=== PATIENT | female | born 1985 | race Caucasian/White ===

== ENCOUNTER 2016-05-03 14:51 | Emergency (ER) | payer OTHER ==
[2016-05-03] MEDS ORDERED: ONDANSETRON 4 MG ORAL DISINTEGRATING TAB (S0181) As Ordered ONE (17:37)
[2016-05-03 18:14] LABS: CONTROL LINE HCG INT CTR LINE PRESENT
--- NOTE | 2016-05-03 19:13 | EDDOCDS ---
Physician Documentation [facility] Name: Aime Hernandez Age: 30 yrs Sex: Female : 1985 Arrival Date: 05/03/2016 Time: 14:51 Bed 30 Private MD: NO PRIMARY PHYSICIAN, . Disposition: 05/03/16 18:54 Discharged to Home/Self Care. Impression: Other specified noninfective gastroenteritis and colitis. - Condition is Stable. - Discharge Instructions: Viral Gastroenteritis. - Prescriptions for ZOFRAN ODT 4 mg - dissolve 1 tablet by ORAL route 4 times per day As needed do not chew, do not swallow whole; 10 tablet. - Medication Reconciliation, Local Pharmacy Hours form. - [facility]; When: Call to arrange an appointment; Reason: To establish care. - Problem is new. - Symptoms have improved. - Notes: You are not Keep hydrated Return to the ED for any further concerns Historical: - Allergies: no known allergies; - Home Meds: 1. Mirena 20 mcg/24 hr (5 years) intrauterine IUD - PMHx: Frequent UTI; Kidney stones; - PSHx: Cholecystectomy; Lithotripsy; - Social history: Smoking status: Patient states was never smoker of tobacco. No barriers to communication noted, The patient speaks fluent Ethiopian, Speaks appropriately for age. - Family history: Not pertinent. - : The pt / caregiver states he / she is not on anticoagulants. Home medication list is obtained from the patient. - Exposure Risk Screening:: None identified. CRYSTALIZER: 05/03 15:10 LMP N/A - control method mlb1 Vital Signs: 14:52 BP 114 / 79; Pulse 107; Resp 18; Temp 96.8; Pulse Ox 96% on R/A; Weight 77.11 kg / 170 elp lbs; Height 5 ft. 7 in. (170.18 cm); 17:56 BP 113 / 70 Supine; Pulse 72; ms18 17:56 BP 117 / 75 Sitting; Pulse 79; ms18 17:56 BP 115 / 81 Standing; Pulse 82; ms18 19:10 BP 121 / 84; Pulse 80; Resp 17; Temp 97.6(O); Pulse Ox 99% on R/A; mb9 14:52 Body Mass Index 26.63 (77.11 kg, 170.18 cm) elp MDM: 16:32 [facility] Payment Agreement was scanned into [employer] and attached to record. [facility] 16:32 Financial registration complete. gjb 16:54 Orthostatic VS ordered. le 16:54 Ondansetron ODT Oral Disintegrating Tablet 4 mg PO once ordered. le 16:54 Fluid Challenge ordered. le 16:54 HCG,Serum Qualitative Ordered. EDMS 18:53 HCG,Serum Qualitative Reviewed. le Administered Medications: 17:39 Drug: Ondansetron ODT 4 mg [ondansetron 4 mg disintegrating tablet (1 tabs)] Route: PO; ms18 18:17 Follow up: Response: Nausea is decreased mb9 Signatures: Dispatcher [employer] EDRI Maxi Cardenas RN RN mlb1 Massiel Hoffman, NIECY TOWER ATTENDANT Maxi Smyth,RN RN mb9 Francisca Prado gjKacie Macias RN ms18 The chart was reviewed and I authenticate all verbal orders and agree with the evaluation and treatment provided.Corrections: (The following items were deleted from the chart) 15:11 15:10 Home Meds: none; mlb1 mlnavid Attachments: 16:32 [facility] Payment Agreement [facility] MTDD
--- NOTE | 2016-05-03 19:13 | EDDOCDS ---
Nurse's Notes [facility] Name: Aime Hernandez Age: 30 yrs Sex: Female : 1985 Arrival Date: 05/03/2016 Time: 14:51 Bed 30 Private MD: NO PRIMARY PHYSICIAN, . Diagnosis: Other specified noninfective gastroenteritis and colitis Presentation: 05/03 15:08 Presenting complaint: Patient states: N/V/D abdominal cramping, "one positive home mlb1 and one negative", began three days ago. Adult Sepsis Screening: The patient does not have new or worsening altered mentation. Patient's respiratory rate is less than 22. Systolic blood pressure is greater than 100. Patient has a qSOFA score of 0- Negative Sepsis Screen. Suicide/Homicide risk assessment- the patient denies having any suicidal and/or homicidal ideations and does not present with any other emotional, behavioral or mental health complaints. Status: Patient is not a enrollment services vice president or dependent. Transition of care: patient was not received from another setting of care. 15:08 Acuity: FAINA Level 3 mlb1 15:08 Method Of Arrival: Walkin/Carried/Asstd mlb1 Triage Assessment: 15:10 General: Appears in no apparent distress, Behavior is appropriate for age, cooperative. mlb1 Pain: Location: abdomen Pain currently is 2 out of 10 on a pain scale. HIV screening NA for this visit Offered previously. GI: Reports diarrhea, nausea, vomiting. MEETING/EVENT PLANNER: 15:10 LMP N/A - control method mlb1 Historical: - Allergies: no known allergies; - Home Meds: 1. Mirena 20 mcg/24 hr (5 years) intrauterine IUD - PMHx: Frequent UTI; Kidney stones; - PSHx: Cholecystectomy; Lithotripsy; - Social history: Smoking status: Patient states was never smoker of tobacco. No barriers to communication noted, The patient speaks fluent Turkish, Speaks appropriately for age. - Family history: Not pertinent. - : The pt / caregiver states he / she is not on anticoagulants. Home medication list is obtained from the patient. - Exposure Risk Screening:: None identified. Screenin:10 Screening information is obtained from the patient. Fall risk: No risks identified. mb9 Assistance ADL's: requires no assistance with activities of daily living. Abuse/DV Screen: The patient / caregiver reports he/she is: not in a situation that causes fear, pain or injury. Nutritional screening: No deficits noted. Advance Directives: There is no active DNR order. home support is adequate. Assessment: 17:57 General: Appears in no apparent distress, uncomfortable, Behavior is appropriate for ms18 age, cooperative. Pain: Location: right lower quadrant and left lower quadrant. Neurological: Level of Consciousness is awake, alert, obeys commands, Oriented to. Respiratory: No deficits noted. GI: Abdomen is flat, non- distended. Derm: Skin is pink, warm & dry. 18:16 General: Appears uncomfortable, Behavior is appropriate for age, cooperative. mb9 Respiratory: Airway is patent Respiratory effort is even, unlabored. GI: Reports nausea. 19:10 Reassessment: Patient appears in no apparent distress at this time. Patient states mb9 symptoms have improved. General: Appears. General: Appears in no apparent distress, Behavior is cooperative. Respiratory: Airway is patent Respiratory effort is even, unlabored. Vital Signs: 14:52 BP 114 / 79; Pulse 107; Resp 18; Temp 96.8; Pulse Ox 96% on R/A; Weight 77.11 kg; elp Height 5 ft. 7 in. (170.18 cm); 17:56 BP 113 / 70 Supine; Pulse 72; ms18 17:56 BP 117 / 75 Sitting; Pulse 79; ms18 17:56 BP 115 / 81 Standing; Pulse 82; ms18 19:10 BP 121 / 84; Pulse 80; Resp 17; Temp 97.6(O); Pulse Ox 99% on R/A; mb9 14:52 Body Mass Index 26.63 (77.11 kg, 170.18 cm) [facility] Vitals: 14:52 Log In Time: May 03, 2016 at 14:50. [facility] ED Course: 14:52 Patient visited by Richa Rothman PCA. elp 14:52 NO PRIMARY PHYSICIAN, . is Private Physician. elp 14:52 Patient moved to Waiting elp 14:54 Patient visited by Richa Rothman PCA. elp 14:54 Patient moved to Pre RCE elp 15:08 Patient visited by Maxi Cardenas, ELIZABETH. mlb1 15:09 Triage Initiated mlb1 15:11 Patient visited by Maxi Cardenas RN. mlb1 16:16 Massiel Hoffman FNP is [facility]. le 16:16 Patient moved to 30 [facility] 16:23 Patient visited by Massiel Hoffman FNP. le 16:23 Patient visited by Massiel Hoffman FNP. le 16:32 [facility] Payment Agreement was scanned into [facility] and attached to record. gjb 16:37 Patient name changed from Aime\\S\\Alesia\\S\\David\\S\\ to Aime\\S\\L\\S\\David. EDMS 17:39 Patient visited by Kacie Priest RN. ms18 18:16 Patient visited by Maxi Forbes RN. mb9 18:54 [facility] is Referral Physician. le 19:10 The patient / caregiver is instructed regarding the plan of care and ED course. mb9 19:10 No IV's were initiated during this patient's visit. No procedures done that require mb9 assistance. Administered Medications: 17:39 Drug: Ondansetron ODT 4 mg [ondansetron 4 mg disintegrating tablet (1 tabs)] Route: PO; ms18 18:17 Follow up: Response: Nausea is decreased mb9 Order Results: Lab Order: HCG,Serum Qualitative; SPEC'M 05/03/16 17:44 Test: HCG, SERUM QUALITATIVE; Value: NEGATIVE; Range: NEGATIVE; Status: F Outcome: 18:54 Discharge ordered by Provider. le 19:10 Discharge Assessment: Patient awake, alert and oriented x 3. No cognitive and/or mb9 functional deficits noted. Patient verbalized understanding of disposition instructions. patient administered narcotics - no. The following High Risk Discharge criteria are identified: None. Discharged to home ambulatory. Condition: good Condition: stable Condition: improved. Discharge instructions given to patient, Instructed on discharge instructions, follow up and referral plans. medication usage, Demonstrated understanding of instructions, medications, Pt was receptive of discharge instructions/ teaching. Prescriptions given X 1. No special radiology studies were completed. Property :Personal belongings accompany Pt. 19:12 Patient left the ED. mb9 Signatures: Dispatcher [employer] EDMS Chloe Anaya RN RN mcp Barney, Michael B, RN RN mlb1 Massiel Hoffman FNP FNP le Patchen, Richa, POND SUPERVISOR POND SUPERVISOR elp Kacie Priest RN RN ms18 Maxi ForbesRN RN mb9 Francisca Prado Corrections: (The following items were deleted from the chart) 15:11 15:10 Home Meds: none; mlb1 mlb1 MTDD
--- NOTE | 2016-05-05 20:14 | EDDOCDS ---
Physician Documentation [facility] Name: Aime Hernandez Age: 30 yrs Sex: Female : 1985 Arrival Date: 05/03/2016 Time: 14:51 Bed 30 Private MD: NO PRIMARY PHYSICIAN, . Disposition: 05/03/16 18:54 Discharged to Home/Self Care. Impression: Other specified noninfective gastroenteritis and colitis. - Condition is Stable. - Discharge Instructions: Viral Gastroenteritis. - Prescriptions for ZOFRAN ODT 4 mg - dissolve 1 tablet by ORAL route 4 times per day As needed do not chew, do not swallow whole; 10 tablet. - Medication Reconciliation, Local Pharmacy Hours form. - Follow up: [facility]; When: Call to arrange an appointment; Reason: To establish care. - Problem is new. - Symptoms have improved. - Notes: You are not Keep hydrated Return to the ED for any further concerns Historical: - Allergies: no known allergies; - Home Meds: 1. Mirena 20 mcg/24 hr (5 years) intrauterine IUD - PMHx: Frequent UTI; Kidney stones; - PSHx: Cholecystectomy; Lithotripsy; - Social history: Smoking status: Patient states was never smoker of tobacco. No barriers to communication noted, The patient speaks fluent Palauan, Speaks appropriately for age. - Family history: Not pertinent. - : The pt / caregiver states he / she is not on anticoagulants. Home medication list is obtained from the patient. - Exposure Risk Screening:: None identified. TONGUE AND QUARTER STITCHER: 05/03 15:10 LMP N/A - control method mlb1 Vital Signs: 14:52 BP 114 / 79; Pulse 107; Resp 18; Temp 96.8; Pulse Ox 96% on R/A; Weight 77.11 kg / 170 elp lbs; Height 5 ft. 7 in. (170.18 cm); 17:56 BP 113 / 70 Supine; Pulse 72; ms18 17:56 BP 117 / 75 Sitting; Pulse 79; ms18 17:56 BP 115 / 81 Standing; Pulse 82; ms18 19:10 BP 121 / 84; Pulse 80; Resp 17; Temp 97.6(O); Pulse Ox 99% on R/A; mb9 14:52 Body Mass Index 26.63 (77.11 kg, 170.18 cm) elp MDM: 16:32 [facility] Payment Agreement was scanned into [employer] and attached to record. [facility] 16:32 Financial registration complete. gjb 16:54 Orthostatic VS ordered. le 16:54 Ondansetron ODT Oral Disintegrating Tablet 4 mg PO once ordered. le 16:54 Fluid Challenge ordered. le 16:54 HCG,Serum Qualitative Ordered. EDMS 18:53 HCG,Serum Qualitative Reviewed. le 05/04 12:42 T-Sheet-- Draft Copy was scanned into [employer] and attached to record. gb Administered Medications: 05/03 17:39 Drug: Ondansetron ODT 4 mg [ondansetron 4 mg disintegrating tablet (1 tabs)] Route: PO; ms18 18:17 Follow up: Response: Nausea is decreased mbJames Signatures: Dispatcher [employer] EDMS Helen Hays, Reg Reg gb Maxi Cardenas RN ELIZABETH mlb1 Massiel Hoffman, SUPERVISOR LOADING SUPERVISOR LOADING Maxi Smyth RN RN mb9 Francisca Prado gjKacie Macias RN ms18 The chart was reviewed and I authenticate all verbal orders and agree with the evaluation and treatment provided.Corrections: (The following items were deleted from the chart) 15:11 15:10 Home Meds: none; rory valadez Attachments: 16:32 [facility] Payment Agreement [facility] 05/04 12:42 T-Sheet-- Draft Copy gb Chart Complete MTDD
--- NOTE | 2016-05-05 20:14 | EDDOCDS ---
Physician Documentation [facility] Name: Aime Hernandez Age: 30 yrs Sex: Female : 1985 Arrival Date: 05/03/2016 Time: 14:51 Bed 30 Private MD: NO PRIMARY PHYSICIAN, . Disposition: 05/03/16 18:54 Discharged to Home/Self Care. Impression: Other specified noninfective gastroenteritis and colitis. - Condition is Stable. - Discharge Instructions: Viral Gastroenteritis. - Prescriptions for ZOFRAN ODT 4 mg - dissolve 1 tablet by ORAL route 4 times per day As needed do not chew, do not swallow whole; 10 tablet. - Medication Reconciliation, Local Pharmacy Hours form. - Follow up: [facility]; When: Call to arrange an appointment; Reason: To establish care. - Problem is new. - Symptoms have improved. - Notes: You are not Keep hydrated Return to the ED for any further concerns Historical: - Allergies: no known allergies; - Home Meds: 1. Mirena 20 mcg/24 hr (5 years) intrauterine IUD - PMHx: Frequent UTI; Kidney stones; - PSHx: Cholecystectomy; Lithotripsy; - Social history: Smoking status: Patient states was never smoker of tobacco. No barriers to communication noted, The patient speaks fluent Indonesian, Speaks appropriately for age. - Family history: Not pertinent. - : The pt / caregiver states he / she is not on anticoagulants. Home medication list is obtained from the patient. - Exposure Risk Screening:: None identified. RECOVERY ENGINEER: 05/03 15:10 LMP N/A - control method mlb1 Vital Signs: 14:52 BP 114 / 79; Pulse 107; Resp 18; Temp 96.8; Pulse Ox 96% on R/A; Weight 77.11 kg / 170 elp lbs; Height 5 ft. 7 in. (170.18 cm); 17:56 BP 113 / 70 Supine; Pulse 72; ms18 17:56 BP 117 / 75 Sitting; Pulse 79; ms18 17:56 BP 115 / 81 Standing; Pulse 82; ms18 19:10 BP 121 / 84; Pulse 80; Resp 17; Temp 97.6(O); Pulse Ox 99% on R/A; mb9 14:52 Body Mass Index 26.63 (77.11 kg, 170.18 cm) elp MDM: 16:32 [facility] Payment Agreement was scanned into [employer] and attached to record. [facility] 16:32 Financial registration complete. gjb 16:54 Orthostatic VS ordered. le 16:54 Ondansetron ODT Oral Disintegrating Tablet 4 mg PO once ordered. le 16:54 Fluid Challenge ordered. le 16:54 HCG,Serum Qualitative Ordered. EDMS 18:53 HCG,Serum Qualitative Reviewed. le 05/04 12:42 T-Sheet-- Draft Copy was scanned into [employer] and attached to record. gb Administered Medications: 05/03 17:39 Drug: Ondansetron ODT 4 mg [ondansetron 4 mg disintegrating tablet (1 tabs)] Route: PO; ms18 18:17 Follow up: Response: Nausea is decreased mbJames Signatures: Dispatcher [employer] EDMS Helen Hays, Reg Reg gb Maxi Cardenas RN ELIZABETH mlb1 Massiel Hoffman, [employer]OSK SALES REPRESENTATIVE KIOSK SALES REPRESENTATIVE Maxi Smyth RN RN mb9 Francisca Prado gjKacie Macias RN ms18 The chart was reviewed and I authenticate all verbal orders and agree with the evaluation and treatment provided.Corrections: (The following items were deleted from the chart) 15:11 15:10 Home Meds: none; rory valadez Attachments: 16:32 [facility] Payment Agreement [facility] 05/04 12:42 T-Sheet-- Draft Copy gb Chart Complete MTDD
--- NOTE | 2016-05-05 20:14 | EDDOCDS ---
Nurse's Notes [facility] Name: Aime Hernandez Age: 30 yrs Sex: Female : 1985 Arrival Date: 05/03/2016 Time: 14:51 Bed 30 Private MD: NO PRIMARY PHYSICIAN, . Diagnosis: Other specified noninfective gastroenteritis and colitis Presentation: 05/03 15:08 Presenting complaint: Patient states: N/V/D abdominal cramping, "one positive home mlb1 and one negative", began three days ago. Adult Sepsis Screening: The patient does not have new or worsening altered mentation. Patient's respiratory rate is less than 22. Systolic blood pressure is greater than 100. Patient has a qSOFA score of 0- Negative Sepsis Screen. Suicide/Homicide risk assessment- the patient denies having any suicidal and/or homicidal ideations and does not present with any other emotional, behavioral or mental health complaints. Status: Patient is not a agricultural service technician or dependent. Transition of care: patient was not received from another setting of care. 15:08 Acuity: FAINA Level 3 mlb1 15:08 Method Of Arrival: Walkin/Carried/Asstd mlb1 Triage Assessment: 15:10 General: Appears in no apparent distress, Behavior is appropriate for age, cooperative. mlb1 Pain: Location: abdomen Pain currently is 2 out of 10 on a pain scale. HIV screening NA for this visit Offered previously. GI: Reports diarrhea, nausea, vomiting. VET ASSISTANT: 15:10 LMP N/A - control method mlb1 Historical: - Allergies: no known allergies; - Home Meds: 1. Mirena 20 mcg/24 hr (5 years) intrauterine IUD - PMHx: Frequent UTI; Kidney stones; - PSHx: Cholecystectomy; Lithotripsy; - Social history: Smoking status: Patient states was never smoker of tobacco. No barriers to communication noted, The patient speaks fluent Macedonian, Speaks appropriately for age. - Family history: Not pertinent. - : The pt / caregiver states he / she is not on anticoagulants. Home medication list is obtained from the patient. - Exposure Risk Screening:: None identified. Screenin:10 Screening information is obtained from the patient. Fall risk: No risks identified. mb9 Assistance ADL's: requires no assistance with activities of daily living. Abuse/DV Screen: The patient / caregiver reports he/she is: not in a situation that causes fear, pain or injury. Nutritional screening: No deficits noted. Advance Directives: There is no active DNR order. home support is adequate. Assessment: 17:57 General: Appears in no apparent distress, uncomfortable, Behavior is appropriate for ms18 age, cooperative. Pain: Location: right lower quadrant and left lower quadrant. Neurological: Level of Consciousness is awake, alert, obeys commands, Oriented to. Respiratory: No deficits noted. GI: Abdomen is flat, non- distended. Derm: Skin is pink, warm & dry. 18:16 General: Appears uncomfortable, Behavior is appropriate for age, cooperative. mb9 Respiratory: Airway is patent Respiratory effort is even, unlabored. GI: Reports nausea. 19:10 Reassessment: Patient appears in no apparent distress at this time. Patient states mb9 symptoms have improved. General: Appears. General: Appears in no apparent distress, Behavior is cooperative. Respiratory: Airway is patent Respiratory effort is even, unlabored. Vital Signs: 14:52 BP 114 / 79; Pulse 107; Resp 18; Temp 96.8; Pulse Ox 96% on R/A; Weight 77.11 kg; elp Height 5 ft. 7 in. (170.18 cm); 17:56 BP 113 / 70 Supine; Pulse 72; ms18 17:56 BP 117 / 75 Sitting; Pulse 79; ms18 17:56 BP 115 / 81 Standing; Pulse 82; ms18 19:10 BP 121 / 84; Pulse 80; Resp 17; Temp 97.6(O); Pulse Ox 99% on R/A; mb9 14:52 Body Mass Index 26.63 (77.11 kg, 170.18 cm) [facility] Vitals: 14:52 Log In Time: May 03, 2016 at 14:50. [facility] ED Course: 14:52 Patient visited by Richa Rothman PCA. elp 14:52 NO PRIMARY PHYSICIAN, . is Private Physician. elp 14:52 Patient moved to Waiting elp 14:54 Patient visited by Richa Rothman PCA. elp 14:54 Patient moved to Pre RCE elp 15:08 Patient visited by Maxi Cardenas, ELIZABETH. mlb1 15:09 Triage Initiated mlb1 15:11 Patient visited by Maxi Cardenas RN. mlb1 16:16 [facility] le 16:16 Patient moved to 30 [facility] 16:23 Patient visited by Massiel Hoffman FNP. le 16:23 Patient visited by Massiel Hoffman FNP. le 16:32 [facility] Payment Agreement was scanned into [employer] and attached to record. gjb 16:37 Patient name changed from Aime\\S\\Alesia\\S\\David\\S\\ to Aime\\S\\L\\S\\David. EDMS 17:39 Patient visited by Kacie Priest RN. ms18 18:16 Patient visited by Maxi Forbes RN. mb9 18:54 [facility] is Referral Physician. le 19:10 The patient / caregiver is instructed regarding the plan of care and ED course. mb9 19:10 No IV's were initiated during this patient's visit. No procedures done that require mb9 assistance. 05/04 12:42 T-Sheet-- Draft Copy was scanned into [employer] and attached to record. gb Administered Medications: 05/03 17:39 Drug: Ondansetron ODT 4 mg [ondansetron 4 mg disintegrating tablet (1 tabs)] Route: PO; ms18 18:17 Follow up: Response: Nausea is decreased mb9 Order Results: Lab Order: HCG,Serum Qualitative; SPEC'M 05/03/16 17:44 Test: HCG, SERUM QUALITATIVE; Value: NEGATIVE; Range: NEGATIVE; Status: F Outcome: 18:54 Discharge ordered by Provider. le 19:10 Discharge Assessment: Patient awake, alert and oriented x 3. No cognitive and/or mb9 functional deficits noted. Patient verbalized understanding of disposition instructions. patient administered narcotics - no. The following High Risk Discharge criteria are identified: None. Discharged to home ambulatory. Condition: good Condition: stable Condition: improved. Discharge instructions given to patient, Instructed on discharge instructions, follow up and referral plans. medication usage, Demonstrated understanding of instructions, medications, Pt was receptive of discharge instructions/ teaching. Prescriptions given X 1. No special radiology studies were completed. Property :Personal belongings accompany Pt. 19:12 Patient left the ED. mb9 Signatures: Dispatcher [employer] EDMS Chloe Anaya RN RN [facility] Helen Hays, Reg Reg Maxi Fraire RN RN mlb1 Massiel Hoffman, FARMWORKER ANIMAL FARMWORKER ANIMAL Richa Wallace, FABRIC AND ACCESSORIES ESTIMATOR FABRIC AND ACCESSORIES ESTIMATOR elp Kacie Priest RN RN ms18 Maxi ForbesRN RN mb9 Francisca Prado Corrections: (The following items were deleted from the chart) 15:11 15:10 Home Meds: none; mlb1 mlb1 Chart Complete MTDD
== END 2016-05-03 19:12 | disposition home or self-care (01) ==
LOC: M ED 14:51
DX: K52.9 Noninfective gastroenteritis and colitis, unspecified (principal); N39.0 Urinary tract infection, site not specified; Z87.440 Personal history of urinary (tract) infections; Z87.442 Personal history of urinary calculi; Z97.5 Presence of (intrauterine) contraceptive device; Z79.3 Long term (current) use of hormonal contraceptives

== ENCOUNTER 2016-08-16 21:23 | Emergency (ER) | payer OTHER ==
[~2016-08-16] VITALS: Ht 170.2 cm; Wt 68.0 kg
[2016-08-16] MEDS ORDERED: MULT1TAB10 PO (21:39)
[2016-08-16] MEDS ORDERED: METOCLOPRAMIDE INJ 10MG/2ML VIAL (J2765) IV ONE (22:45)
[2016-08-16] MEDS ORDERED: NS 1,000 ML IV ONE (22:45)
[2016-08-16 23:25] LABS: BASO % 0.5 % (0.0-1.0); EOS # 0.1 K/mm3 (0.0-0.50); EOS % 2.7 % (0.0-3.0); LARGE UNSTAINED CELL # 0.1 K/mm3 (0.0-0.4); LARGE UNSTAINED CELL % 1.9 % (0.0-4.0); LYMPH # 1.9 K/mm3 (1.5-4.5); LYMPH % 37.2 % (24.0-44.0); MEAN CORPUSCULAR HEMOGLOBIN 31.1 pg (27.0-33.0); MEAN CORPUSCULAR HGB CONC 33.8 g/dl (32.0-36.5); MONO # 0.4 K/mm3 (0.0-0.8); NEUTROPHILS # 2.4 K/mm3 (1.8-7.7); NEUTROPHILS % 49.7 % (36.0-66.0); PLATELET COUNT, AUTOMATED 216 k/mm3 (150-450); RED CELL DISTRIBUTION WIDTH 12.2 % (11.5-14.5); WHITE BLOOD COUNT 4.9 K/mm3 (4.0-10.0)
[2016-08-16 23:40] LABS: ANION GAP 5 MEQ/L (8-16); BLOOD UREA NITROGEN 14 MG/DL (7-18); CALCIUM LEVEL 8.8 MG/DL (8.5-10.1); CARBON DIOXIDE LEVEL 28 MEQ/L (21-32); CHLORIDE LEVEL 108 MEQ/L (98-107); CREATININE FOR GFR 0.59 MG/DL (0.55-1.02); GLOMERULAR FILTRATION RATE > 60.0 (>60); GLUCOSE, FASTING 100 MG/DL (70-105); POTASSIUM SERUM 3.8 MEQ/L (3.5-5.1); SODIUM LEVEL 141 MEQ/L (136-145)
[2016-08-17 00:09] VITALS: BP 109/68
== END 2016-08-17 00:30 | disposition home or self-care (01) ==
LOC: M ED 23:40
DX: R51 Headache (principal)

== ENCOUNTER → 2019-12-16 | Outpatient (CLI) | payer BC ==
[~2019-12-16] MED LIST: MULT1TAB10 PO
--- NOTE | 2020-01-06 13:10 | REP ---
LUMBOSACRAL SPINE SERIES CLINICAL: Lower back pain without trauma. TECHNIQUE: AP, lateral, bilateral oblique, and coned down views of the lumbosacral spine. FINDINGS: Alignment and lordosis maintained. No acute fracture/compression injury or subluxation. Endplate sclerosis with disc space narrowing at L4-5 and L5-S1 noted along with mild associated hypertrophic facet changes. Remainder of the examination appears normal. IMPRESSION: Moderate degenerative changes at L4-5 and L5-S1. MTDD
--- NOTE | 2020-01-06 13:10 | REP ---
RIGHT HIP SERIES CLINICAL: Right hip pain. TECHNIQUE: Neutral and frog lateral views of the right hip. FINDINGS: Osseous structures, joint spaces, and surrounding soft tissues are normal and age appropriate. No evidence for acute or healed injury. No overt arthritic changes. IMPRESSION: Normal age appropriate right hip radiographs. MTDD
== END ==
LOC: M WUC 10:58
PROVIDERS: ATTEND Nurse Practitioner Family
DX: M51.36 Other intervertebral disc degeneration, lumbar region (principal); M51.37 Other intervertebral disc degeneration, lumbosacral region; M25.551 Pain in right hip

== ENCOUNTER 2020-05-04 08:33 | Emergency (ER) | payer BC ==
[~2020-05-04] VITALS: Ht 170.2 cm; Wt 78.3 kg
[2020-05-04] MEDS ORDERED: PREN1CHW6 PO (08:40)
[2020-05-04 13:18] VITALS: BP 135/82
[2020-05-05] MEDS ORDERED: ATIV2TAB PO (06:04)
== END 2020-05-04 13:20 | disposition home or self-care (01) ==
LOC: M ED 08:33
DX: O99.341 Other mental disorders complicating pregnancy, first trimester (principal); F41.9 Anxiety disorder, unspecified; Z79.899 Other long term (current) drug therapy; Z3A.00 Weeks of gestation of pregnancy not specified

== ENCOUNTER 2020-05-05 04:26 | Emergency (ER) | payer BC ==
[~2020-05-05] VITALS: Ht 170.2 cm; Wt 77.5 kg
[2020-05-05 04:26] VITALS: BP 139/85
[~2020-05-05 04:26] MED LIST changes: +PREN1CHW6 PO
--- OUTSIDE RECORDS SUMMARY | 2020-05-05 04:31 | CCD | Continuity of Care Document ---
Author Author Aime MOLINA CELLOPHANE TESTER Organization Unknown Address [facility] [place] [address] Phone [phone] Problems Description No Information Available Social History Type Date Description Comments Sex Unknown ETOH Use Occasionally consumes alcohol Tobacco Use Start: Unknown Patient has never smoked Smoking Status Reviewed: 04/14/20 Patient has never smoked Allergies, Adverse Reactions, Alerts Description No Known Drug Allergies Medications Active Medications SIG Qnty Indications Ordering Provide r Date No Active Medications Unknown 09/2020 History Medications Prednisone 20mg Tablets 1 tab twice a day for 4 days 8tabs M54.5 Jt Sherwood JR., M.D. 11/2019 - 12/20/2019 Cyclobenzaprine HCL 5mg Tablets take 1 to 2 tablets by mouth three times a day as needed for muscle spasms 30tabs M54.5 Jt Sherwood JR., M.D. 12/16/2019 - 12/26/2019 Immunizations Description No Information Available Vital Signs Date Vital Result Comment 04/14/2020 6:36pm BP Systolic 114 mmHg BP Diastolic 78 mmHg Heart Rate 83 /min Respiratory Rate 15 /min O2 % BldC Oximetry 98 % Body Temperature 98.0 F Weight 170.00 lb Height 67 inches 5'7" BMI (Body Mass Index) 26.6 kg/m2 Pain Level 2 12/16/2019 10:37am BP Systolic 112 mmHg BP Diastolic 76 mmHg Heart Rate 81 /min O2 % BldC Oximetry 99 % Body Temperature 98.5 F Weight 172.00 lb Height 67 inches 5'7" BMI (Body Mass Index) 26.9 kg/m2 Pain Level 5 Results Description No Information Available Procedures Description No Information Available Medical Devices Description No Information Available Encounters Type Date Location Provider Dx Diagnosis Office Visit 12/16/2019 11:15a Main Office Judith Molina NP M25. 551 Pain in right hip M54.5 Low back pain Assessments Date Code Description Provider 04/14/2020 M79.671 Pain in right foot Judith cortez NP 04/14/2020 M54.5 Low back pain Judith jones NP 12/16/2019 M25.551 Pain in right hip Judith pollack NP 12/16/2019 M54.5 Low back pain JOSE Brown 12/16/2019 M54.5 Low back pain Judith jones NP 12/16/2019 M25.551 Pain in right hip JOSE Mason Plan of Treatment 04/14/2020 - Judith Molina NP* M79.671 Pain in right foot* Comments:* ?bunion vs irritation from work bootsRICE, alternate with heatfollow up PRN or with PCPpatient v/u & agrees to plan * M54.5 Low back pain* Comments:* xray deferred by patientrefer to [facility] for ongoing issue, patient reports minimal relief with steroids & muscle relaxerRICE, alternate with heatdiscussed red flag sx that warrant re-ev aluation or trip to the ERf/u PRN or with PCPpatient v/u & agrees to plan * All * New Medication:* No Active Medications - Functional Status Description No Information Available Mental Status Description No Information Available Referrals Description No Information Available
--- OUTSIDE RECORDS SUMMARY | 2020-05-05 04:31 | CCD ---
Author Aime Clemente Organization Unknown Address [address] [address] Phone Care Team Providers Care Push Button Switch Assembler Name Role Phone Anai Blood PCP Allergies, Adverse Reactions, Alerts No Data in Section Problem List Concept Problem Description Status Start Date Created Date Resolv ed Date Snomed Code F33.9 Major Depressive Disorder, Recurrent episode, Unspecif ied Active 05/04/2020 Medications No Data in Section Social History Social History Element Description Concept Effective Date Smoking Status Unknown if ever smoked [id number] Immunizations No Data in Section Vital Signs No Data in Section Procedures Date Concept Id Description Targeted Site Concept Targeted Site Concept Type 05/04/2020 H7025-06 TEMPMHCTelemed-Crisis Brief CPT Patient has no history of implantable de vices Encounters Encounter Start Date End Date Encounter Type Description Diagnosis Di agnosis Desc Location Author First Name Author Last Name Npid Taxonomy Cod e Taxonomy Desc Phone Number Location Addr1 Location Addr2 Location [facility] Location [facility] Location [facility] [id number] 05/04/2020 05/04/2020 L6146-74 TEMPMHCTelemed-Crisis Brief F33.9 Major depressive disorder, recurrent, unspecified [facility] Jeremi Ospina [id number] Assistant Professor Of Life Sciences [phone] [address] [address] Plan of Treatment No Data in Section Lab Results No Data in Section Instructions No Data in Section Insurance Providers Insurance Id Policy Effective Date Policy Thru Date Company N warren [id number] 2019 [employer]
--- OUTSIDE RECORDS SUMMARY | 2020-05-05 04:31 | CCD | Continuity of Care Document ---
Author Author Aime MILLIGAN Organization Unknown Address [facility] [place] [address] Phone [phone] Care Team Providers Care Green Ware Caster Name Role Phone [facility] AUTM [phone] Problems Description No Information Available Social History Type Date Description Comments Sex Unknown ETOH Use Occasionally consumes alcohol Tobacco Use Start: Unknown Patient has never smoked Smoking Status Reviewed: 04/17/20 Patient has never smoked Allergies, Adverse Reactions, Alerts Description No Known Drug Allergies Medications Active Medications SIG Qnty Indications Ordering Provide r Date Sulfamethoxazole/Trimethoprim DS 800-160mg Tablets 1 by mouth twice a day x 7 days 14tabs L03.115 Jt Sherwood JR., M.D. 04/17/2020 History Medications No Active Medications Unknown 09/2020 - 04/17/2020 Prednisone 20mg Tablets 1 tab twice a day for 4 days 8tabs M54.5 Jt Sherwood JR., M.D. 11/2019 - 12/20/2019 Cyclobenzaprine HCL 5mg Tablets take 1 to 2 tablets by mouth three times a day as needed for muscle spasms 30tabs M54.5 Jt Sherwood JR., M.D. 12/16/2019 - 12/26/2019 Immunizations Description No Information Available Vital Signs Date Vital Result Comment 04/17/2020 3:26pm BP Systolic 128 mmHg BP Diastolic 85 mmHg Heart Rate 92 /min Respiratory Rate 18 /min O2 % BldC Oximetry 97 % Body Temperature 98.0 F Weight 160.00 lb Pain Level 10 04/14/2020 6:36pm BP Systolic 114 mmHg BP Diastolic 78 mmHg Heart Rate 83 /min Respiratory Rate 15 /min O2 % BldC Oximetry 98 % Body Temperature 98.0 F Weight 170.00 lb Height 67 inches 5'7" BMI (Body Mass Index) 26.6 kg/m2 Pain Level 2 Results Description No Information Available Procedures Description No Information Available Medical Devices Description No Information Available Encounters Type Date Location Provider Dx Diagnosis Office Visit 04/17/2020 3:10p Main Office JOSE Branham L03.1 15 Cellulitis of right lower limb Office Visit 04/14/2020 5:40p Main Office Judith Tellez NP M79. 671 Pain in right foot M54.5 Low back pain Office Visit 12/16/2019 11:15a Main Office Judith Tellez NP M25. 551 Pain in right hip M54.5 Low back pain Assessments Date Code Description Provider 04/17/2020 L03.115 Cellulitis of right lower limb JOSE Deleon 04/14/2020 M79.671 Pain in right foot Judith Jennyfertuan bazzia, TRACEY 04/14/2020 M54.5 Low back pain Judith Jennyfersalima jones, CASHIER PAYMENTS RECEIVED 12/16/2019 M25.551 Pain in right hip Judithamberly pollack, TRACEY 12/16/2019 M54.5 Low back pain JOSE Brown 12/16/2019 M54.5 Low back pain Judithamberly jones, CASHIER PAYMENTS RECEIVED 12/16/2019 M25.551 Pain in right hip JOSE Mason Plan of Treatment 04/17/2020 - JOSE Branham* L03.115 Cellulitis of right lower limb* New Medication:* Sulfamethoxazole/Trimethoprim DS 800-160 mg - 1 by mouth twice a day x 7 days * Comments:* abx as directed, warm soapy soaks multiple times daily, elevate when sitting. follow up with PCP or return if worse or not baseline by end of abx course Functional Status Description No Information Available Mental Status Description No Information Available Referrals Refer to Reason for Referral Status Appt Date Uriel Islas MD Created [address] [place] [address] [phone]
--- OUTSIDE RECORDS SUMMARY | 2020-05-05 04:31 | CCD ---
Author Author Aime Blood Organization Unknown Address [address] [address] Phone Care Team Providers Care Party Plan Sales Unit Advisor Name Role Phone Jeremi Anai PCP Allergies, Adverse Reactions, Alerts No Data in Section Problem List Concept Problem Description Status Start Date Created Date Resolv ed Date Snomed Code F33.9 Major Depressive Disorder, Recurrent episode, Unspecif ied Active 04/09/2020 Medications No Data in Section Social History Social History Element Description Concept Effective Date Smoking Status Unknown if ever smoked [id number] Immunizations No Data in Section Vital Signs No Data in Section Procedures Date Concept Id Description Targeted Site Concept Targeted Site Concept Type 04/07/2020 63180 Brief Individual Psychotherapy - 30 min CPT Patient has no history of implantable de vices Encounters Encounter Start Date End Date Encounter Type Description Diagnosis Di agnosis Desc Location Author First Name Author Last Name Npid Taxonomy Cod e Taxonomy Desc Phone Number Location Addr1 Location Addr2 Location [facility] Location [facility] [id number] 04/07/2020 04/07/2020 85709 Brief Individual Psychoth erapy - 30 min F33.9 Major depressive disorder, recurrent, unspecified Comm [facility] Jeremi Ospina [id number] Leak Detector [id number] [address] [address] Plan of Treatment No Data in Section Lab Results No Data in Section Instructions No Data in Section Insurance Providers Insurance Id Policy Effective Date Policy Thru Date Company N warren [id number] 2019 [employer]
--- OUTSIDE RECORDS SUMMARY | 2020-05-05 04:31 | CCD | Continuity of Care Document ---
Author Author Aime MOLINA CITIZENSHIP INSTRUCTOR Organization Unknown Address [facility] [place] [address] Phone [phone] Problems Description No Information Available Social History [...] Date Location Provider Dx Diagnosis Office Visit 04/14/2020 5:40p Main Office Judith Molina NP M79. 671 Pain in right foot M54.5 Low back pain Office Visit 12/16/2019 11:15a Main Office Judith Molina NP M25. 551 Pain in right hip M54.5 Low back pain Assessments Date Code Description Provider 04/14/2020 M79.671 Pain in right foot Judith cortez, TRACEY 04/14/2020 M54.5 Low back pain Judith jones NP 12/16/2019 M25.551 Pain in right hip Judith pollack, TRACEY 12/16/2019 M54.5 Low back pain JOSE Brown 12/16/2019 M54.5 Low back pain Judith jones, TRACEY 12/16/2019 M25.551 Pain in right hip JOSE [...]
--- OUTSIDE RECORDS SUMMARY | 2020-05-05 04:31 | CCD ---
Author Author Aime Blood Organization Unknown Address [address] [address] Phone Care Team Providers Care Home Administrator Name Role Phone Jeremi Anai PCP Allergies, Adverse Reactions, Alerts No Data in Section Problem List Concept Problem Description Status Start Date Created Date Resolv ed Date Snomed Code F33.9 Major Depressive Disorder, Recurrent episode, Unspecif ied Active 03/29/2020 Medications No Data in Section Social History Social History Element Description Concept Effective Date Smoking Status Unknown if ever smoked [id number] [id number] Immunizations No Data in Section Vital Signs No Data in Section Procedures Date Concept Id Description Targeted Site Concept Targeted Site Concept Type 03/29/2020 68073 Extended Individual Psychotherapy - 45 min CPT Patient has no history of implantable de vices Encounters Encounter Start Date End Date Encounter Type Description Diagnosis Di agnosis Desc Location Author First Name Author Last Name Npid Taxonomy Cod e Taxonomy Desc Phone Number Location Addr1 Location Addr2 Location [facility] Location [facility] Location [facility] 793506 03/29/2020 03/29/2020 78870 Extended Individual Psych otherapy - 45 min F33.9 Major depressive disorder, recurrent, unspecified Comm [facility] Jeremi Ospina [id number] Rolling Machine Operator [id number] [address] Plan of Treatment No Data in Section Lab Results No Data in Section Instructions No Data in Section Insurance Providers Insurance Id Policy Effective Date Policy Thru Date Company N warren [id number] 2019 [employer]
--- OUTSIDE RECORDS SUMMARY | 2020-05-05 04:31 | CCD | Continuity of Care Document ---
Author Author Aime MILLIGAN Organization Unknown Address [facility] [place] [address] Phone [phone] Care Team Providers Care Real Estate Broker Associate Name Role Phone [facility] AUTM [phone] Problems Description No Information Available Social History [...] M54.5 Low back pain Judith Jennyfersalima jones, AIRCRAFT ELECTRICAL SYSTEMS SPECIALIST 12/16/2019 M25.551 Pain in right hip Judithamberly pollack, TRACEY 12/16/2019 M54.5 Low back pain JOSE Brown 12/16/2019 M54.5 Low back pain Judithamberly jones, AIRCRAFT ELECTRICAL SYSTEMS SPECIALIST 12/16/2019 M25.551 Pain in right hip JOSE [...] Appt Date Uriel Islas MD Created [address] [place] [address] [phone]
--- OUTSIDE RECORDS SUMMARY | 2020-05-05 04:32 | CCD ---
Author Author Aime Blood Organization Unknown Address [address] [place] [address] Phone Care Team Providers Care Row Boss Hoeing Name Role Phone Anai Blood PCP Allergies, Adverse Reactions, Alerts No Data in Section Problem List Concept Problem Description Status Start Date Created Date Resolv ed Date Snomed Code F33.9 Major Depressive Disorder, Recurrent episode, Unspecif ied Active 03/08/2020 Medications No Data in Section Social History Social History Element Description Concept Effective Date Smoking Status Unknown if ever smoked [id number] Immunizations No Data in Section Vital Signs No Data in Section Procedures Date Concept Id Description Targeted Site Concept Targeted Site Concept Type 03/08/2020 59601 Brief Individual Psychotherapy - 30 min CPT Patient has no history of implantable de vices Encounters Encounter Start Date End Date Encounter Type Description Diagnosis Di agnosis Desc Location Author First Name Author Last Name Npid Taxonomy Cod e Taxonomy Desc Phone Number Location Addr1 Location Addr2 Location [facility] Location [facility] Location [facility] [id number] 03/08/2020 03/08/2020 47071 Brief Individual Psychoth erapy - 30 min F33.9 Major depressive disorder, recurrent, unspecified Comm [facility] Jeremi Ospina [phone] [id number] Rocket Engine Tester [id number] [address] [facility] [address] [facility] [address] Plan of Treatment No Data in Section Lab Results No Data in Section Instructions No Data in Section Insurance Providers Insurance Id Policy Effective Date Policy Thru Date Company N warren [id number] 2019 [employer]
--- OUTSIDE RECORDS SUMMARY | 2020-05-05 04:32 | CCD ---
Author Author Aime Blood Organization Unknown Address [address] [place] [address] Phone Care Team Providers Care Salesperson Pets And Pet Supplies Name Role Phone Anai Blood PCP Allergies, Adverse Reactions, Alerts No Data in Section Problem List Concept Problem Description Status Start Date Created Date Resolv ed Date Snomed Code F33.9 Major Depressive Disorder, Recurrent episode, Unspecif ied Active 02/06/2020 Medications No Data in Section Social History Social History Element Description Concept Effective Date Smoking Status Unknown if ever smoked [id number] Immunizations No Data in Section Vital Signs No Data in Section Procedures Date Concept Id Description Targeted Site Concept Targeted Site Concept Type 02/05/2020 48699 Brief Individual Psychotherapy - 30 min CPT Patient has no history of implantable de vices Encounters Encounter Start Date End Date Encounter Type Description Diagnosis Di agnosis Desc Location Author First Name Author Last Name Npid Taxonomy Cod e Taxonomy Desc Phone Number Location Addr1 Location Addr2 Location [facility] Location [facility] Location [facility] [id number] 02/05/2020 02/05/2020 58000 Brief Individual Psychoth erapy - 30 min F33.9 Major depressive disorder, recurrent, unspecified Comm [facility] Jeremi Ospina [phone] [id number] Talent Management Specialist [phone] [address] [facility] [address] [facility] [address] Plan of Treatment No Data in Section Lab Results No Data in Section Instructions No Data in Section Insurance Providers Insurance Id Policy Effective Date Policy Thru Date Company N warren [id number] 2019 [employer]
--- OUTSIDE RECORDS SUMMARY | 2020-05-05 04:32 | CCD ---
Author Author Aime Blood Organization Unknown Address [address] [address] Phone Care Team Providers Care Reading Efficiency Course Director Name Role Phone Jeremi Anai PCP Allergies, Adverse Reactions, Alerts No Data in Section Problem List Concept Problem Description Status Start Date Created Date Resolv ed Date Snomed Code F33.9 Major Depressive Disorder, Recurrent episode, Unspecif ied Active 03/24/2020 Medications No Data in Section Social History Social History Element Description Concept Effective Date Smoking Status Unknown if ever smoked [id number] [id number] Immunizations No Data in Section Vital Signs No Data in Section Procedures Date Concept Id Description Targeted Site Concept Targeted Site Concept Type 03/24/2020 35639 Brief Individual Psychotherapy - 30 min CPT Patient has no history of implantable de vices Encounters Encounter Start Date End Date Encounter Type Description Diagnosis Di agnosis Desc Location Author First Name Author Last Name Npid Taxonomy Cod e Taxonomy Desc Phone Number Location Addr1 Location Addr2 Location [facility] Location [facility] Location [facility] [id number] 03/24/2020 03/24/2020 89253 Brief Individual Psychoth erapy - 30 min F33.9 Major depressive disorder, recurrent, unspecified Comm [facility] Jeremi Ospina [phone] [id number] Creative Recruiter [phone] [address] [address] Plan of Treatment No Data in Section Lab Results No Data in Section Instructions No Data in Section Insurance Providers Insurance Id Policy Effective Date Policy Thru Date Company N warren [id number] 2019 [employer]
--- OUTSIDE RECORDS SUMMARY | 2020-05-05 04:32 | CCD ---
Author Author [facility] Organization [facility] Address Unknown Phone Unavailable Care Team Providers Care Photographer Assistant Name Role Phone MERRICK, BERTA Unavailable Unavailable Anai Blood Unavailable Tellez, Judith DIMENSION QUARRY SUPERVISOR Unavailable Unavailable Tellez, Judith DIMENSION QUARRY SUPERVISOR Unavailable Unavailable Tellez, Judith DIMENSION QUARRY SUPERVISOR Unavailable Unavailable Tellez, Judith DIMENSION QUARRY SUPERVISOR Unavailable Unavailable Tellez, Judith DIMENSION QUARRY SUPERVISOR Unavailable Unavailable Tellez, Judith DIMENSION QUARRY SUPERVISOR Unavailable Unavailable Tellez, Judith DIMENSION QUARRY SUPERVISOR Unavailable Unavailable Tellez, Judith DIMENSION QUARRY SUPERVISOR Unavailable Unavailable Tellez, Judith DIMENSION QUARRY SUPERVISOR Unavailable Unavailable Tellez, Judith DIMENSION QUARRY SUPERVISOR Unavailable Unavailable Tellez, Judith DIMENSION QUARRY SUPERVISOR Unavailable Unavailable Simran Betancur Unavailable Unavailable Simran Betancur Unavailable Unavailable Simran Betancur Unavailable Unavailable Simran Betancur Unavailable Unavailable Betancur, Simran Powerslyn PA Unavailable Unavailable Betancur, Simran Robertsonn PA Unavailable Unavailable Betancur, Simran Powerslyn PA Unavailable Unavailable Betancur, Simran Robertsonn PA Unavailable Unavailable Betancur, Simran Robertsonn PA Unavailable Unavailable Betancur, Simran Robertsonn PA Unavailable Unavailable Re-disclosure Warning The records that you are about to access may contain information from federally-assisted alcohol or drug abuse programs. If such information is present, then the following federally mandated warning applies: This information has been disclosed to you from records protected by federal confidentiality rules (42 CFR part 2). The federal rules prohibit you from making any further disclosure of this information unless further disclosure is expressly permitted by the written consent of the person to whom it pertains or as otherwise permitted by 42 CFR part 2. A general authorization for the release of medical or other information is NOT sufficient for this purpose. The Federal rules restrict any use of the information to criminally investigate or prosecute any alcohol or drug abuse patient.The records that you are about to access may contain highly sensitive health information, the redisclosure of which is protected by Article 27-F of the [place] Public Health law. If you continue you may have access to information: Regarding HIV / AIDS; Provided by facilities licensed or operated by the [place] [facility] Office of Mental Health; or Provided by the [place] [facility] Office for People With Developmental Disabilities. If such information is present, then the following [place] [facility] mandated warning applies: This information has been disclosed to you from confidential records which are protected by state law. State law prohibits you from making any further disclosure of this information without the specific written consent of the person to whom it pertains, or as otherwise permitted by law. Any unauthorized further disclosure in violation of state law may result in a fine or retirement sentence or both. A general authorization for the release of medical or other information is NOT sufficient authorization for further disc losure. Encounters Encounter Providers Location Date Indications Data Source(s ) TEMPMHCTelemed-Crisis Brief Attender: Anai [facility] 05/04/2020 09:40:00 AM EST - 05/04/2020 09:40:00 AM EST [facility] ([facility]) Attender: Anai Blood 05/04/2020 12:00:00 AM EST [facility] ([facility]) Outpatient Attender: Luci rojas 04/17/2020 02:10:00 PM EST [facility] ([facility]) Outpatient Attender: Judith godwin 04/14/2020 04:40:00 PM EST [facility] ([facility]) Attender: Anai Blood 04/09/2020 12:00:00 AM EST [facility] ([facility]) Brief Individual Psychotherapy - 30 min Attender: Anai [facility] 04/07/2020 07:30:00 AM EST - 04/07/2020 07:30:00 AM EST [facility] ([facility]) Extended Individual Psychotherapy - 45 min Attender: Anai Blood [facility] 03/29/2020 03:00:00 AM EST - 03/29/2020 03:00:00 AM EST [facility] ([facility]) Attender: Anai Blood 03/29/2020 12:00:00 AM EST [facility] ([facility]) Brief Individual Psychotherapy - 30 min Attender: Anai Pathak [facility] 03/24/2020 07:30:00 AM EST - 03/24/2020 07:30:00 AM EST [facility] ([facility]) Attender: Anai Bolod 03/24/2020 12:00:00 AM EST [facility] ([facility]) Brief Individual Psychotherapy - 30 min Attender: Anai Perry [facility] 03/08/2020 04:00:00 AM EST - 03/08/2020 04:00:00 AM EST [facility] ([facility]) Attender: Anai Blood 03/08/2020 12:00:00 AM EST [facility] ([facility]) Extended Individual Psychotherapy - 45 min Attender: Anai Blood [facility] 02/18/2020 03:00:00 AM EST - 02/18/2020 03:00:00 AM EST [facility] ([facility]) Attender: Anai Blood 02/18/2020 12:00:00 AM EST [facility] ([facility]) Attender: Anai Blood 02/06/2020 12:00:00 AM EDT [facility] ([facility]) Brief Individual Psychotherapy - 30 min Attender: Anai Lawson du [facility] 02/05/2020 04:00:00 AM EDT - 02/05/2020 04:00:00 AM EDT [facility] ([facility]) Attender: Anai Blood 02/05/2020 12:00:00 AM EDT [facility] ([facility]) Brief Individual Psychotherapy - 30 min Attender: Anai Lawson du [facility] 02/04/2020 07:00:00 AM EDT - 02/04/2020 07:00:00 AM EDT [facility] ([facility]) Attender: Anai Blood 01/22/2020 12:00:00 AM EDT [facility] ([facility]) Extended Individual Psychotherapy - 45 min Attender: Anai Blood [facility] 01/21/2020 01:45:00 AM EDT - 01/21/2020 01:45:00 AM EDT [facility] ([facility]) Attender: Anai Blood 01/06/2020 12:00:00 AM EDT [facility] ([facility]) Extended Individual Psychotherapy - 45 min Attender: Anai Blood [facility] 01/05/2020 02:00:00 AM EDT - 01/05/2020 02:00:00 AM EDT [facility] ([facility]) Psychiatric Diagnostic Evaluation (Non-Medical) Attender: Aamir Blood [facility] 12/17/2019 05:00:00 AM EDT - 12/17/2019 05:00:00 AM EDT [facility] ([facility]) Attender: Anai Blood 12/17/2019 12:00:00 AM EDT [facility] ([facility]) Outpatient Attender: Judith godwin 12/16/2019 11:15:00 AM EDT [facility] ([facility]) Outpatient Attender: MAK [facility] 12/03/2019 01:39:01 PM EDT [facility] Outpatient Attender: MAK [facility] 12/03/2019 01:38:01 PM EDT [facility] Outpatient Attender: MAK [facility] 09/09/2019 05:02:01 PM EDT [facility] Outpatient Attender: MAK [facility] 09/08/2019 10:57:00 AM EDT [facility] Outpatient Attender: MAK [facility] 09/08/2019 10:44:00 AM EDT [facility] Outpatient Attender: MAK [facility] 09/08/2019 10:44:00 AM EDT [facility] Outpatient Attender: MAK [facility] 09/08/2019 10:10:01 AM EDT [facility] Outpatient Attender: MAK [facility] 09/08/2019 10:08:01 AM EDT [facility] Outpatient Attender: MAK [facility] 09/08/2019 09:49:01 AM EDT [facility] Outpatient Attender: MAK [facility] 09/08/2019 09:48:00 AM EDT [facility] Outpatient Attender: MAK [facility] 09/08/2019 09:47:01 AM EDT [facility] Outpatient Attender: MAK [facility] 09/08/2019 09:17:00 AM EDT [facility] Outpatient Attender: Judith godwin 09/05/2019 05:05:00 PM EDT [facility] ([facility]) Medications Medication Brand Name Start Date Product Form Dose Route Admi nistrative Instructions Pharmacy Instructions Status Indications Reaction Description Data Source(s) Sulfamethoxazole 800 MG / Trimethoprim 160 MG Oral Tab let 800-160 mg SULFAMETHOXAZOLE/TRIMETHOPRIM 04/17/2020 12:00:00 AM EST tablet 14 TAKE ONE TABLET BY MOUTH TWICE A DAY TAKE ONE TABLET BY MOUTH TWICE A DAY SOLD: 04/17/2020 [facility] Sulfamethoxazole 800 MG / Trimethoprim 160 MG Oral Tab let Sulfamethoxazole/Trimethoprim DS 04/17/2020 12:00:00 AM EST ORAL active [facility] ([facility]) No Active Medications 04/14/2020 12:00:00 AM EST completed [facility] ([facility]) Cyclobenzaprine hydrochloride 5 MG Oral Tablet CYCLOBENZAPRI NE HCL 12/16/2019 12:00:00 AM EDT tablet 30 TAKE 1-2 TABLETS BY MOUTH THREE TIMES A DAY NEEDED FOR MUSCLE SPASMS TAKE 1-2 TABLETS BY MOUTH THREE TIMES A DAY NEEDED FOR MUSCLE SPASMS SOLD: 12/16/2019 [facility] Prednisone 20 MG Oral Tablet Prednisone 12/16/2019 12:00:00 AM EDT completed [facility] ([facility]) 20 mg 12/16/2019 12:00:00 AM EDT tablet 8 TAKE ONE TABLET BY MOUTH TWICE A DAY FOR 4 DAYS TAKE ONE TABLET BY MOUTH TWICE A DAY FOR 4 DAYS SOLD: 2019 [facility] Cyclobenzaprine hydrochloride 5 MG Oral Tablet Cyclobenzapri ne HCL 12/16/2019 12:00:00 AM EDT ORAL completed [facility] ([facility]) 300 mg 09/08/2019 12:00:00 AM EDT capsule 28 TAKE ONE CAPSULE BY MOUTH EVERY 6 HOURS WITH FOOD UNTIL GONE TAKE ONE CAPSULE BY MOUTH EVERY 6 HOURS WITH FOOD UNTIL GONE SOLD: 09/08/2019 [facility] Ibuprofen 800 MG Oral Tablet Ibuprofen 09/05/2019 12:00:00 AM EDT ORAL completed [facility] ([facility]) Amoxicillin 875 MG / Clavulanate 125 MG Oral Tablet Am oxicillin/Clavulanate Potassium 09/05/2019 12:00:00 AM EDT ORAL completed [facility] ([facility]) 800 mg 09/05/2019 12:00:00 AM EDT tablet 30 TAKE ONE TABLET BY MOUTH THREE TIMES A DAY NEEDED FOR PAIN TAKE ONE TABLET BY MOUTH THREE TIMES A D AY NEEDED FOR PAIN SOLD: 09/05/2019 [facility]-125 mg 09/05/2019 12:00:00 AM EDT tablet 20 TAKE ONE TABLET BY MOUTH TWICE A DAY FOR 10 DAYS TAKE ONE TABLET BY MOUTH TWICE A DAY FOR 10 DAYS SOLD: 09/05/2019 [facility] Insurance Providers Payer name Policy type / Coverage type Policy ID Covered libertarian ID Covered libertarian's relationship to carrion Policy [place] Plan Information [facility] [id number] SP [id number] [facility] [id number] SP [id number] EXCELLUS BCBS B [id number] S [id number] BCBS 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 [id number] SP [id number] Excell[employer] BCBS P [id number] S YNC [id number] D [employer] S [id number] S [id number] D Excellus BCBS Dental P [id number] S [id number] Self Pay P UNAVAILABLE S UNAVAILA BLE SELF PAY UNAVAILABLE S UNAVAILA BLE AMNA [id number] SP [id number] Problems, Conditions, and Diagnoses Code Display Name Description Problem Type Effective Dates Data Source(s) F33.9 Major depressive disorder, recurrent, un specified Major Depressive Disorder, Recurrent episode, Unspecified Condition 05/04/2020 12:00:00 AM EST [facility] ([facility]) 520.6 Clare teeth impaction Clare teeth impaction 09/08/2019 10:43:14 AM EDT [facility] Surgeries/Procedures Procedure Description Date Indications Data Source(s) TEMPMHCTelemed-Crisis Brief 05/04/2020 1 2:00:00 AM EST - 05/04/2020 12:00:00 AM EST [facility] ([facility]) TEMPMHCTelemed-Crisis Brief 05/04/2020 12:00:00 AM EST [facility] ([facility]) Brief Individual Psychotherapy - 30 min 04/09/2020 12:00:00 AM EST - 04/09/2020 12:00:00 AM EST [facility] ([facility]) Brief Individual Psychotherapy - 30 min 04/07/2020 12: 00:00 AM EST [facility] ([facility]) Extended Individual Psychotherapy - 45 min 03/29/2020 12:00:00 AM EST - 03/29/2020 12:00:00 AM EST [facility] ([facility]) Extended Individual Psychotherapy - 45 min 0 12:00:00 AM EST [facility] ([facility]) Brief Individual Psychotherapy - 30 min 03/24/2020 12:00:00 AM EST - 03/24/2020 12:00:00 AM EST [facility] ([facility]) Brief Individual Psychotherapy - 30 min 03/24/2020 12: 00:00 AM EST [facility] ([facility]) Brief Individual Psychotherapy - 30 min 03/08/2020 12:00:00 AM EST - 03/08/2020 12:00:00 AM EST [facility] ([facility]) Brief Individual Psychotherapy - 30 min 03/08/2020 12: 00:00 AM EST [facility] ([facility]) Extended Individual Psychotherapy - 45 min 02/18/2020 12:00:00 AM EST - 02/18/2020 12:00:00 AM EST [facility] ([facility]) Extended Individual Psychotherapy - 45 min 0 12:00:00 AM EST [facility] ([facility]) Brief Individual Psychotherapy - 30 min 02/06/2020 12:00:00 AM EDT - 02/06/2020 12:00:00 AM EDT [facility] ([facility]) Brief Individual Psychotherapy - 30 min 02/05/2020 12: 00:00 AM EDT [facility] ([facility]) Brief Individual Psychotherapy - 30 min 02/05/2020 12:00:00 AM EDT - 02/05/2020 12:00:00 AM EDT [facility] ([facility]) Brief Individual Psychotherapy - 30 min 02/04/2020 12: 00:00 AM EDT [facility] ([facility]) Extended Individual Psychotherapy - 45 min 01/22/2020 12:00:00 AM EDT - 01/22/2020 12:00:00 AM EDT [facility] ([facility]) Extended Individual Psychotherapy - 45 min 0 12:00:00 AM EDT [facility] ([facility]) Extended Individual Psychotherapy - 45 min 01/06/2020 12:00:00 AM EDT - 01/06/2020 12:00:00 AM EDT [facility] ([facility]) Extended Individual Psychotherapy - 45 min 0 12:00:00 AM EDT [facility] ([facility]) Psychiatric Diagnostic Evaluation (Non-Medical) 12/17/2019 12:00:00 AM EDT - 12/17/2019 12:00:00 AM EDT [facility] ([facility]) Psychiatric Diagnostic Evaluation (Non-Medical) 2019 12:00:00 AM EDT [facility] ([facility]) Results ID Date Data Source [id number] 09/08/2019 09:45:53 AM EDT [facility] Current Problems: Clare teeth impaction (ICD-520.6) (EBD90-N26.1)Current Medications: CLINDAMYCIN HCL 300 MG CAPS (CLINDAMYCIN HCL) 1 every 6 hours until finished; Route: ORAL Dental Chart: Procedures:Type - CDT Code - Description B - (D0330) Panoramic film (Performed by Garima Valdez DMD) B - (D1999) Unspecified preventive procedure, by report on Tooth # 1 (Performed by Garima Valdez DMD) B - (D0140) Limited oral evaluation - problem focused on Tooth # 1 (Performed by Garima Valdez DMD) C - (D1999) Unspecified preventive procedure, by report on Tooth # 1 (Performed by Garima Valdez DMD) Treatments:Type - CDT Code - Description T - (D7140) Extraction, erupted tooth or exposed root (elevation and/or forceps removal) on Tooth # 16 (Performed by Garima Valdez DMD) T - (D7140) Extraction, erupted tooth or exposed root (elevation and/or forceps removal) on Tooth # 32 (Performed by Garima Valdez DMD) T - (D7140) Extraction, erupted tooth or exposed root (elevation and/or forceps removal) on Tooth # 1 (Performed by Garima Valdez DMD) T - (D7140) Extraction, erupted tooth or exposed root (elevation and/or forceps removal) on Tooth # 17 (Performed by Garima Valdez DMD) Chart Notes:mak (Sep 08 2019 10:41AM): Additional PPE requirements due to COVID-19 in the dental setting, N95, surgical mask, hair covering, gown S: CC: "I had pain that started last week that was hurting on the top right side. It felt like I might have food stuck, but I did not see anything. I went to the urgent care on Sunday and they suggest it could be my wisdom tooth. They gave me Augmentin and Motrin and nothing is making it any better. It has been several years since I have seen a dentist."O: RMHx (-)per pt. no allergies and is taking the Augmentin and Motrin provided by Urgent Care. HPI:last week. PL:6. BP: 120/81. Panorex taken. Extra oral swelling present on the right side (according to Pt new swelling). Operculum present #1 with sensitivity to palpation. All other wisdom teeth impacted.A: DDS recommends to have all four wisdom teeth removed by OS. Advised to switch antibiotics as no change has been seen with previous antibiotics. Placed prescription to [facility] on [address] and advised pt. use use ice pack for discomfort. DX: wisdom teeth impaction. P:refer to OS.E-scribe Clindamycin 300mg q6h 28 quantity with zero refills. Informed Pt about new pain management policy of the clinic regarding about narcotic,told pt to alternate Ibuprophen 600- 800mg and tylenol 500mg every 4 to 6 hrs for pain when neededAssisted By:AMNV: new p/e.Garima Valdez DMD by mak (09/08/2019 10:41 AM): Tooth Notes and Watches: Note: There are Un- Billed (C Type) procedures on this document.Assessment & Plan Problems:Added: Clare teeth impaction (ICD-520.6) (NZU04-J09.1)Medications:CLINDAMYCIN HCL 300 MG CAPSMedication Changes:New Prescription:CLINDAMYCIN HCL 300 MG CAPS-1 every 6 hours until finished Qty: 28[Capsule] Refills: 0 Method: ElectronicAllergies:No Known Allergies (updated 09/08/2019) Orders:Oral Surgery Referral [[id number]] Name Value Range Interpretation Code Description Data Jonelle rce(s) Supporting Document(s) Procedure Social History Code Duration Value Status Description Data Source(s ) Smoking 05/04/2020 12:00:00 AM EST Unknown if ever smoked comp leted Unknown if ever smoked [facility] ([facility]) Smoking 04/17/2020 12:00:00 AM EST Patient has never smoked co mpleted Patient has never smoked [facility] ([facility]) Smoking 04/09/2020 12:00:00 AM EST Unknown if ever smoked comp leted Unknown if ever smoked [facility] ([facility]) Smoking 03/29/2020 12:00:00 AM EST Unknown if ever smoked comp leted Unknown if ever smoked [facility] ([facility]) Smoking 03/24/2020 12:00:00 AM EST Unknown if ever smoked comp leted Unknown if ever smoked [facility] ([facility]) Smoking 03/08/2020 12:00:00 AM EST Unknown if ever smoked comp leted Unknown if ever smoked [facility] ([facility]) Smoking 02/18/2020 12:00:00 AM EST Unknown if ever smoked comp leted Unknown if ever smoked [facility] ([facility]) Smoking 02/06/2020 12:00:00 AM EDT Unknown if ever smoked comp leted Unknown if ever smoked [facility] ([facility]) Smoking 02/05/2020 12:00:00 AM EDT Unknown if ever smoked comp leted Unknown if ever smoked [facility] ([facility]) Smoking 01/22/2020 12:00:00 AM EDT Unknown if ever smoked comp leted Unknown if ever smoked [facility] ([facility]) Smoking 01/06/2020 12:00:00 AM EDT Unknown if ever smoked comp leted Unknown if ever smoked [facility] ([facility] Smoking 12/17/2019 12:00:00 AM EDT Unknown if ever smoked comp leted Unknown if ever smoked [facility] ([facility]) Vital Signs ID Date Data Source UNK Name Value Range Interpretation Code Description Data Source(s) Body weight 160.00 [lb_av] 160.00 [lb_av] [facility] ([facility]) Body temperature 98.0 [degF] 98.0 [degF] [facility] ([facility]) Oxygen saturation in Arterial blood by Pulse oximetry 97 % 97 % [facility] Respiratory rate 18 /min 18 /min [facility] ( [facility]) Heart rate 92 /min 92 /min [facility]) Diastolic blood pressure 85 mm[Hg] 85 mm[Hg] [facility] ([facility]) Systolic blood pressure 128 mm[Hg] 128 mm[Hg] [facility] ([facility]) Body mass index (BMI) [Ratio] 26.6 kg/m2 26.6 k g/m2 [facility] ([facility]) Body height 67 [in_i] 67 [in_i] [facility] ([facility] 5'7" Body weight 170.00 [lb_av] 170.00 [lb_av] [facility] ([facility]) Body temperature 98.0 [degF] 98.0 [degF] [facility] Oxygen saturation in Arterial blood by Pulse oximetry 98 % 98 % [facility] ([facility]) Respiratory rate 15 /min 15 /min [facility]) Heart rate 83 /min 83 /min [facility] ([facility], [facility]) Diastolic blood pressure 78 mm[Hg] 78 mm[Hg] [facility] ([facility]) Systolic blood pressure 114 mm[Hg] 114 mm[Hg] [facility] Body mass index (BMI) [Ratio] 26.9 kg/m2 26.9 k g/m2 [facility] ([facility]) Body height 67 [in_i] 67 [in_i] [facility] ([facility]) 5'7" Body weight 172.00 [lb_av] 172.00 [lb_av] [facility] ([facility]) Body temperature 98.5 [degF] 98.5 [degF] [facility] ([facility]) Oxygen saturation in Arterial blood by Pulse oximetry 99 % 99 % [facility] ([facility]) Heart rate 81 /min 81 /min [facility] ([facility]) Diastolic blood pressure 76 mm[Hg] 76 mm[Hg] [facility] ([facility]) Systolic blood pressure 112 mm[Hg] 112 mm[Hg] [facility] ([facility]) Body mass index (BMI) [Ratio] 26.3 kg/m2 26.3 k g/m2 [facility] ([facility]) Body height 67 [in_i] 67 [in_i] [facility] ([facility]) 5'7" Body weight 168.00 [lb_av] 168.00 [lb_av] [facility] ([facility], [facility]) Body temperature 98.6 [degF] 98.6 [degF] [facility] ([facility]) Oxygen saturation in Arterial blood by Pulse oximetry 98 % 98 % [facility] ([facility]) Respiratory rate 17 /min 17 /min [facility] ( [facility]) Heart rate 73 /min 73 /min [facility] ([facility]) Diastolic blood pressure 84 mm[Hg] 84 mm[Hg] [facility] ([facility]) Systolic blood pressure 119 mm[Hg] 119 mm[Hg] [facility])
--- OUTSIDE RECORDS SUMMARY | 2020-05-05 04:32 | CCD ---
Author Author Aime lBood Organization Unknown Address [address] [place] [address] Phone Care Team Providers Care Custom Studio Coordinator Name Role Phone Anai Blood PCP Allergies, Adverse Reactions, Alerts No Data in Section Problem List Concept Problem Description Status Start Date Created Date Resolv ed Date Snomed Code F33.9 Major Depressive Disorder, Recurrent episode, Unspecif ied Active 02/19/2020 Medications No Data in Section Social History Social History Element Description Concept Effective Date Smoking Status Unknown if ever smoked [id number] Immunizations No Data in Section Vital Signs No Data in Section Procedures Date Concept Id Description Targeted Site Concept Targeted Site Concept Type 02/18/2020 26905 Extended Individual Psychotherapy - 45 min CPT Patient has no history of implantable de vices Encounters Encounter Start Date End Date Encounter Type Description Diagnosis Di agnosis Desc Location Author First Name Author Last Name Npid Taxonomy Cod e Taxonomy Desc Phone Number Location Addr1 Location Addr2 Location [facility] Location [facility] Location [facility] [id number] 02/18/2020 02/18/2020 83376 Extended Individual Psych otherapy - 45 min F33.9 Major depressive disorder, recurrent, unspecified Comm [facility] Jeremi Ospina [phone] [id number] Camouflage Specialist [id number] [address] [place] [address] [place] [id number] Plan of Treatment No Data in Section Lab Results No Data in Section Instructions No Data in Section Insurance Providers Insurance Id Policy Effective Date Policy Thru Date Company N warren [id number] 2019 JASIEL[employer]
--- OUTSIDE RECORDS SUMMARY | 2020-05-05 04:32 | CCD ---
Author Author Aime Blood Organization Unknown Address [address] [place] [address] Phone Care Team Providers Care Clinical Safety Manager Name Role Phone Anai Blood PCP Allergies, Adverse Reactions, Alerts No Data in Section Problem List Concept Problem Description Status Start Date Created Date Resolv ed Date Snomed Code F33.9 Major Depressive Disorder, Recurrent episode, Unspecif ied Active 02/05/2020 Medications No Data in Section Social History Social History Element Description Concept Effective Date Smoking Status Unknown if ever smoked [id number] Immunizations No Data in Section Vital Signs No Data in Section Procedures Date Concept Id Description Targeted Site Concept Targeted Site Concept Type 02/04/2020 01861 Brief Individual Psychotherapy - 30 min CPT Patient has no history of implantable de vices Encounters Encounter Start Date End Date Encounter Type Description Diagnosis Di agnosis Desc Location Author First Name Author Last Name Npid Taxonomy Cod e Taxonomy Desc Phone Number Location Addr1 Location Addr2 Location [facility] Location [facility] Location [facility] [id number] 02/04/2020 02/04/2020 79518 Brief Individual Psychoth erapy - 30 min F33.9 Major depressive disorder, recurrent, unspecified Comm [facility] Jeremi Ospina [id number] Undercoat Sprayer [phone] [address] [facility] [address] [facility] [address] Plan of Treatment No Data in Section Lab Results No Data in Section Instructions No Data in Section Insurance Providers Insurance Id Policy Effective Date Policy Thru Date Company N warren [id number] 2019 [employer]
[2020-05-05] MEDS ORDERED: LORazepam 2 MG/ML VIAL IM STA (05:02)
--- OUTSIDE RECORDS SUMMARY | 2020-05-05 05:27 | CCD ---
Author Author [facility] Organization [facility] Address Unknown Phone Unavailable Care Team Providers Care Vibrator Operator Name Role Phone MERRICK, BERTA Unavailable Unavailable Anai Blood Unavailable Tellez, Judith DISTRICT ADVISER Unavailable Unavailable Tellez, Judith DISTRICT ADVISER Unavailable Unavailable Tellez, Judith DISTRICT ADVISER Unavailable Unavailable Tellez, Judith DISTRICT ADVISER Unavailable Unavailable Tellez, Judith DISTRICT ADVISER Unavailable Unavailable Tellez, Judith DISTRICT ADVISER Unavailable Unavailable Tellez, Judith DISTRICT ADVISER Unavailable Unavailable Tellez, Judith DISTRICT ADVISER Unavailable Unavailable Tellez, Judith DISTRICT ADVISER Unavailable Unavailable Tellez, Judith DISTRICT ADVISER Unavailable Unavailable Tellez, Judith DISTRICT ADVISER Unavailable Unavailable Simran Betancur Unavailable Unavailable Simran [...] is protected by Article 27-F of the [facility] Public Health law. If you continue you may have access to information: Regarding HIV / AIDS; Provided by facilities licensed or operated by the [facility] Office of Mental Health; or Provided by the [facility] Office for People With Developmental Disabilities. If such information is present, then the following [facility] mandated warning applies: This information has been [...] law may result in a fine or fdc sentence or both. A general authorization for the release of medical or other information is NOT sufficient authorization for further disc losure. Encounters Encounter Providers Location Date Indications Data Source(s ) TEMPMHCTelemed-Crisis Brief Attender: Anai jackson [facility] 05/04/2020 09:40:00 AM EST - 05/04/2020 09:40:00 AM EST [facility] ([facility]) Attender: Anai Blood 05/04/2020 12:00:00 AM EST [facility] ([facility]) Outpatient Attender: Luci rojas 04/17/2020 02:10:00 PM EST [facility] ([facility]) Outpatient Attender: Judith godwin 04/14/2020 04:40:00 PM EST [facility] ([facility]) Attender: Anai Blood 04/09/2020 12:00:00 AM EST [facility] ([facility]) Brief Individual Psychotherapy - 30 min Attender: Anai [facility] 04/07/2020 07:30:00 AM EST - 04/07/2020 07:30:00 AM EST [facility] ([facility]) Extended Individual Psychotherapy - 45 min Attender: Anai Blood [facility] 03/29/2020 03:00:00 AM EST - 03/29/2020 03:00:00 AM EST [facility] ([facility]) Attender: Anai Blood 03/29/2020 12:00:00 AM EST [facility] ([facility]) Brief Individual Psychotherapy - 30 min Attender: Anai Pathak [facility] 03/24/2020 07:30:00 AM EST - 03/24/2020 07:30:00 AM EST [facility] ([facility]) Attender: Anai Blood 03/24/2020 12:00:00 AM EST [facility] ([facility]) Brief Individual Psychotherapy - 30 min Attender: Anai Clinton [facility] 03/08/2020 04:00:00 AM EST - 03/08/2020 04:00:00 AM EST [facility] ([facility]) Attender: Anai Blood 03/08/2020 12:00:00 AM EST [facility] ([facility]) Extended Individual Psychotherapy - 45 min Attender: Anai Blood [facility] 02/18/2020 03:00:00 AM EST - 02/18/2020 03:00:00 AM EST [facility] ([facility]) Attender: Anai Blood 02/18/2020 12:00:00 AM EST [facility] ([facility]) Attender: Anai Blood 02/06/2020 12:00:00 AM EDT [facility] ([facility]) Brief Individual Psychotherapy - 30 min Attender: Anai Lawson [facility] 02/05/2020 04:00:00 AM EDT - 02/05/2020 04:00:00 AM EDT [facility] ([facility]) Attender: Anai Blood 02/05/2020 12:00:00 AM EDT [facility] ([facility]) Brief Individual Psychotherapy - 30 min Attender: Anai Lawson du [facility] 02/04/2020 07:00:00 AM EDT - 02/04/2020 07:00:00 AM EDT [facility] ([facility]) Attender: Anai Blood 01/22/2020 12:00:00 AM EDT [facility] ([facility]) Extended Individual Psychotherapy - 45 min Attender: Anai Blood [facility] 01/21/2020 01:45:00 AM EDT - 01/21/2020 01:45:00 AM EDT [facility] ([facility]) Attender: Anai Blood 01/06/2020 12:00:00 AM EDT [facility] ([facility]) Extended Individual Psychotherapy - 45 min Attender: Anai Blood [facility] 01/05/2020 02:00:00 AM EDT - 01/05/2020 02:00:00 AM EDT [facility] ([facility]) Psychiatric Diagnostic Evaluation (Non-Medical) Attender: Aamir Blood [facility] 12/17/2019 05:00:00 AM EDT - 12/17/2019 05:00:00 AM EDT [facility] ([facility]) Attender: Anai Blood 12/17/2019 12:00:00 AM EDT [facility] ([facility]) Outpatient Attender: Judith godwin 12/16/2019 11:15:00 AM EDT [facility] ([facility]) Outpatient Attender: [facility]K [facility] 12/03/2019 01:39:01 PM EDT [facility] Outpatient Attender: MAK [facility] 12/03/2019 01:38:01 PM EDT [facility] Outpatient Attender: MAK [facility] 09/09/2019 05:02:01 PM EDT [facility] Outpatient Attender: MAK [facility] 09/08/2019 10:57:00 AM EDT [facility] Outpatient Attender: MAK [facility] 09/08/2019 10:44:00 AM EDT [facility] Outpatient Attender: MAK [facility] 09/08/2019 10:44:00 AM EDT [facility] Outpatient Attender: MAK [facility] 09/08/2019 10:10:01 AM EDT [facility] Outpatient Attender: MAK [facility] 09/08/2019 10:08:01 AM EDT [facility] Outpatient Attender: MAK [facility] 09/08/2019 09:49:01 AM EDT [facility] Outpatient Attender: MAK [facility] 09/08/2019 09:48:00 AM EDT [facility] Outpatient Attender: MAK [facility] 09/08/2019 09:47:01 AM EDT [facility] Outpatient Attender: MAK [facility] 09/08/2019 09:17:00 AM EDT [facility] Outpatient Attender: Judith godwin 09/05/2019 05:05:00 PM EDT [facility] ([facility]) Medications Medication Brand [...] 04/17/2020 12:00:00 AM EST ORAL active [facility] ([facility]) No Active Medications 04/14/2020 12:00:00 AM EST completed [facility] ([facility]) Cyclobenzaprine hydrochloride 5 MG Oral Tablet CYCLOBENZAPRI NE HCL 12/16/2019 12:00:00 AM EDT tablet 30 TAKE 1-2 TABLETS BY MOUTH THREE TIMES A DAY NEEDED FOR MUSCLE SPASMS TAKE 1-2 TABLETS BY MOUTH THREE TIMES A DAY NEEDED FOR MUSCLE SPASMS SOLD: 12/16/2019 [facility] Prednisone 20 MG Oral Tablet Prednisone 12/16/2019 12:00:00 AM EDT completed [facility] ([facility]) 20 mg 12/16/2019 12:00:00 AM EDT tablet 8 TAKE ONE TABLET BY MOUTH TWICE A DAY FOR 4 DAYS TAKE ONE TABLET BY MOUTH TWICE A DAY FOR 4 DAYS SOLD: 2019 [facility] Cyclobenzaprine hydrochloride 5 MG Oral Tablet Cyclobenzapri ne HCL 12/16/2019 12:00:00 AM EDT ORAL completed [facility] ([facility]) 300 mg 09/08/2019 12:00:00 AM EDT capsule 28 TAKE ONE CAPSULE BY MOUTH EVERY 6 HOURS WITH FOOD UNTIL GONE TAKE ONE CAPSULE BY MOUTH EVERY 6 HOURS WITH FOOD UNTIL GONE SOLD: 09/08/2019 [facility] Ibuprofen 800 MG Oral Tablet Ibuprofen 09/05/2019 12:00:00 AM EDT ORAL completed [facility] ([facility]) Amoxicillin 875 MG / Clavulanate 125 MG Oral Tablet Am oxicillin/Clavulanate Potassium 09/05/2019 12:00:00 AM EDT ORAL completed [facility] ([facility]) 800 mg 09/05/2019 12:00:00 AM EDT tablet [...] type / Coverage type Policy ID Covered republican ID Covered republican's relationship to carrion Policy [place] Plan Information [facility] [id number] SP [id number] [facility] [id number] SP [id number] EXCELLUS BCBS B [id number] S [id number] BCBS 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 [id number] SP [id number] Excell[employer] BCBS P [id number] S [id number] D [facility] S [id number] S [id number] D Excellus BCBS Dental P [id number] S [id number] Self Pay P UNAVAILABLE S UNAVAILA BLE SELF PAY UNAVAILABLE S UNAVAILA BLE AMNA [id number] SP [id number] Problems, Conditions, and Diagnoses Code Display Name Description Problem Type Effective Dates Data Source(s) F33.9 Major depressive disorder, recurrent, un specified Major Depressive Disorder, Recurrent episode, Unspecified Condition 05/04/2020 12:00:00 AM EST [facility] ([facility]) 520.6 [place] teeth impaction [place] teeth impaction 09/08/2019 10:43:14 AM EDT [facility] Surgeries/Procedures Procedure Description Date Indications Data Source(s) TEMPMHCTelemed-Crisis Brief 05/04/2020 1 2:00:00 AM EST - 05/04/2020 12:00:00 AM EST [facility] ([facility]) TEMPMHCTelemed-Crisis Brief 05/04/2020 12:00:00 AM EST [facility] ([facility]) Brief Individual Psychotherapy - 30 min 04/09/2020 12:00:00 AM EST - 04/09/2020 12:00:00 AM EST [facility] ([facility]) Brief Individual Psychotherapy - 30 min 04/07/2020 12: 00:00 AM EST [facility] ([facility]) Extended Individual Psychotherapy - 45 min 03/29/2020 12:00:00 AM EST - 03/29/2020 12:00:00 AM EST [facility] ([facility]) Extended Individual Psychotherapy - 45 min 0 12:00:00 AM EST [facility] ([facility]) Brief Individual Psychotherapy - 30 min 03/24/2020 12:00:00 AM EST - 03/24/2020 12:00:00 AM EST [facility] ([facility]) Brief Individual Psychotherapy - 30 min 03/24/2020 12: 00:00 AM EST [facility] ([facility]) Brief Individual Psychotherapy - 30 min 03/08/2020 12:00:00 AM EST - 03/08/2020 12:00:00 AM EST [facility] ([facility]) Brief Individual Psychotherapy - 30 min 03/08/2020 12: 00:00 AM EST [facility] ([facility]) Extended Individual Psychotherapy - 45 min 02/18/2020 12:00:00 AM EST - 02/18/2020 12:00:00 AM EST [facility] ([facility]) Extended Individual Psychotherapy - 45 min 0 12:00:00 AM EST [facility] ([facility]) Brief Individual Psychotherapy - 30 min 02/06/2020 12:00:00 AM EDT - 02/06/2020 12:00:00 AM EDT [facility] ([facility]) Brief Individual Psychotherapy - 30 min 02/05/2020 12: 00:00 AM EDT [facility] ([facility]) Brief Individual Psychotherapy - 30 min 02/05/2020 12:00:00 AM EDT - 02/05/2020 12:00:00 AM EDT [facility] ([facility]) Brief Individual Psychotherapy - 30 min 02/04/2020 12: 00:00 AM EDT [facility] ([facility]) Extended Individual Psychotherapy - 45 min 01/22/2020 12:00:00 AM EDT - 01/22/2020 12:00:00 AM EDT [facility] ([facility]) Extended Individual Psychotherapy - 45 min 0 12:00:00 AM EDT [facility] ([facility]) Extended Individual Psychotherapy - 45 min 01/06/2020 12:00:00 AM EDT - 01/06/2020 12:00:00 AM EDT [facility] ([facility]) Extended Individual Psychotherapy - 45 min 0 12:00:00 AM EDT [facility] ([facility]) Psychiatric Diagnostic Evaluation (Non-Medical) 12/17/2019 12:00:00 AM EDT - 12/17/2019 12:00:00 AM EDT [facility] ([facility]) Psychiatric Diagnostic Evaluation (Non-Medical) 2019 12:00:00 AM EDT [facility] ([facility]) Results ID Date Data Source [id number] 09/08/2019 09:45:53 AM EDT [facility] Current Problems: [place] teeth impaction (ICD-520.6) (FSS60-V41.1)Current Medications: CLINDAMYCIN HCL 300 MG CAPS (CLINDAMYCIN [...] previous antibiotics. Placed prescription to [facility] on [address] and advised pt. use use ice [...] procedures on this document.Assessment & Plan Problems:Added: [place] teeth impaction (ICD-520.6) (ORW85-N47.1)Medications:CLINDAMYCIN HCL 300 MG CAPSMedication Changes:New Prescription:CLINDAMYCIN HCL 300 MG CAPS-1 every 6 hours until finished Qty: 28[Capsule] Refills: 0 Method: ElectronicAllergies:No Known Allergies (updated 09/08/2019) Orders:Oral Surgery Referral [[id number]] Name Value Range Interpretation Code Description Data Jonelle rce(s) Supporting Document(s) Procedure Social History Code Duration Value Status Description Data Source(s ) Smoking 05/04/2020 12:00:00 AM EST Unknown if ever smoked comp leted Unknown if ever smoked [facility] ([facility]) Smoking 04/17/2020 12:00:00 AM EST Patient has never smoked co mpleted Patient has never smoked [facility] ([facility]) Smoking 04/09/2020 12:00:00 AM EST Unknown if ever smoked comp leted Unknown if ever smoked [facility] ([facility]) Smoking 03/29/2020 12:00:00 AM EST Unknown if ever smoked comp leted Unknown if ever smoked [facility] ([facility]) Smoking 03/24/2020 12:00:00 AM EST Unknown if ever smoked comp leted Unknown if ever smoked [facility] ([facility]) Smoking 03/08/2020 12:00:00 AM EST Unknown if ever smoked comp leted Unknown if ever smoked [facility] ([facility]) Smoking 02/18/2020 12:00:00 AM EST Unknown if ever smoked comp leted Unknown if ever smoked [facility] ([facility]) Smoking 02/06/2020 12:00:00 AM EDT Unknown if ever smoked comp leted Unknown if ever smoked [facility] ([facility]) Smoking 02/05/2020 12:00:00 AM EDT Unknown if ever smoked comp leted Unknown if ever smoked [facility] ([facility]) Smoking 01/22/2020 12:00:00 AM EDT Unknown if ever smoked comp leted Unknown if ever smoked [facility] ([facility]) Smoking 01/06/2020 12:00:00 AM EDT Unknown if ever smoked comp leted Unknown if ever smoked [facility] ([facility]) Smoking 12/17/2019 12:00:00 AM EDT Unknown if ever smoked comp leted Unknown if ever smoked [facility] ([facility]) Vital Signs ID Date Data Source UNK Name Value Range Interpretation Code Description Data Source(s) Body weight 160.00 [lb_av] 160.00 [lb_av] [facility] ([facility]) Body temperature 98.0 [degF] 98.0 [degF] [facility] ([facility]) Oxygen saturation in Arterial blood by Pulse oximetry 97 % 97 % [facility] Respiratory rate 18 /min 18 /min [facility] ( [facility], [facility]) Heart rate 92 /min 92 /min [facility] ([facility]) Diastolic blood pressure 85 mm[Hg] 85 mm[Hg] [facility] ([facility]) Systolic blood pressure 128 mm[Hg] 128 mm[Hg] [facility] ([facility]) Body mass index (BMI) [Ratio] 26.6 kg/m2 26.6 k g/m2 [facility] ([facility], [facility]) Body height 67 [in_i] 67 [in_i] [facility] ([facility]) 5'7" Body weight 170.00 [lb_av] 170.00 [lb_av] [facility] ([facility]) Body temperature 98.0 [degF] 98.0 [degF] [facility] ([facility]) Oxygen saturation in Arterial blood by Pulse oximetry 98 % 98 % [facility] ([facility], [facility]) Respiratory rate 15 /min 15 /min [facility] ( [facility]) Heart rate 83 /min 83 /min [facility] ([facility], [facility]) Diastolic blood pressure 78 mm[Hg] 78 mm[Hg] [facility] ([facility]) Systolic blood pressure 114 mm[Hg] 114 mm[Hg] [facility] ([facility]) Body mass index (BMI) [Ratio] 26.9 kg/m2 26.9 k g/m2 [facility] ([facility], [facility]) Body height 67 [in_i] 67 [in_i] [facility] ([facility], [facility]) 5'7" Body weight 172.00 [lb_av] 172.00 [lb_av] [facility] ([facility], [facility]) Body temperature 98.5 [degF] 98.5 [degF] [facility] ([facility], [facility]) Oxygen saturation in Arterial blood by Pulse oximetry 99 % 99 % [facility] ([facility], [facility]) Heart rate 81 /min 81 /min [facility] ([facility], [facility]) Diastolic blood pressure 76 mm[Hg] 76 mm[Hg] [facility] ([facility], [facility]) Systolic blood pressure 112 mm[Hg] 112 mm[Hg] [facility] ([facility], [facility]) Body mass index (BMI) [Ratio] 26.3 kg/m2 26.3 k g/m2 [facility] ([facility], [facility]) Body height 67 [in_i] 67 [in_i] [facility] ([facility], [facility]) 5'7" Body weight 168.00 [lb_av] 168.00 [lb_av] [facility] ([facility], [facility]) Body temperature 98.6 [degF] 98.6 [degF] [facility] ([facility], [facility]) Oxygen saturation in Arterial blood by Pulse oximetry 98 % 98 % [facility] ([facility], [facility]) Respiratory rate 17 /min 17 /min [facility] ( [facility], [facility]) Heart rate 73 /min 73 /min [facility] ([facility], [facility]) Diastolic blood pressure 84 mm[Hg] 84 mm[Hg] [facility] ([facility], [facility]) Systolic blood pressure 119 mm[Hg] 119 mm[Hg] [facility] ([facility], [facility])
[2020-05-05] MEDS ORDERED: ATIV2TAB PO (06:04)
== END 2020-05-05 06:43 | disposition home or self-care (01) ==
LOC: M ED 04:26
DX: O99.340 Other mental disorders complicating pregnancy, unspecified trimester (principal); F41.0 Panic disorder [episodic paroxysmal anxiety]; Z79.899 Other long term (current) drug therapy; Z3A.00 Weeks of gestation of pregnancy not specified
CPT/HCPCS: 96372; 99284; J2060

== ENCOUNTER 2020-05-06 12:56 | Emergency (ER) | payer BC ==
[~2020-05-06] VITALS: Ht 170.2 cm; Wt 78.9 kg
[~2020-05-06 12:56] MED LIST changes: +ATIV2TAB PO
[2020-05-06 12:57] VITALS: BP 124/73
--- OUTSIDE RECORDS SUMMARY | 2020-05-06 13:14 | CCD ---
Author Author [facility] Organization [facility] Address Unknown Phone Unavailable Care Team Providers Care Film Cleaner Name Role Phone MERRICK, BERTA Unavailable Unavailable Anai Blood Unavailable Tellez, Judith WELL REACTIVATOR OPERATOR Unavailable Unavailable Tellez, Judith WELL REACTIVATOR OPERATOR Unavailable Unavailable Tellez, Judith WELL REACTIVATOR OPERATOR Unavailable Unavailable Tellez, Judith WELL REACTIVATOR OPERATOR Unavailable Unavailable Tellez, Judith WELL REACTIVATOR OPERATOR Unavailable Unavailable Tellez, Judith WELL REACTIVATOR OPERATOR Unavailable Unavailable Tellez, Judith WELL REACTIVATOR OPERATOR Unavailable Unavailable Tellez, Judith WELL REACTIVATOR OPERATOR Unavailable Unavailable Tellez, Judith WELL REACTIVATOR OPERATOR Unavailable Unavailable Tellez, Judith WELL REACTIVATOR OPERATOR Unavailable Unavailable Tellez, Judith WELL REACTIVATOR OPERATOR Unavailable Unavailable Simran Betancur Unavailable Unavailable Simran [...] is protected by Article 27-F of the [facility] Public Health law. If you continue you may have access to information: Regarding HIV / AIDS; Provided by facilities licensed or operated by the [facility] Office of Mental Health; or Provided by the [facility] Office for People With Developmental Disabilities. If such information is present, then the following [facility] mandated warning applies: This information has [...] law may result in a fine or longterm sentence or both. A general authorization for the release of medical or other information is NOT sufficient authorization for further disc losure. Encounters Encounter Providers Location Date Indications Data Source(s ) TEMPMHCTelemed-Crisis Brief Attender: Anai jackson [facility] 05/04/2020 09:40:00 AM EST - 05/04/2020 09:40:00 AM EST [facility] ([facility]) Attender: Anai Blood 05/04/2020 12:00:00 AM EST [facility] ([facility]) Outpatient Attender: Luci rojas 04/17/2020 02:10:00 PM EST [facility] ([facility]) Outpatient Attender: Judith godwin 04/14/2020 04:40:00 PM EST [facility] ([facility]) Attender: Anai Blood 04/09/2020 12:00:00 AM EST [facility] ([facility]) Brief Individual Psychotherapy - 30 min Attender: Anai [facility] 04/07/2020 07:30:00 AM EST - 04/07/2020 07:30:00 AM EST [facility] ([facility]) Extended Individual Psychotherapy - 45 min Attender: Anai Blood [facility] 03/29/2020 03:00:00 AM EST - 03/29/2020 03:00:00 AM EST [facility] ([facility]) Attender: Anai Blood 03/29/2020 12:00:00 AM EST [facility] ([facility]) Brief Individual Psychotherapy - 30 min Attender: Anai Pathak [facility] 03/24/2020 07:30:00 AM EST - 03/24/2020 07:30:00 AM EST [facility] ([facility]) Attender: Anai Blood 03/24/2020 12:00:00 AM EST [facility] ([facility]) Brief Individual Psychotherapy - 30 min Attender: Anai [place] [facility] 03/08/2020 04:00:00 AM EST - 03/08/2020 04:00:00 AM EST [facility] ([facility]) Attender: Anai Blood 03/08/2020 12:00:00 AM EST [facility] ([facility]) Extended Individual Psychotherapy - 45 min Attender: Anai Blood [facility] 02/18/2020 03:00:00 AM EST - 02/18/2020 03:00:00 AM EST [facility] ([facility]) Attender: Anai Blood 02/18/2020 12:00:00 AM EST [facility] ([facility]) Attender: Anai Blood 02/06/2020 12:00:00 AM EDT [facility] ([facility]) Brief Individual Psychotherapy - 30 min Attender: Anai Lawson du [facility] 02/05/2020 04:00:00 AM EDT - 02/05/2020 04:00:00 AM EDT [facility] ([facility]) Attender: Anai Blood 02/05/2020 12:00:00 AM EDT [facility] ([facility]) Brief Individual Psychotherapy - 30 min Attender: Anai Lawson du [facility] 02/04/2020 07:00:00 AM EDT - 02/04/2020 07:00:00 AM EDT [facility] ([facility]) Attender: Anai Blood 01/22/2020 12:00:00 AM EDT [facility] ([facility]) Extended Individual Psychotherapy - 45 min Attender: Anai Blood [facility] 01/21/2020 01:45:00 AM EDT - 01/21/2020 01:45:00 AM EDT [facility] ([facility]) Attender: Anai Blood 01/06/2020 12:00:00 AM EDT [facility] ([facility]) Extended Individual Psychotherapy - 45 min Attender: Anai Blood [facility] 01/05/2020 02:00:00 AM EDT - 01/05/2020 02:00:00 AM EDT [facility] ([facility]) Psychiatric Diagnostic Evaluation (Non-Medical) Attender: Aamri Blood [facility] 12/17/2019 05:00:00 AM EDT - 12/17/2019 05:00:00 AM EDT [facility] ([facility]) Attender: Anai Blood 12/17/2019 12:00:00 AM EDT [facility] ([facility]) Outpatient Attender: Judith godwin 12/16/2019 11:15:00 AM EDT [facility] ([facility]) Outpatient Attender: MAK [facility] 12/03/2019 01:39:01 PM EDT [facility] Outpatient Attender: MAK [facility] 12/03/2019 01:38:01 PM EDT [facility] Outpatient Attender: MAK [facility] 09/09/2019 05:02:01 PM EDT [facility] Outpatient Attender: MAK [facility] 09/08/2019 10:57:00 AM EDT [facility] Outpatient Attender: MAK [facility] 09/08/2019 10:44:00 AM EDT [facility] Outpatient Attender: MAK [facility] 09/08/2019 10:44:00 AM EDT [facility] Outpatient Attender: MAK [facility] 09/08/2019 10:10:01 AM EDT [facility] Outpatient Attender: MAK [facility] 09/08/2019 10:08:01 AM EDT [facility] Outpatient Attender: MAK [facility] 09/08/2019 09:49:01 AM EDT [facility] Outpatient Attender: MAK [facility] 09/08/2019 09:48:00 AM EDT [facility] Outpatient Attender: MAK [facility] 09/08/2019 09:47:01 AM EDT [facility] Outpatient Attender: MAK [facility] 09/08/2019 09:17:00 AM EDT [facility] Outpatient Attender: Judith godwin 09/05/2019 05:05:00 PM EDT [facility] ([facility]) Medications Medication Brand [...] 04/17/2020 12:00:00 AM EST ORAL active [facility] ([facility]) No Active Medications 04/14/2020 12:00:00 AM EST completed [facility] ([facility]) Cyclobenzaprine hydrochloride 5 MG Oral Tablet CYCLOBENZAPRI NE HCL 12/16/2019 12:00:00 AM EDT tablet 30 TAKE 1-2 TABLETS BY MOUTH THREE TIMES A DAY NEEDED FOR MUSCLE SPASMS TAKE 1-2 TABLETS BY MOUTH THREE TIMES A DAY NEEDED FOR MUSCLE SPASMS SOLD: 12/16/2019 [facility] Prednisone 20 MG Oral Tablet Prednisone 12/16/2019 12:00:00 AM EDT completed [facility] ([facility]) 20 mg 12/16/2019 12:00:00 AM EDT tablet 8 TAKE ONE TABLET BY MOUTH TWICE A DAY FOR 4 DAYS TAKE ONE TABLET BY MOUTH TWICE A DAY FOR 4 DAYS SOLD: 2019 [facility] Cyclobenzaprine hydrochloride 5 MG Oral Tablet Cyclobenzapri ne HCL 12/16/2019 12:00:00 AM EDT ORAL completed [facility] ([facility]) 300 mg 09/08/2019 12:00:00 AM EDT capsule 28 TAKE ONE CAPSULE BY MOUTH EVERY 6 HOURS WITH FOOD UNTIL GONE TAKE ONE CAPSULE BY MOUTH EVERY 6 HOURS WITH FOOD UNTIL GONE SOLD: 09/08/2019 [facility] Ibuprofen 800 MG Oral Tablet Ibuprofen 09/05/2019 12:00:00 AM EDT ORAL completed [facility] ([facility]) Amoxicillin 875 MG / Clavulanate 125 MG Oral Tablet Am oxicillin/Clavulanate Potassium 09/05/2019 12:00:00 AM EDT ORAL completed [facility] ([facility]) 800 mg 09/05/2019 12:00:00 AM EDT tablet [...] to carrion Policy Carr[place] Plan Information [facility] [id number] SP [id number] [facility] [id number] SP [id number] EXCELLUS BCBS B [id number] S YNC [id number] BCBS 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 [id number] SP [id number] Excell[employer] BCBS P [id number] S YNC [id number] D Health[employer] S [id number] S [id number] D Excellus BCBS Dental P [id number] S [id number] Self Pay P UNAVAILABLE S UNAVAILA BLE SELF PAY UNAVAILABLE S UNAVAILA BLE AMNA [id number] SP [id number] Problems, Conditions, and Diagnoses Code Display Name Description Problem Type Effective Dates Data Source(s) F33.9 Major depressive disorder, recurrent, un specified Major Depressive Disorder, Recurrent episode, Unspecified Condition 05/04/2020 12:00:00 AM EST [facility] ([facility]) 520.6 Hankins teeth impaction Hankins teeth impaction 09/08/2019 10:43:14 AM EDT [facility] Surgeries/Procedures Procedure Description Date Indications Data Source(s) TEMPMHCTelemed-Crisis Brief 05/04/2020 1 2:00:00 AM EST - 05/04/2020 12:00:00 AM EST [facility] ([facility]) TEMPMHCTelemed-Crisis Brief 05/04/2020 12:00:00 AM EST [facility] ([facility]) Brief Individual Psychotherapy - 30 min 04/09/2020 12:00:00 AM EST - 04/09/2020 12:00:00 AM EST [facility] ([facility]) Brief Individual Psychotherapy - 30 min 04/07/2020 12: 00:00 AM EST [facility] ([facility]) Extended Individual Psychotherapy - 45 min 03/29/2020 12:00:00 AM EST - 03/29/2020 12:00:00 AM EST [facility] ([facility]) Extended Individual Psychotherapy - 45 min 0 12:00:00 AM EST [facility] ([facility]) Brief Individual Psychotherapy - 30 min 03/24/2020 12:00:00 AM EST - 03/24/2020 12:00:00 AM EST [facility] ([facility]) Brief Individual Psychotherapy - 30 min 03/24/2020 12: 00:00 AM EST [facility] ([facility]) Brief Individual Psychotherapy - 30 min 03/08/2020 12:00:00 AM EST - 03/08/2020 12:00:00 AM EST [facility] ([facility]) Brief Individual Psychotherapy - 30 min 03/08/2020 12: 00:00 AM EST [facility] ([facility]) Extended Individual Psychotherapy - 45 min 02/18/2020 12:00:00 AM EST - 02/18/2020 12:00:00 AM EST [facility] ([facility]) Extended Individual Psychotherapy - 45 min 0 12:00:00 AM EST [facility] ([facility]) Brief Individual Psychotherapy - 30 min 02/06/2020 12:00:00 AM EDT - 02/06/2020 12:00:00 AM EDT [facility] ([facility]) Brief Individual Psychotherapy - 30 min 02/05/2020 12: 00:00 AM EDT [facility] ([facility]) Brief Individual Psychotherapy - 30 min 02/05/2020 12:00:00 AM EDT - 02/05/2020 12:00:00 AM EDT [facility] ([facility]) Brief Individual Psychotherapy - 30 min 02/04/2020 12: 00:00 AM EDT [facility] ([facility]) Extended Individual Psychotherapy - 45 min 01/22/2020 12:00:00 AM EDT - 01/22/2020 12:00:00 AM EDT [facility] ([facility]) Extended Individual Psychotherapy - 45 min 0 12:00:00 AM EDT [facility] ([facility]) Extended Individual Psychotherapy - 45 min 01/06/2020 12:00:00 AM EDT - 01/06/2020 12:00:00 AM EDT [facility] ([facility]) Extended Individual Psychotherapy - 45 min 0 12:00:00 AM EDT [facility] ([facility]) Psychiatric Diagnostic Evaluation (Non-Medical) 12/17/2019 12:00:00 AM EDT - 12/17/2019 12:00:00 AM EDT [facility] ([facility]) Psychiatric Diagnostic Evaluation (Non-Medical) 2019 12:00:00 AM EDT [facility] ([facility]) Results ID Date Data Source [id number] 09/08/2019 09:45:53 AM EDT [facility] Current Problems: Hankins teeth impaction (ICD-520.6) ([id number]-D01.1)Current Medications: CLINDAMYCIN HCL 300 MG CAPS (CLINDAMYCIN [...] removal) on Tooth # 16 (Performed by Garmia Valdez DMD) T - (D7140) Extraction, erupted [...] previous antibiotics. Placed prescription to [facility] on [address] and advised pt. use use ice [...] procedures on this document.Assessment & Plan Problems:Added: Hankins teeth impaction (ICD-520.6) ([id number])Medications:CLINDAMYCIN HCL 300 MG CAPSMedication Changes:New Prescription:CLINDAMYCIN HCL 300 MG CAPS-1 every 6 hours until finished Qty: 28[Capsule] Refills: 0 Method: ElectronicAllergies:No Known Allergies (updated 09/08/2019) Orders:Oral Surgery Referral [[id number]] Name Value Range Interpretation Code Description Data Jonelle rce(s) Supporting Document(s) Procedure Social History Code Duration Value Status Description Data Source(s ) Smoking 05/04/2020 12:00:00 AM EST Unknown if ever smoked comp leted Unknown if ever smoked [facility] ([facility]) Smoking 04/17/2020 12:00:00 AM EST Patient has never smoked co mpleted Patient has never smoked [facility] ([facility]) Smoking 04/09/2020 12:00:00 AM EST Unknown if ever smoked comp leted Unknown if ever smoked [facility] ([facility]) Smoking 03/29/2020 12:00:00 AM EST Unknown if ever smoked comp leted Unknown if ever smoked [facility] ([facility]) Smoking 03/24/2020 12:00:00 AM EST Unknown if ever smoked comp leted Unknown if ever smoked [facility] ([facility]) Smoking 03/08/2020 12:00:00 AM EST Unknown if ever smoked comp leted Unknown if ever smoked [facility] ([facility]) Smoking 02/18/2020 12:00:00 AM EST Unknown if ever smoked comp leted Unknown if ever smoked [facility] ([facility]) Smoking 02/06/2020 12:00:00 AM EDT Unknown if ever smoked comp leted Unknown if ever smoked [facility] ([facility]) Smoking 02/05/2020 12:00:00 AM EDT Unknown if ever smoked comp leted Unknown if ever smoked [facility] ([facility]) Smoking 01/22/2020 12:00:00 AM EDT Unknown if ever smoked comp leted Unknown if ever smoked [facility] ([facility]) Smoking 01/06/2020 12:00:00 AM EDT Unknown if ever smoked comp leted Unknown if ever smoked [facility] ([facility]) Smoking 12/17/2019 12:00:00 AM EDT Unknown if ever smoked comp leted Unknown if ever smoked [facility] ([facility]) Vital Signs ID Date Data Source UNK Name Value Range Interpretation Code Description Data Source(s) Body weight 160.00 [lb_av] 160.00 [lb_av] [facility] ([facility] Body temperature 98.0 [degF] 98.0 [degF] [facility] ([facility]) Oxygen saturation in Arterial blood by Pulse oximetry 97 % 97 % [facility] ([facility]) Respiratory rate 18 /min 18 /min [facility] ( [facility]) Heart rate 92 /min 92 /min [facility] ([facility]) Diastolic blood pressure 85 mm[Hg] 85 mm[Hg] [facility] ([facility]) Systolic blood pressure 128 mm[Hg] 128 mm[Hg] [facility] ([facility]) Body mass index (BMI) [Ratio] 26.6 kg/m2 26.6 k g/m2 [facility] ([facility]) Body height 67 [in_i] 67 [in_i] [facility] ([facility]) 5'7" Body weight 170.00 [lb_av] 170.00 [lb_av] [facility] ([facility]) Body temperature 98.0 [degF] 98.0 [degF] [facility] ([facility]) Oxygen saturation in Arterial blood by Pulse oximetry 98 % 98 % [facility] ([facility]) Respiratory rate 15 /min 15 /min [facility] ( [facility]) Heart rate 83 /min 83 /min [facility] ([facility]) Diastolic blood pressure 78 mm[Hg] 78 mm[Hg] [facility] ([facility]) Systolic blood pressure 114 mm[Hg] 114 mm[Hg] [facility] ([facility]) Body mass index (BMI) [Ratio] 26.9 kg/m2 26.9 k g/m2 [facility] ([facility]) Body height 67 [in_i] 67 [in_i] [facility] ([facility]) 5'7" Body weight 172.00 [lb_av] 172.00 [lb_av] [facility] ([facility]) Body temperature 98.5 [degF] 98.5 [degF] [facility] ([facility]) Oxygen saturation in Arterial blood by Pulse oximetry 99 % 99 % [facility] ([facility]) Heart rate 81 /min 81 /min [facility] ([facility], [facility]) Diastolic blood pressure 76 mm[Hg] 76 mm[Hg] [facility] ([facility]) Systolic blood pressure 112 mm[Hg] 112 mm[Hg] [facility] ([facility]) Body mass index (BMI) [Ratio] 26.3 kg/m2 26.3 k g/m2 [facility] ([facility]) Body height 67 [in_i] 67 [in_i] [facility] ([facility]) 5'7" Body weight 168.00 [lb_av] 168.00 [lb_av] [facility] ([facility], [facility]) Body temperature 98.6 [degF] 98.6 [degF] [facility] ([facility]) Oxygen saturation in Arterial blood by Pulse oximetry 98 % 98 % [facility] ([facility]) Respiratory rate 17 /min 17 /min [facility] ( [facility]) Heart rate 73 /min 73 /min [facility] ([facility]) Diastolic blood pressure 84 mm[Hg] 84 mm[Hg] [facility] ([facility]) Systolic blood pressure 119 mm[Hg] 119 mm[Hg] [facility] ([facility], [facility])
--- OUTSIDE RECORDS SUMMARY | 2020-05-06 14:04 | CCD ---
Author Author [facility] Organization [facility] Address Unknown Phone Unavailable Care Team Providers Care Meat Packer Name Role Phone MERRICK, BERTA Unavailable Unavailable Anai Blood Unavailable Tellze, Judith WORM PICKER Unavailable Unavailable Tellez, Judith WORM PICKER Unavailable Unavailable Tellez, Judith WORM PICKER Unavailable Unavailable Tellez, Judith WORM PICKER Unavailable Unavailable Tellez, Judith WORM PICKER Unavailable Unavailable Tellez, Judith WORM PICKER Unavailable Unavailable Tellez, Judith WORM PICKER Unavailable Unavailable Tellze, Judith WORM PICKER Unavailable Unavailable Tellez, Judith WORM PICKER Unavailable Unavailable Tellez, Judith WORM PICKER Unavailable Unavailable Tellez, Judith WORM PICKER Unavailable Unavailable Simran Betancur Unavailable Unavailable Simran Betancur Unavailable Unavailable Simran Betancur Unavailable Unavailable Simran Betancur Unavailable Unavailable Betancur, Simran Powerslyn PA Unavailable Unavailable Betancur, Simran Robertsonn PA Unavailable Unavailable Betancur, Simrna Powerslyn PA Unavailable Unavailable Betancur, Simran Robertsonn [...] is protected by Article 27-F of the [facility] Public Health law. If you continue you may have access to information: Regarding HIV / AIDS; Provided by facilities licensed or operated by the [facility] Office of Mental Health; or Provided by the [facility] Office for People With Developmental Disabilities. If such information is present, then the following [facility] mandated warning applies: This information has [...] law may result in a fine or mcfp sentence or both. A general authorization for the release of medical or other information is NOT sufficient authorization for further disc losure. Encounters Encounter Providers Location Date Indications Data Source(s ) TEMPMHCTelemed-Crisis Brief Attender: Anai jackson Correction 05/04/2020 09:40:00 AM EST - 05/04/2020 09:40:00 AM EST [facility] ([facility]) Attender: Anai Blood 05/04/2020 12:00:00 AM EST [facility] ([facility]) Outpatient Attender: Luci rojas 04/17/2020 02:10:00 PM EST [facility] ([facility]) Outpatient Attender: Judith godwin 04/14/2020 04:40:00 PM EST [facility] ([facility]) Attender: Anai Blood 04/09/2020 12:00:00 AM EST [facility] ([facility]) Brief Individual Psychotherapy - 30 min Attender: Anai [facility] 04/07/2020 07:30:00 AM EST - 04/07/2020 07:30:00 AM EST [facility] ([facility]) Extended Individual Psychotherapy - 45 min Attender: Anai Blood [facility] 03/29/2020 03:00:00 AM EST - 03/29/2020 03:00:00 AM EST [facility] ([facility]) Attender: Anai Blood 03/29/2020 12:00:00 AM EST [facility] ([facility]) Brief Individual Psychotherapy - 30 min Attender: Anai Pathak [facility] 03/24/2020 07:30:00 AM EST - 03/24/2020 07:30:00 AM EST [facility] ([facility]) Attender: Anai Blood 03/24/2020 12:00:00 AM EST [facility] ([facility]) Brief Individual Psychotherapy - 30 min Attender: Anai [place] [facility] 03/08/2020 04:00:00 AM EST - 03/08/2020 04:00:00 AM EST [facility] ([facility]) Attender: Anai Blood 03/08/2020 12:00:00 AM EST [facility] ([facility]) Extended Individual Psychotherapy - 45 min Attender: Anai Blood [facility] 02/18/2020 03:00:00 AM EST - 02/18/2020 03:00:00 AM EST [facility] ([facility]) Attender: Anai Blood 02/18/2020 12:00:00 AM EST [facility] ([facility]) Attender: Anai Blood 02/06/2020 12:00:00 AM EDT [facility] ([facility]) Brief Individual Psychotherapy - 30 min Attender: Anai [place] [facility] 02/05/2020 04:00:00 AM EDT - 02/05/2020 04:00:00 AM EDT [facility] ([facility]) Attender: Anai Blood 02/05/2020 12:00:00 AM EDT [facility] ([facility]) Brief Individual Psychotherapy - 30 min Attender: Anai Lawson du [facility] 02/04/2020 07:00:00 AM EDT - 02/04/2020 07:00:00 AM EDT [facility] ([facility]) Attender: Anai Blood 01/22/2020 12:00:00 AM EDT [facility] ([facility]) Extended Individual Psychotherapy - 45 min Attender: Anai Blood [facility] 01/21/2020 01:45:00 AM EDT - 01/21/2020 01:45:00 AM EDT [facility] ([facility]) Attender: Anai Blood 01/06/2020 12:00:00 AM EDT [facility] ([facility]) Extended Individual Psychotherapy - 45 min Attender: Anai Blood [facility] 01/05/2020 02:00:00 AM EDT - 01/05/2020 02:00:00 AM EDT [facility] ([facility]) Psychiatric Diagnostic Evaluation (Non-Medical) Attender: Aamir Blood [facility] 12/17/2019 05:00:00 AM EDT - 12/17/2019 05:00:00 AM EDT [facility] ([facility]) Attender: Anai Blood 12/17/2019 12:00:00 AM EDT [facility] ([facility]) Outpatient Attender: Judith godwin 12/16/2019 11:15:00 AM EDT [facility] ([facility]) Outpatient Attender: [facility] 12/03/2019 01:39:01 PM EDT [facility] Outpatient Attender: [facility] 12/03/2019 01:38:01 PM EDT [facility] Outpatient Attender: [facility] 09/09/2019 05:02:01 PM EDT [facility] Outpatient Attender: [facility] 09/08/2019 10:57:00 AM EDT [facility] Outpatient Attender: [facility] 09/08/2019 10:44:00 AM EDT [facility] Outpatient Attender: [facility] 09/08/2019 10:44:00 AM EDT [facility] Outpatient Attender: [facility] 09/08/2019 10:10:01 AM EDT [facility] Outpatient Attender: [facility] 09/08/2019 10:08:01 AM EDT [facility] Outpatient Attender: [facility] 09/08/2019 09:49:01 AM EDT [facility] Outpatient Attender: [facility] 09/08/2019 09:48:00 AM EDT [facility] Outpatient Attender: [facility] 09/08/2019 09:47:01 AM EDT [facility] Outpatient Attender: [facility] 09/08/2019 09:17:00 AM EDT [facility] Outpatient Attender: Judith godwin 09/05/2019 05:05:00 PM EDT [facility] ([facility]) Medications Medication Brand [...] Medications 04/14/2020 12:00:00 AM EST completed [facility] ([facility]) Cyclobenzaprine hydrochloride 5 MG Oral Tablet CYCLOBENZAPRI NE HCL 12/16/2019 12:00:00 AM EDT tablet 30 TAKE 1-2 TABLETS BY MOUTH THREE TIMES A DAY NEEDED FOR MUSCLE SPASMS TAKE 1-2 TABLETS BY MOUTH THREE TIMES A DAY NEEDED FOR MUSCLE SPASMS SOLD: 12/16/2019 [facility] Prednisone 20 MG Oral Tablet Prednisone 12/16/2019 12:00:00 AM EDT completed [facility] ([facility]) 20 mg 12/16/2019 12:00:00 AM EDT tablet 8 TAKE ONE TABLET BY MOUTH TWICE A DAY FOR 4 DAYS TAKE ONE TABLET BY MOUTH TWICE A DAY FOR 4 DAYS SOLD: 2019 [facility] Cyclobenzaprine hydrochloride 5 MG Oral Tablet Cyclobenzapri ne HCL 12/16/2019 12:00:00 AM EDT ORAL completed [facility] ([facility]) 300 mg 09/08/2019 12:00:00 AM EDT capsule 28 TAKE ONE CAPSULE BY MOUTH EVERY 6 HOURS WITH FOOD UNTIL GONE TAKE ONE CAPSULE BY MOUTH EVERY 6 HOURS WITH FOOD UNTIL GONE SOLD: 09/08/2019 [facility] Ibuprofen 800 MG Oral Tablet Ibuprofen 09/05/2019 12:00:00 AM EDT ORAL completed [facility] ([facility]) Amoxicillin 875 MG / Clavulanate 125 MG Oral Tablet Am oxicillin/Clavulanate Potassium 09/05/2019 12:00:00 AM EDT ORAL completed [facility] ([facility]) 800 mg 09/05/2019 12:00:00 AM EDT tablet [...] type / Coverage type Policy ID Covered democrat ID Covered democrat's relationship to carrion Policy [place] Plan Information [facility] [id number] SP [id number] [facility] [id number] SP [id number] EXCELLUS BCBS B [id number] S YNC [id number] BCBS 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 [id number] SP [id number] Excell[employer] BCBS P [id number] S [id number] [facility] S [id number] S [id number] D Excellus BCBS Dental P [id number] S [id number] Self Pay P UNAVAILABLE S UNAVAILA BLE SELF PAY UNAVAILABLE S UNAVAILA BLE AMNA [id number] SP [id number] Problems, Conditions, and Diagnoses Code Display Name Description Problem Type Effective Dates Data Source(s) F33.9 Major depressive disorder, recurrent, un specified Major Depressive Disorder, Recurrent episode, Unspecified Condition 05/04/2020 12:00:00 AM EST [facility] ([facility]) 520.6 [place] teeth impaction [place] teeth impaction 09/08/2019 10:43:14 AM EDT [facility] Surgeries/Procedures Procedure Description Date Indications Data Source(s) TEMPMHCTelemed-Crisis Brief 05/04/2020 1 2:00:00 AM EST - 05/04/2020 12:00:00 AM EST [facility] ([facility]) TEMPMHCTelemed-Crisis Brief 05/04/2020 12:00:00 AM EST [facility] ([facility]) Brief Individual Psychotherapy - 30 min 04/09/2020 12:00:00 AM EST - 04/09/2020 12:00:00 AM EST [facility] ([facility]) Brief Individual Psychotherapy - 30 min 04/07/2020 12: 00:00 AM EST [facility] ([facility]) Extended Individual Psychotherapy - 45 min 03/29/2020 12:00:00 AM EST - 03/29/2020 12:00:00 AM EST [facility] ([facility]) Extended Individual Psychotherapy - 45 min 0 12:00:00 AM EST [facility] ([facility]) Brief Individual Psychotherapy - 30 min 03/24/2020 12:00:00 AM EST - 03/24/2020 12:00:00 AM EST [facility] ([facility]) Brief Individual Psychotherapy - 30 min 03/24/2020 12: 00:00 AM EST [facility] ([facility]) Brief Individual Psychotherapy - 30 min 03/08/2020 12:00:00 AM EST - 03/08/2020 12:00:00 AM EST [facility] ([facility]) Brief Individual Psychotherapy - 30 min 03/08/2020 12: 00:00 AM EST [facility] ([facility]) Extended Individual Psychotherapy - 45 min 02/18/2020 12:00:00 AM EST - 02/18/2020 12:00:00 AM EST [facility] ([facility]) Extended Individual Psychotherapy - 45 min 0 12:00:00 AM EST [facility] ([facility]) Brief Individual Psychotherapy - 30 min 02/06/2020 12:00:00 AM EDT - 02/06/2020 12:00:00 AM EDT [facility] ([facility]) Brief Individual Psychotherapy - 30 min 02/05/2020 12: 00:00 AM EDT [facility] ([facility]) Brief Individual Psychotherapy - 30 min 02/05/2020 12:00:00 AM EDT - 02/05/2020 12:00:00 AM EDT [facility] ([facility]) Brief Individual Psychotherapy - 30 min 02/04/2020 12: 00:00 AM EDT [facility] ([facility]) Extended Individual Psychotherapy - 45 min 01/22/2020 12:00:00 AM EDT - 01/22/2020 12:00:00 AM EDT [facility] ([facility]) Extended Individual Psychotherapy - 45 min 0 12:00:00 AM EDT [facility] ([facility]) Extended Individual Psychotherapy - 45 min 01/06/2020 12:00:00 AM EDT - 01/06/2020 12:00:00 AM EDT [facility] ([facility]) Extended Individual Psychotherapy - 45 min 0 12:00:00 AM EDT [facility] ([facility]) Psychiatric Diagnostic Evaluation (Non-Medical) 12/17/2019 12:00:00 AM EDT - 12/17/2019 12:00:00 AM EDT [facility] ([facility]) Psychiatric Diagnostic Evaluation (Non-Medical) 2019 12:00:00 AM EDT [facility] ([facility]) Results ID Date Data Source [id number] 09/08/2019 09:45:53 AM EDT [facility] Current Problems: [place] teeth impaction (ICD-520.6) (ZJE90-S66.1)Current Medications: CLINDAMYCIN HCL 300 MG CAPS (CLINDAMYCIN [...] previous antibiotics. Placed prescription to [facility] on [address] and advised pt. use use ice [...] procedures on this document.Assessment & Plan Problems:Added: [place] teeth impaction (ICD-520.6) ([id number])Medications:CLINDAMYCIN HCL 300 MG CAPSMedication Changes:New Prescription:CLINDAMYCIN HCL 300 MG CAPS-1 every 6 hours until finished Qty: 28[Capsule] Refills: 0 Method: ElectronicAllergies:No Known Allergies (updated 09/08/2019) Orders:Oral Surgery Referral [[id number]] Name Value Range Interpretation Code Description Data Jonelle rce(s) Supporting Document(s) Procedure Social History Code Duration Value Status Description Data Source(s ) Smoking 05/04/2020 12:00:00 AM EST Unknown if ever smoked comp leted Unknown if ever smoked [facility] ([facility]) Smoking 04/17/2020 12:00:00 AM EST Patient has never smoked co mpleted Patient has never smoked [facility] ([facility], [facility]) Smoking 04/09/2020 12:00:00 AM EST Unknown if ever smoked comp leted Unknown if ever smoked [facility] ([facility]) Smoking 03/29/2020 12:00:00 AM EST Unknown if ever smoked comp leted Unknown if ever smoked [facility] ([facility]) Smoking 03/24/2020 12:00:00 AM EST Unknown if ever smoked comp leted Unknown if ever smoked [facility] ([facility]) Smoking 03/08/2020 12:00:00 AM EST Unknown if ever smoked comp leted Unknown if ever smoked [facility] ([facility]) Smoking 02/18/2020 12:00:00 AM EST Unknown if ever smoked comp leted Unknown if ever smoked [facility] ([facility]) Smoking 02/06/2020 12:00:00 AM EDT Unknown if ever smoked comp leted Unknown if ever smoked [facility] ([facility]) Smoking 02/05/2020 12:00:00 AM EDT Unknown if ever smoked comp leted Unknown if ever smoked [facility] ([facility]) Smoking 01/22/2020 12:00:00 AM EDT Unknown if ever smoked comp leted Unknown if ever smoked [facility] ([facility]) Smoking 01/06/2020 12:00:00 AM EDT Unknown if ever smoked comp leted Unknown if ever smoked [facility] ([facility]) Smoking 12/17/2019 12:00:00 AM EDT Unknown if ever smoked comp leted Unknown if ever smoked [facility] ([facility]) Vital Signs ID Date Data Source UNK Name Value Range Interpretation Code Description Data Source(s) Body weight 160.00 [lb_av] 160.00 [lb_av] [facility] ([facility], [facility]) Body temperature 98.0 [degF] 98.0 [degF] [facility] ([facility]) Oxygen saturation in Arterial blood by Pulse oximetry 97 % 97 % [facility], [facility]) Respiratory rate 18 /min 18 /min [facility] ( [facility], [facility]) Heart rate 92 /min 92 /min [facility]) Diastolic blood pressure 85 mm[Hg] 85 mm[Hg] [facility] ([facility]) Systolic blood pressure 128 mm[Hg] 128 mm[Hg] [facility] ([facility]) Body mass index (BMI) [Ratio] 26.6 kg/m2 26.6 k g/m2 [facility] ([facility], [facility]) Body height 67 [in_i] 67 [in_i] [facility] ([facility]) 5'7" Body weight 170.00 [lb_av] 170.00 [lb_av] [facility] ([facility]) Body temperature 98.0 [degF] 98.0 [degF] [facility] Oxygen saturation in Arterial blood by Pulse oximetry 98 % 98 % [facility] ([facility], [facility]) Respiratory rate 15 /min 15 /min [facility], [facility]) Heart rate 83 /min 83 /min [facility] ([facility], [facility]) Diastolic blood pressure 78 mm[Hg] 78 mm[Hg] [facility] ([facility]) Systolic blood pressure 114 mm[Hg] 114 mm[Hg] [facility] ([facility]) Body mass index (BMI) [Ratio] 26.9 kg/m2 26.9 k g/m2 [facility] ([facility], [facility]) Body height 67 [in_i] 67 [in_i] [facility] ([facility], [facility]) 5'7" Body weight 172.00 [lb_av] 172.00 [lb_av] [facility] ([facility], [facility]) Body temperature 98.5 [degF] 98.5 [degF] [facility] ([facility], [facility]) Oxygen saturation in Arterial blood by Pulse oximetry 99 % 99 % [facility] ([facility], [facility]) Heart rate 81 /min 81 /min [facility]) Diastolic blood pressure 76 mm[Hg] 76 mm[Hg] [facility] ([facility], [facility]) Systolic blood pressure 112 mm[Hg] 112 mm[Hg] [facility] ([facility], [facility]) Body mass index (BMI) [Ratio] 26.3 kg/m2 26.3 k g/m2 [facility] ([facility], [facility]) Body height 67 [in_i] 67 [in_i] [facility] ([facility], [facility]) 5'7" Body weight 168.00 [lb_av] 168.00 [lb_av] [facility] T ([facility], [facility]) Body temperature 98.6 [degF] 98.6 [degF] [facility] ([facility], [facility]) Oxygen saturation in Arterial blood by Pulse oximetry 98 % 98 % [facility] ([facility], [facility]) Respiratory rate 17 /min 17 /min [facility] ( [facility], [facility]) Heart rate 73 /min 73 /min [facility]) Diastolic blood pressure 84 mm[Hg] 84 mm[Hg] [facility] ([facility], [facility]) Systolic blood pressure 119 mm[Hg] 119 mm[Hg] [facility] ([facility], [facility])
[2020-05-06 14:37] LABS: APPEARANCE, URINE HAZY (CLEAR); BACTERIA, URINE AUTO NEGATIVE (NEGATIVE); BASO % 0.4 % (0.0-1.0); BILIRUBIN, URINE AUTO NEGATIVE (NEGATIVE); BLOOD, URINE BLOOD NEGATIVE (NEGATIVE); COLOR, URINE AMBER (YELLOW); EOS % 0.1 % (0.0-3.0); GLUCOSE, URINE (UA) AUTO NEGATIVE (NEGATIVE); HEMATOCRIT 40.3 % (36.0-47.0); HEMOGLOBIN 13.9 g/dl (12.0-15.5); KETONE, URINE AUTO 2+ mg/dL (NEGATIVE); LEUKOCYTE ESTERASE, URINE AUTO NEGATIVE (NEGATIVE); LYMPH # 1.5 10^3/uL (1.5-5.0); LYMPH % 19.4 % (24.0-44.0); MEAN CORPUSCULAR HGB CONC 34.5 g/dl (32.0-36.5); MEAN CORPUSCULAR VOLUME 92.6 fl (80.0-96.0); MONO # 0.6 10^3/uL (0.0-0.8); MONO % 7.5 % (0.0-5.0); MUCUS, URINE LARGE (NEGATIVE); NEUTROPHILS # 5.6 10^3/uL (1.5-8.5); NEUTROPHILS % 72.3 % (36.0-66.0); NITRITE, URINE AUTO NEGATIVE (NEGATIVE); PLATELET COUNT, AUTOMATED 275 10^3/uL (150-450); PROTEIN, URINE AUTO 1+ mg/dL (NEGATIVE); RBC, URINE AUTO 0 /HPF (0-3); RED BLOOD COUNT 4.35 10^6/uL (4.00-5.40); SPECIFIC GRAVITY URINE AUTO 1.033 (1.002-1.035); SQUAMOUS EPITHELIAL CELL UR AU 4 /HPF (0-6); WBC, URINE AUTO 1 /HPF (0-3); WHITE BLOOD COUNT 7.8 10^3/uL (4.0-10.0)
[2020-05-06 15:07] LABS: ALBUMIN 4.2 GM/DL (3.2-5.2); ALT/SGPT 26 U/L (12-78); BILIRUBIN,DIRECT 0.3 MG/DL (0.0-0.2); LIPASE 82 U/L (73-393); TOTAL PROTEIN 7.5 GM/DL (6.4-8.2)
[2020-05-06 15:12] LABS: HCG, SERUM QUALITATIVE POSITIVE (NEGATIVE)
--- NOTE | 2020-05-06 15:49 | REP ---
INDICATION: cramping. COMPARISON: None. TECHNIQUE: Transabdominal scanning is performed. FINDINGS: There is an intra endometrial gestational sac in the uterine fundus. Mean sac size diameter is 3 mm. This corresponds with a gestational age estimate of 4 weeks 6 days. No embryonic pole or yolk sac is seen. Uterine dimensions are 8.5 x 5.1 x 5.5 cm. Endometrial thickness is 1.4 cm. No focal uterine mass is seen. The left ovary is not seen due to bowel gas. No free fluid is noted. The right ovary measures 3.3 x 2.5 x 2.7 cm. There is a 2.0 cm cystic area in the right ovary consistent with corpus luteum. Doppler flow is present in the right ovary, resistive index is 0.57. IMPRESSION: Intrauterine gestational sac-like structure at 4 weeks 6 days by mean sac size diameter. No embryonic pole or yolk sac is seen. Accordingly, viability cannot be confirmed sonographically. Clinical and possibly sonographic follow-up are advised. There is a 2 cm cystic area in the right ovary consistent with corpus luteum. No other abnormality. <Electronically signed by Jose Syed > 05/06/20 [id number]
== END 2020-05-06 16:21 | disposition home or self-care (01) ==
LOC: M ED 12:56
DX: O26.891 Other specified pregnancy related conditions, first trimester (principal); R10.2 Pelvic and perineal pain; O99.341 Other mental disorders complicating pregnancy, first trimester; F41.9 Anxiety disorder, unspecified; Z3A.01 Less than 8 weeks gestation of pregnancy; Z79.899 Other long term (current) drug therapy

== ENCOUNTER → 2020-05-17 | Outpatient (REF) | payer BC | LOC: M PLALAB 09:39 | PROVIDERS: ATTEND Obstetrics & Gynecology | DX: Z34.91 Encounter for supervision of normal pregnancy, unspecified, first trimester (principal) ==

== ENCOUNTER → 2020-05-19 | Outpatient (REF) | payer BC | LOC: M PLALAB 08:02 | PROVIDERS: ATTEND Obstetrics & Gynecology | DX: Z34.91 Encounter for supervision of normal pregnancy, unspecified, first trimester (principal) ==

== ENCOUNTER 2020-05-29 20:49 | Emergency (ER) | payer BC ==
[~2020-05-29] VITALS: Ht 170.2 cm; Wt 80.6 kg
--- OUTSIDE RECORDS SUMMARY | 2020-05-29 20:59 | CCD ---
Author Aime Clemente Organization Unknown Address [address] [address] Phone Care Team Providers Care Claims Clerk Name Role Phone Anai Blood PCP Allergies, Adverse Reactions, Alerts No Data in Section Problem List Concept Problem Description Status Start Date Created Date Resolv ed Date Snomed Code F33.9 Major Depressive Disorder, Recurrent episode, Unspecif ied Active 05/07/2020 Medications No Data in Section Social History Social History Element Description Concept Effective Date Smoking Status Unknown if ever smoked [id number] Immunizations No Data in Section Vital Signs No Data in Section Procedures Date Concept Id Description Targeted Site Concept Targeted Site Concept Type 05/05/2020 36641 Extended Individual Psychotherapy - 45 min CPT Patient has no history of implantable de vices Encounters Encounter Start Date End Date Encounter Type Description Diagnosis Di agnosis Desc Location Author First Name Author Last Name Npid Taxonomy Cod e Taxonomy Desc Phone Number Location Addr1 Location Addr2 Location [facility] Location [facility] Location [facility] [id number] 05/05/2020 05/05/2020 40924 Extended Individual Psych otherapy - 45 min F33.9 Major depressive disorder, recurrent, unspecified [facility] Jeremi Ospina [phone] [id number] 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
--- OUTSIDE RECORDS SUMMARY | 2020-05-29 20:59 | CCD | Continuity of Care Document ---
Author Author Aime MOTLEY MD Organization Unknown Address [address] [place] [id number] Phone [phone] Care Team Providers Care Night Order Selector Name Role Phone Judith Tellez AUTM [phone] Problems Description No Information Available Social History Type Date Description Comments Sex Unknown Allergies, Adverse Reactions, Alerts Description No Information Available Medications Description No Information Available Immunizations Description No Information Available Vital Signs Date Vital Result Comment 05/13/2020 8:31am Body Temperature 96.6 F Height 67 inches 5'7" Weight 165.00 lb BMI (Body Mass Index) 25.8 kg/m2 Results Description No Information Available Procedures Description No Information Available Medical Devices Description No Information Available Encounters Type Date Location Provider Dx Diagnosis Office Visit 05/13/2020 8:00a [place] Adiel Motley MD M47.897 Other spondylosis, lumbosacral region M51.37 Other intervertebral disc de generation, lumbosacral region M48.07 Spinal stenosis, lumbosacral region M47.896 Other spondylosis, lumbar re gion M51.36 Other intervertebral disc de generation, lumbar region Assessments Date Code Description Provider 05/13/2020 M47.897 Other spondylosis, lumbosacral r egion Adiel Motley MD 05/13/2020 M51.37 Other intervertebral disc degene ration, lumbosacral region Adiel Motley MD 05/13/2020 M48.07 Spinal stenosis, lumbosacral reg ion Adiel Motley MD 05/13/2020 M47.896 Other spondylosis, lumbar region Adiel Motley MD 05/13/2020 M51.36 Other intervertebral disc degene ration, lumbar region Adiel Motley MD Plan of Treatment Future Appointment(s):* 05/25/2020 8:30 am - Barry Yip, PT, DPT at [facility] 05/13/2020 - Adiel Motley MD* M47.897 Other spondylosis, lumbosacral region * M51.37 Other intervertebral disc degeneration, lumbosacral region * M48.07 Spinal stenosis, lumbosacral region * M47.896 Other spondylosis, lumbar region* Follow up:* in 6 weeks with [facility] for low back recheck please. * M51.36 Other intervertebral disc degeneration, lumbar region Functional Status Description No Information Available Mental Status Description No Information Available Referrals Refer to Dr Reason for Referral Status Appt Date Adiel Motley MD physical therapy authorized 10 visits lumbar area 05/14/20- 08/11/20 authorization number [id number] nlg Created [address] [facility], [address] [place] [address] [phone]
--- OUTSIDE RECORDS SUMMARY | 2020-05-29 20:59 | CCD ---
Author Author [facility] Organization [facility] Address Unknown Phone Unavailable Care Team Providers Care Project Controls Specialist Name Role Phone [facility] Unavailable Unavailable Anai Blood Unavailable Tellez, Judith COMMERCIAL PARTS PROFESSIONAL Unavailable Unavailable Tellez, Judith COMMERCIAL PARTS PROFESSIONAL Unavailable Unavailable Tellez, Judith COMMERCIAL PARTS PROFESSIONAL Unavailable Unavailable Tellez, Judith COMMERCIAL PARTS PROFESSIONAL Unavailable Unavailable Tellez, Judith COMMERCIAL PARTS PROFESSIONAL Unavailable Unavailable Tellez, Judith COMMERCIAL PARTS PROFESSIONAL Unavailable Unavailable Tellez, Judith COMMERCIAL PARTS PROFESSIONAL Unavailable Unavailable Tellez, Judith COMMERCIAL PARTS PROFESSIONAL Unavailable Unavailable Tellez, Judith COMMERCIAL PARTS PROFESSIONAL Unavailable Unavailable Tellez, Judith COMMERCIAL PARTS PROFESSIONAL Unavailable Unavailable Tellez, Judith COMMERCIAL PARTS PROFESSIONAL Unavailable Unavailable Quinteros, Adiel Unavailable Unavailable Quinteros, Adiel Unavailable Unavailable Quinteros, Adiel Unavailable Unavailable Quinteros, Adiel Unavailable Unavailable Quinteros, Adiel Unavailable Unavailable Quinteros, Adiel Unavailable Unavailable Quinteros, Adiel Unavailable Unavailable Quinteros, Adiel Unavailable Unavailable Quinteros, Adiel Unavailable Unavailable Quinteros, Adiel Unavailable Unavailable Quinteros, Adiel Unavailable Unavailable Quinteros, Adiel Unavailable Unavailable Quinteros, Adiel Unavailable Unavailable Quinteros, Adiel Unavailable Unavailable Quinteros, Adiel Unavailable Unavailable Quinteros, Adiel Unavailable Unavailable Quinteros, Adiel Unavailable Unavailable Quinteros, Adiel Unavailable Unavailable Quinteros, Adiel Unavailable Unavailable Quinteros, Adiel Unavailable Unavailable Quinteros, Adiel Unavailable Unavailable Quinteros, Adiel Unavailable Unavailable Quinteros, Adiel Unavailable Unavailable Quinteros, Adiel Unavailable Unavailable Quinteros, Adiel Unavailable Unavailable Quinteros, Adiel Unavailable Unavailable Quinteros, Adiel Unavailable Unavailable Quinteros, Adiel Unavailable Unavailable Quinteros, Adiel Unavailable Unavailable Quinteros, Adiel Unavailable Unavailable Quinteros, Adiel Unavailable Unavailable Quinteros, Adiel Unavailable Unavailable Quinteros, Adiel Unavailable Unavailable Quinteros, Adiel Unavailable Unavailable Quinteros, Adiel Unavailable Unavailable Quinteros, Adiel Unavailable Unavailable Quinteros, Adiel Unavailable Unavailable Quinteros, Adiel Unavailable Unavailable Quinteros, Adiel Unavailable Unavailable Quinteros, Adiel Unavailable Unavailable Quinteros, Adiel Unavailable Unavailable Quinteros, Adiel Unavailable Unavailable Quinteros, Adiel Unavailable Unavailable Quinteros, Adiel Unavailable Unavailable Betancur, Simran Luci PA Unavailable Unavailable Betancur, Simran Luci PA Unavailable Unavailable Betancur, Simran Luci PA Unavailable Unavailable Betancur, Simran Luci PA Unavailable Unavailable Betancur, Simran Luci PA Unavailable Unavailable Betancur, Simran Luci PA Unavailable Unavailable Betancur, Simran Luci PA Unavailable Unavailable Betancur, Simran Luci PA Unavailable Unavailable Betancur, Simran Luci PA Unavailable Unavailable Betancur, Simran Luci PA Unavailable Unavailable Re-disclosure Warning The records [...] is protected by Article 27-F of the [place] State Public Health law. If you continue you may have access to information: Regarding HIV / AIDS; Provided by facilities licensed or operated by the [facility] Office of Mental Health; or Provided by the [facility] Office for People With Developmental Disabilities. If such information is present, then the following [facility] mandated warning applies: This information has been [...] law may result in a fine or intermediate sentence or both. A general authorization for the release of medical or other information is NOT sufficient authorization for further disc losure. Encounters Encounter Providers Location Date Indications Data Source(s ) Extended Individual Psychotherapy - 45 min Attender: Anai Blood [facility] 05/21/2020 04:30:00 AM EST - 05/21/2020 04:30:00 AM EST [facility] ([facility]) Attender: Anai Blood 05/21/2020 12:00:00 AM EST [facility] ([facility]) Attender: Anai Blood 05/20/2020 12:00:00 AM EST [facility] ([facility]) Extended Individual Psychotherapy - 45 min Attender: Anai Blood [facility] 05/19/2020 05:15:00 AM EST - 05/19/2020 05:15:00 AM EST [facility] ([facility]) Brief Individual Psychotherapy - 30 min Attender: Anai du [facility] 05/17/2020 02:30:00 AM EST - 05/17/2020 02:30:00 AM EST [facility] ([facility]) Attender: Anai Blood 05/17/2020 12:00:00 AM EST [facility] ([facility]) Attender: Anai Blood 05/14/2020 12:00:00 AM EST [facility] ([facility]) Outpatient Attender: Adiel [facility] 05/13/2020 07:00:0 0 AM EST [facility] ([facility] Extended Individual Psychotherapy - 45 min Attender: Anai Blood [facility] 05/12/2020 03:30:00 AM EST - 05/12/2020 03:30:00 AM EST [facility] ([facility]) Attender: Anai Blood 05/07/2020 12:00:00 AM EST [facility] ([facility]) Extended Individual Psychotherapy - 45 min Attender: Anai Blood [facility] 05/05/2020 05:00:00 AM EST - 05/05/2020 05:00:00 AM EST [facility] ([facility]) TEMPMHCTelemed-Crisis Brief Attender: Anai Lozoya renetta [facility] 05/04/2020 09:40:00 AM EST - 05/04/2020 09:40:00 AM EST [facility] ([facility]) Attender: Anai Blood 05/04/2020 12:00:00 AM EST [facility] ([facility]) Outpatient Attender: Luci rojas 04/17/2020 02:10:00 PM EST [facility] ([facility] Outpatient Attender: Judith godwin 04/14/2020 04:40:00 PM EST [facility] ([facility]) Attender: Anai Blood 04/09/2020 12:00:00 AM EST [facility] ([facility]) Brief Individual Psychotherapy - 30 min Attender: Anai du [facility] 04/07/2020 07:30:00 AM EST - 04/07/2020 07:30:00 AM EST [facility] ([facility]) Extended Individual Psychotherapy - 45 min Attender: Anai Blood [facility] 03/29/2020 03:00:00 AM EST - 03/29/2020 03:00:00 AM EST [facility] ([facility]) Attender: Anai Blood 03/29/2020 12:00:00 AM EST [facility] ([facility]) Brief Individual Psychotherapy - 30 min Attender: Anai du [facility] 03/24/2020 07:30:00 AM EST - 03/24/2020 07:30:00 AM EST [facility] ([facility]) Attender: Anai Blood 03/24/2020 12:00:00 AM EST [facility] ([facility]) Brief Individual Psychotherapy - 30 min Attender: Anai Lawson [facility] 03/08/2020 04:00:00 AM EST - 03/08/2020 04:00:00 AM EST [facility] ([facility]) Attender: Anai Blood 03/08/2020 12:00:00 AM EST [facility] ([facility]) Extended Individual Psychotherapy - 45 min Attender: Anai Blood [facility] 02/18/2020 03:00:00 AM EST - 02/18/2020 03:00:00 AM EST [facility] ([facility]) Attender: Anai Blood 02/18/2020 12:00:00 AM EST [facility] ([facility]) Attender: Anai Blood 02/06/2020 12:00:00 AM EDT [facility] ([facility]) [facility] - [facility] 04:00:00 AM EDT - 02/05/2020 04:00:00 AM EDT [facility] ([facility]) Attender: Anai Blood 02/05/2020 12:00:00 AM EDT [facility] ([facility]) Brief Individual Psychotherapy - 30 min Attender: Anai Pathak florian [facility] 02/04/2020 07:00:00 AM EDT - 02/04/2020 07:00:00 AM EDT [facility] ([facility]) Attender: Anai Blood 01/22/2020 12:00:00 AM EDT [facility] ([facility]) Extended Individual Psychotherapy - 45 min Attender: Anai Blood [facility] 01/21/2020 01:45:00 AM EDT - 01/21/2020 01:45:00 AM EDT [facility] ([facility]) Attender: Anai Blood 01/06/2020 12:00:00 AM EDT [facility] ([facility]) Extended Individual Psychotherapy - 45 min Attender: Anai Blood [facility] 01/05/2020 02:00:00 AM EDT - 01/05/2020 02:00:00 AM EDT [facility] ([facility]) Psychiatric Diagnostic Evaluation (Non-Medical) Attender: Aamir friedmanhumera Blood [facility] 12/17/2019 05:00:00 AM EDT - 12/17/2019 05:00:00 AM EDT [facility] ([facility]) Attender: Anai Jeremi 12/17/2019 12:00:00 AM EDT [facility] ([facility]) Outpatient Attender: Judith godwin 12/16/2019 11:15:00 AM EDT [facility] ([facility]) Outpatient Attender: [facility] 12/03/2019 01:39:01 PM EDT [facility] Outpatient Attender: [facility] 12/03/2019 01:38:01 PM EDT [facility] Outpatient Attender: [facility] 09/09/2019 05:02:01 PM EDT [facility] Outpatient Attender: [facility] 09/08/2019 10:57:00 AM EDT [facility] Outpatient Attender: [facility] 09/08/2019 10:44:00 AM EDT [facility] Outpatient Attender: [facility] 09/08/2019 10:44:00 AM EDT [facility] 09/08/2019 10:10:01 AM EDT [facility] 09/08/2019 10:08:01 AM EDT [facility] Outpatient Attender: [facility] 09/08/2019 09:49:01 AM EDT [facility] 09/08/2019 09:48:00 AM EDT [facility] Outpatient Attender: [facility] 09/08/2019 09:47:01 AM EDT [facility] Outpatient Attender: [facility] 09/08/2019 09:17:00 AM EDT [facility] Outpatient Attender: Judith Tellez NP Kendra godwin 09/05/2019 05:05:00 PM EDT [facility] ([facility]) Medications Medication Brand Name Start Date Product Form Dose Route Admi nistrative Instructions Pharmacy Instructions Status Indications Reaction Description Data Source(s) 2 mg 05/05/2020 12:00:00 AM EST tablet 9 TAKE ONE TABLET BY MOUTH THREE TIMES A DAY NEEDED FOR ANXIETY MAXIMUM DAILY DOSE = 3 TABLETS TAKE ONE TABLET BY MOUTH THREE TIMES A DAY NEEDED FOR ANXIETY MAXIMUM DAILY DOSE = 3 TABLETS SOLD: 05/06/2020 [facility] Sulfamethoxazole 800 MG / Trimethoprim 160 MG Oral Tab let 800-160 mg SULFAMETHOXAZOLE/TRIMETHOPRIM 04/17/2020 12:00:00 AM EST tablet 14 TAKE ONE TABLET BY MOUTH TWICE A DAY TAKE ONE TABLET BY MOUTH TWICE A DAY SOLD: 04/17/2020 [facility] Sulfamethoxazole 800 MG / Trimethoprim 160 MG Oral Tab let Sulfamethoxazole/Trimethoprim DS 04/17/2020 12:00:00 AM EST ORAL active [facility] ([facility]) No Active Medications 04/14/2020 12:00:00 AM EST completed [facility] ([facility]) Cyclobenzaprine hydrochloride 5 MG Oral Tablet CYCLOBENZAPRI NE HCL 12/16/2019 12:00:00 AM EDT tablet 30 TAKE 1-2 TABLETS BY MOUTH THREE TIMES A DAY NEEDED FOR MUSCLE SPASMS TAKE 1-2 TABLETS BY MOUTH THREE TIMES A DAY NEEDED FOR MUSCLE SPASMS SOLD: 12/16/2019 [facility] 20 mg 12/16/2019 12:00:00 AM EDT tablet 8 TAKE ONE TABLET BY MOUTH TWICE A DAY FOR 4 DAYS TAKE ONE TABLET BY MOUTH TWICE A DAY FOR 4 DAYS SOLD: 2019 [facility] Prednisone 20 MG Oral Tablet Prednisone 12/16/2019 12:00:00 AM EDT completed [facility] ([facility]) Cyclobenzaprine hydrochloride 5 MG Oral Tablet Cyclobenzapri ne HCL 12/16/2019 12:00:00 AM EDT ORAL completed [facility] ([facility]) 300 mg 09/08/2019 12:00:00 AM EDT capsule 28 TAKE ONE CAPSULE BY MOUTH EVERY 6 HOURS WITH FOOD UNTIL GONE TAKE ONE CAPSULE BY MOUTH EVERY 6 HOURS WITH FOOD UNTIL GONE SOLD: 09/08/2019 [facility] Ibuprofen 800 MG Oral Tablet Ibuprofen 09/05/2019 12:00:00 AM EDT ORAL completed [facility] ([facility]) Amoxicillin 875 MG / Clavulanate 125 MG Oral Tablet Am oxicillin/Clavulanate Potassium 09/05/2019 12:00:00 AM EDT ORAL completed [facility] ([facility]) 800 mg 09/05/2019 12:00:00 AM EDT tablet 30 TAKE ONE TABLET BY MOUTH THREE TIMES A DAY NEEDED FOR PAIN TAKE ONE TABLET BY MOUTH THREE TIMES A D AY NEEDED FOR PAIN SOLD: 09/05/2019 [facility]75-125 mg 09/05/2019 12:00:00 AM EDT tablet 20 TAKE ONE TABLET BY MOUTH TWICE A DAY FOR 10 DAYS TAKE ONE TABLET BY MOUTH TWICE A DAY FOR 10 DAYS SOLD: 09/05/2019 [facility] Insurance Providers Payer name Policy type / Coverage type Policy ID Covered constitution party ID Covered constitution party's relationship to carrion Policy [place] Plan Information BCBS [facility] [id number] SP [id number] BCBS [place] PPO 302/307 [id number] SP [id number] [facility] [id number] SP [id number] EXCELL[employer] BCBS B [id number] [id number] BCBS 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 [id number] SP [id number] Excellus BCBS P [id number] D [employer] S [id number] S [id number] D Excellus BCBS Dental P [id number] S [id number] Self Pay P UNAVAILABLE S UNAVAILA BLE SELF PAY UNAVAILABLE S UNAVAILA BLE AMNA [id number] SP [id number] Problems, Conditions, and Diagnoses Code Display Name Description Problem Type Effective Dates Data Source(s) F33.9 Major depressive disorder, recurrent, un specified Major Depressive Disorder, Recurrent episode, Unspecified Condition 05/20/2020 12:00:00 AM EST [facility] ([facility]) 520.6 Kirby teeth impaction Kirby teeth impaction 09/08/2019 10:43:14 AM EDT [facility] Surgeries/Procedures Procedure Description Date Indications Data Source(s) Extended Individual Psychotherapy - 45 min 05/21/2020 12:00:00 AM EST - 05/21/2020 12:00:00 AM EST [facility] ([facility]) Extended Individual Psychotherapy - 45 min 12:00:00 AM EST [facility] ([facility]) Extended Individual Psychotherapy - 45 min 05/20/2020 12:00:00 AM EST - 05/20/2020 12:00:00 AM EST [facility] ([facility]) Extended Individual Psychotherapy - 45 min 12:00:00 AM EST [facility] ([facility]) Brief Individual Psychotherapy - 30 min 05/17/2020 12:00:00 AM EST - 05/17/2020 12:00:00 AM EST [facility] ([facility]) Brief Individual Psychotherapy - 30 min 05/17/2020 12: 00:00 AM EST [facility] ([facility]) Extended Individual Psychotherapy - 45 min 05/14/2020 12:00:00 AM EST - 05/14/2020 12:00:00 AM EST [facility] ([facility]) Extended Individual Psychotherapy - 45 min 12:00:00 AM EST [facility] ([facility]) Extended Individual Psychotherapy - 45 min 05/07/2020 12:00:00 AM EST - 05/07/2020 12:00:00 AM EST [facility] ([facility]) Extended Individual Psychotherapy - 45 min 12:00:00 AM EST [facility] ([facility]) TEMPMHCTelemed-Crisis Brief 05/04/2020 1 2:00:00 AM EST - 05/04/2020 12:00:00 AM EST [facility] ([facility]) TEMPMHCTelemed-Crisis Brief 05/04/2020 12:00:00 AM EST [facility] ([facility]) Brief Individual Psychotherapy - 30 min 04/09/2020 12:00:00 AM EST - 04/09/2020 12:00:00 AM EST [facility] ([facility]) Brief Individual Psychotherapy - 30 min 04/07/2020 12: 00:00 AM EST [facility] ([facility]) Extended Individual Psychotherapy - 45 min 03/29/2020 12:00:00 AM EST - 03/29/2020 12:00:00 AM EST [facility] ([facility]) Extended Individual Psychotherapy - 45 min 0 12:00:00 AM EST [facility] ([facility]) Brief Individual Psychotherapy - 30 min 03/24/2020 12:00:00 AM EST - 03/24/2020 12:00:00 AM EST [facility] ([facility]) Brief Individual Psychotherapy - 30 min 03/24/2020 12: 00:00 AM EST [facility] ([facility]) Brief Individual Psychotherapy - 30 min 03/08/2020 12:00:00 AM EST - 03/08/2020 12:00:00 AM EST [facility] ([facility]) Brief Individual Psychotherapy - 30 min 03/08/2020 12: 00:00 AM EST [facility] ([facility]) Extended Individual Psychotherapy - 45 min 02/18/2020 12:00:00 AM EST - 02/18/2020 12:00:00 AM EST [facility] ([facility]) Extended Individual Psychotherapy - 45 min 0 12:00:00 AM EST [facility] ([facility]) Brief Individual Psychotherapy - 30 min 02/06/2020 12:00:00 AM EDT - 02/06/2020 12:00:00 AM EDT [facility] ([facility]) Brief Individual Psychotherapy - 30 min 02/05/2020 12: 00:00 AM EDT [facility] ([facility]) Brief Individual Psychotherapy - 30 min 02/05/2020 12:00:00 AM EDT - 02/05/2020 12:00:00 AM EDT [facility] ([facility]) Brief Individual Psychotherapy - 30 min 02/04/2020 12: 00:00 AM EDT [facility] ([facility]) Extended Individual Psychotherapy - 45 min 01/22/2020 12:00:00 AM EDT - 01/22/2020 12:00:00 AM EDT [facility] ([facility]) Extended Individual Psychotherapy - 45 min 0 12:00:00 AM EDT [facility] ([facility]) Extended Individual Psychotherapy - 45 min 01/06/2020 12:00:00 AM EDT - 01/06/2020 12:00:00 AM EDT [facility] ([facility]) Extended Individual Psychotherapy - 45 min 0 12:00:00 AM EDT [facility] ([facility]) Psychiatric Diagnostic Evaluation (Non-Medical) 12/17/2019 12:00:00 AM EDT - 12/17/2019 12:00:00 AM EDT [facility] ([facility]) Psychiatric Diagnostic Evaluation (Non-Medical) 2019 12:00:00 AM EDT [facility] ([facility]) Results ID Date Data Source [id number] 09/08/2019 09:45:53 AM EDT [facility] Current Problems: Kirby teeth impaction (ICD-520.6) (FBT73-B47.1)Current Medications: CLINDAMYCIN HCL 300 MG CAPS (CLINDAMYCIN [...] seen with previous antibiotics. [facility] [address] and advised pt. use use ice pack for discomfort. DX: wisdom teeth impaction. P:refer to OS.E-scribe Clindamycin 300mg q6h 28 quantity with zero refills. Informed Pt about new pain management policy of the clinic regarding about narcotic,told pt to alternate Ibuprophen 600- 800mg and tylenol 500mg every 4 to 6 hrs for pain when neededAssisted By:AMNV: new p/eJames VIZCAINO, Garima by mak (09/08/2019 10:41 AM): Tooth Notes and Watches: Note: There are Un- Billed (C Type) procedures on this document.Assessment & Plan Problems:Added: Kirby teeth impaction (ICD-520.6) ([id number])Medications:CLINDAMYCIN HCL 300 MG CAPSMedication Changes:New Prescription:CLINDAMYCIN HCL 300 MG CAPS-1 every 6 hours until finished Qty: 28[Capsule] Refills: 0 Method: ElectronicAllergies:No Known Allergies (updated 09/08/2019) Orders:Oral Surgery Referral [[id number]] Name Value Range Interpretation Code Description Data Jonelle rce(s) Supporting Document(s) Procedure Social History Code Duration Value Status Description Data Source(s ) Smoking 05/21/2020 12:00:00 AM EST Unknown if ever smoked comp leted Unknown if ever smoked [facility] ([facility]) Smoking 05/20/2020 12:00:00 AM EST Unknown if ever smoked comp leted Unknown if ever smoked [facility] ([facility]) Smoking 05/17/2020 12:00:00 AM EST Unknown if ever smoked comp leted Unknown if ever smoked [facility] ([facility]) Smoking 05/14/2020 12:00:00 AM EST Unknown if ever smoked comp leted Unknown if ever smoked [facility] ([facility]) Smoking 05/07/2020 12:00:00 AM EST Unknown if ever smoked comp leted Unknown if ever smoked [facility] ([facility]) Smoking 05/04/2020 12:00:00 AM EST Unknown if ever smoked comp leted Unknown if ever smoked [facility] ([facility]) Smoking 04/17/2020 12:00:00 AM EST Patient has never smoked co mpleted Patient has never smoked [facility] ([facility]) Smoking 04/09/2020 12:00:00 AM EST Unknown if ever smoked comp leted Unknown if ever smoked [facility] ([facility]) Smoking 03/29/2020 12:00:00 AM EST Unknown if ever smoked comp leted Unknown if ever smoked [facility] ([facility]) Smoking 03/24/2020 12:00:00 AM EST Unknown if ever smoked comp leted Unknown if ever smoked [facility] ([facility]) Smoking 03/08/2020 12:00:00 AM EST Unknown if ever smoked comp leted Unknown if ever smoked [facility] ([facility]) Smoking 02/18/2020 12:00:00 AM EST Unknown if ever smoked comp leted Unknown if ever smoked [facility] ([facility]) Smoking 02/06/2020 12:00:00 AM EDT Unknown if ever smoked comp leted Unknown if ever smoked [facility] ([facility]) Smoking 02/05/2020 12:00:00 AM EDT Unknown if ever smoked comp leted Unknown if ever smoked [facility] ([facility]) Smoking 01/22/2020 12:00:00 AM EDT Unknown if ever smoked comp leted Unknown if ever smoked [facility] ([facility]) Smoking 01/06/2020 12:00:00 AM EDT Unknown if ever smoked comp leted Unknown if ever smoked [facility] ([facility]) Smoking 12/17/2019 12:00:00 AM EDT Unknown if ever smoked comp leted Unknown if ever smoked [facility] ([facility]) Vital Signs ID Date Data Source UNK Name Value Range Interpretation Code Description Data Source(s) Body mass index (BMI) [Ratio] 25.8 kg/m2 25.8 k g/m2 [facility] ([facility]) Body weight 165.00 [lb_av] 165.00 [lb_av] [facility] T ([facility]) Body height 67 [in_i] 67 [in_i] [facility] ([facility]) 5'7" Body temperature 96.6 [degF] 96.6 [degF] [facility] ([facility] ) Body weight 160.00 [lb_av] 160.00 [lb_av] [facility] T ([facility]) Body temperature 98.0 [degF] 98.0 [degF] [facility] ([facility]) Oxygen saturation in Arterial blood by Pulse oximetry 97 % 97 % [facility] ([facility]) Respiratory rate 18 /min 18 /min [facility] ( [facility]) Heart rate 92 /min 92 /min [facility] ([facility]) Diastolic blood pressure 85 mm[Hg] 85 mm[Hg] [facility] ([facility]) Systolic blood pressure 128 mm[Hg] 128 mm[Hg] [facility] Body mass index (BMI) [Ratio] 26.6 kg/m2 26.6 k g/m2 [facility] ([facility]) Body height 67 [in_i] 67 [in_i] [facility] ([facility]) 5'7" Body weight 170.00 [lb_av] 170.00 [lb_av] [facility] T ([facility]) Body temperature 98.0 [degF] 98.0 [degF] [facility] ([facility]) Oxygen saturation in Arterial blood by Pulse oximetry 98 % 98 % [facility] ([facility]) Respiratory rate 15 /min 15 /min [facility] ( [facility]) Heart rate 83 /min 83 /min [facility] ([facility]) Diastolic blood pressure 78 mm[Hg] 78 mm[Hg] [facility] [facility], [facility]) Systolic blood pressure 114 mm[Hg] 114 mm[Hg] [facility]) Body mass index (BMI) [Ratio] 26.9 kg/m2 26.9 k g/m2 [facility]) Body height 67 [in_i] 67 [in_i] [facility] ([facility], [facility]) 5'7" Body weight 172.00 [lb_av] 172.00 [lb_av] MEDEN T ([facility], [facility]) Body temperature 98.5 [degF] 98.5 [degF] [facility] ([facility], [facility]) Oxygen saturation in Arterial blood by Pulse oximetry 99 % 99 % [facility], [facility]) Heart rate 81 /min 81 /min [facility] ([facility], [facility]) Diastolic blood pressure 76 mm[Hg] 76 mm[Hg] [facility] ([facility], [facility]) Systolic blood pressure 112 mm[Hg] 112 mm[Hg] [facility] ([facility], [facility]) Body mass index (BMI) [Ratio] 26.3 kg/m2 26.3 k g/m2 [facility] ([facility], [facility]) Body height 67 [in_i] 67 [in_i] [facility] ([facility], [facility]) 5'7" Body weight 168.00 [lb_av] 168.00 [lb_av] [facility] T ([facility], [facility]) Body temperature 98.6 [degF] 98.6 [degF] [facility], [facility]) Oxygen saturation in Arterial blood by Pulse oximetry 98 % 98 % [facility], [facility]) Respiratory rate 17 /min 17 /min [facility], [facility]) Heart rate 73 /min 73 /min [facility] ([facility], [facility]) Diastolic blood pressure 84 mm[Hg] 84 mm[Hg] [facility] ([facility], [facility]) Systolic blood pressure 119 mm[Hg] 119 mm[Hg] [facility] ([facility], [facility])
--- OUTSIDE RECORDS SUMMARY | 2020-05-29 20:59 | CCD | Continuity of Care Document ---
Author Author Aime MOTLEY MD Organization Unknown Address [address] [place] [address] Phone [phone] Care Team Providers Care Environmental Services Coordinator Name Role Phone Judith Tellez AUTM [phone] Problems Description No Information Available Social History [...] Provider Dx Diagnosis Office Visit 05/13/2020 8:00a [place] Adiel Motley MD M47.896 Other spondylosis, lumbar region M48.07 Spinal stenosis, lumbosacral region M51.36 Other intervertebral disc de generation, lumbar region M51.37 Other intervertebral disc de generation, lumbosacral region Assessments Date Code Description Provider 05/13/2020 M47.896 Other spondylosis, lumbar region Adiel Motley MD 05/13/2020 M48.07 Spinal stenosis, lumbosacral reg ion Adiel Motley MD 05/13/2020 M51.36 Other intervertebral disc degene ration, lumbar region Adiel Motley MD 05/13/2020 M51.37 Other intervertebral disc degene ration, lumbosacral region Adiel Motley MD Plan of Treatment 05/13/2020 - Adiel Motley MD* M47.896 Other spondylosis, lumbar region* Follow up:* in 6 weeks with [facility] for low back recheck please. * M48.07 Spinal stenosis, lumbosacral region * M51.36 Other intervertebral disc degeneration, lumbar region * M51.37 Other intervertebral disc degeneration, lumbosacral region Functional Status Description No Information Available Mental Status Description No Information Available Referrals Description No Information Available
--- OUTSIDE RECORDS SUMMARY | 2020-05-29 20:59 | CCD ---
Author Aime Clemente Organization Unknown Address [address] [address] Phone Care Team Providers Care Cash Reconciliation Specialist Name Role Phone Anai Blood PCP Allergies, Adverse Reactions, Alerts No Data in Section Problem List Concept Problem Description Status Start Date Created Date Resolv ed Date Snomed Code F33.9 Major Depressive Disorder, Recurrent episode, Unspecif ied Active 05/21/2020 Medications No Data in Section Social History Social History Element Description Concept Effective Date Smoking Status Unknown if ever smoked [id number] Immunizations No Data in Section Vital Signs No Data in Section Procedures Date Concept Id Description Targeted Site Concept Targeted Site Concept Type 05/19/2020 00687 Extended Individual Psychotherapy - 45 min CPT Patient has no history of implantable de vices Encounters Encounter Start Date End Date Encounter Type Description Diagnosis Di agnosis Desc Location Author First Name Author Last Name Npid Taxonomy Cod e Taxonomy Desc Phone Number Location Addr1 Location Addr2 Location [facility] Location [facility] Location [facility] [id number] 05/19/2020 05/19/2020 27886 Extended Individual Psych otherapy - 45 min F33.9 Major depressive disorder, recurrent, unspecified Comm [facility] Jeremi Ospina [id number] Parking Worker [id number] [address] [address] Plan of Treatment No Data in Section Lab Results No Data in Section Instructions No Data in Section Insurance Providers Insurance Id Policy Effective Date Policy Thru Date Company N warren [id number] 2019 [employer]
--- OUTSIDE RECORDS SUMMARY | 2020-05-29 20:59 | CCD ---
Author Aime Clemente Organization Unknown Address [address] [address] Phone Care Team Providers Care Asphalt Plant Operator Name Role Phone Anai Blood PCP Allergies, Adverse Reactions, Alerts No Data in Section Problem List Concept Problem Description Status Start Date Created Date Resolv ed Date Snomed Code F33.9 Major Depressive Disorder, Recurrent episode, Unspecif ied Active 05/17/2020 Medications No Data in Section Social History Social History Element Description Concept Effective Date Smoking Status Unknown if ever smoked [id number] Immunizations No Data in Section Vital Signs No Data in Section Procedures Date Concept Id Description Targeted Site Concept Targeted Site Concept Type 05/17/2020 89138 Brief Individual Psychotherapy - 30 min CPT Patient has no history of implantable de vices Encounters Encounter Start Date End Date Encounter Type Description Diagnosis Di agnosis Desc Location Author First Name Author Last Name Npid Taxonomy Cod e Taxonomy Desc Phone Number Location Addr1 Location Addr2 Location [facility] Location [facility] Location 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
--- OUTSIDE RECORDS SUMMARY | 2020-05-29 20:59 | CCD ---
Author Aime Clemente Organization Unknown Address [address] [address] Phone Care Team Providers Care Title Vehicle Service Attendant Name Role Phone Anai Blood PCP Allergies, Adverse Reactions, Alerts No Data in Section Problem List Concept Problem Description Status Start Date Created Date Resolv ed Date Snomed Code F33.9 Major Depressive Disorder, Recurrent episode, Unspecif ied Active 05/21/2020 Medications No Data in Section Social History Social History Element Description Concept Effective Date Smoking Status Unknown if ever smoked [id number] Immunizations No Data in Section Vital Signs No Data in Section Procedures Date Concept Id Description Targeted Site Concept Targeted Site Concept Type 05/21/2020 68970 Extended Individual Psychotherapy - 45 min CPT Patient has no history of implantable de vices Encounters Encounter Start Date End Date Encounter Type Description Diagnosis Di agnosis Desc Location Author First Name Author Last Name Npid Taxonomy Cod e Taxonomy Desc Phone Number Location Addr1 Location Addr2 Location [facility] Location [facility] Location [facility] [id number] 05/21/2020 05/21/2020 24620 Extended Individual Psych otherapy - 45 min F33.9 Major depressive disorder, recurrent, unspecified Comm [facility] Jeremi Ospina [id number] [id number] Patient Transport Orderly [id number] [phone] [address] Plan of Treatment No Data in Section Lab Results No Data in Section Instructions No Data in Section Insurance Providers Insurance Id Policy Effective Date Policy Thru Date Company N [employer] [id number] 2019 [employer]
--- OUTSIDE RECORDS SUMMARY | 2020-05-29 20:59 | CCD ---
Author Aime Clemente Organization Unknown Address [address] [address] Phone Care Team Providers Care Airplane Woodworker Name Role Phone Anai Blood PCP Allergies, Adverse Reactions, Alerts No Data in Section Problem List Concept Problem Description Status Start Date Created Date Resolv ed Date Snomed Code F33.9 Major Depressive Disorder, Recurrent episode, Unspecif ied Active 05/14/2020 Medications No Data in Section Social History Social History Element Description Concept Effective Date Smoking Status Unknown if ever smoked [id number] Immunizations No Data in Section Vital Signs No Data in Section Procedures Date Concept Id Description Targeted Site Concept Targeted Site Concept Type 05/12/2020 01194 Extended Individual Psychotherapy - 45 min CPT Patient has no history of implantable de vices Encounters Encounter Start Date End Date Encounter Type Description Diagnosis Di agnosis Desc Location Author First Name Author Last Name Npid Taxonomy Cod e Taxonomy Desc Phone Number Location Addr1 Location Addr2 Location [facility] Location [facility] Location [facility] [id number] 05/12/2020 05/12/2020 24040 Extended Individual Psych otherapy - 45 min F33.9 Major depressive disorder, recurrent, unspecified Comm [facility] Jeremi Ospina [phone] [id number] Experienced 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
[2020-05-29 21:44] LABS: BASO % 0.5 % (0.0-1.0); EOS % 0.6 % (0.0-3.0); HEMOGLOBIN 12.8 g/dl (12.0-15.5); LYMPH # 1.8 10^3/uL (1.5-5.0); LYMPH % 29.1 % (24.0-44.0); MEAN CORPUSCULAR HGB CONC 32.8 g/dl (32.0-36.5); MEAN CORPUSCULAR VOLUME 94.4 fl (80.0-96.0); MONO # 0.6 10^3/uL (0.0-0.8); MONO % 9.3 % (2.0-8.0); NEUTROPHILS # 3.8 10^3/uL (1.5-8.5); PLATELET COUNT, AUTOMATED 240 10^3/uL (150-450); RED BLOOD COUNT 4.13 10^6/uL (4.00-5.40); WHITE BLOOD COUNT 6.3 10^3/uL (4.0-10.0)
--- OUTSIDE RECORDS SUMMARY | 2020-05-29 21:46 | CCD ---
Author Author [facility] Organization [facility] Address Unknown Phone Unavailable Care Team Providers Care Coating And Embossing Unit Operator Name Role Phone [facility] Unavailable Unavailable Anai Blood Unavailable Tellez, Judith INVESTOR RELATIONS ANALYST Unavailable Unavailable Tellez, Judith INVESTOR RELATIONS ANALYST Unavailable Unavailable Tellez, Judith INVESTOR RELATIONS ANALYST Unavailable Unavailable Tellez, Judiht INVESTOR RELATIONS ANALYST Unavailable Unavailable Tellez, Judith INVESTOR RELATIONS ANALYST Unavailable Unavailable Tellez, Judith INVESTOR RELATIONS ANALYST Unavailable Unavailable Tellez, Judith INVESTOR RELATIONS ANALYST Unavailable Unavailable Tellez, Judith INVESTOR RELATIONS ANALYST Unavailable Unavailable Tellez, Judith INVESTOR RELATIONS ANALYST Unavailable Unavailable Tellez, Judith INVESTOR RELATIONS ANALYST Unavailable Unavailable Tellez, Judith INVESTOR RELATIONS ANALYST Unavailable Unavailable Quinteros, Adiel Unavailable Unavailable Quinteros, Adiel Unavailable Unavailable Quinteros, Adiel Unavailable Unavailable Quinteros, Adiel Unavailable Unavailable Quinteros, Adiel Unavailable Unavailable Quinteros, Adiel Unavailable Unavailable Quinteros, Adiel Unavailable Unavailable Quinteros, Adiel Unavailable Unavailable Quinteros, Adiel Unavailable Unavailable Quinteros, Adiel Unavailable Unavailable Quinteros, Daiel Unavailable Unavailable Quinteros, Adiel Unavailable Unavailable Quinteros, [...] is protected by Article 27-F of the [place] Public Health law. If you continue you may have access to information: Regarding HIV / AIDS; Provided by facilities licensed or operated by the [facility] Office of Mental Health; or Provided by the [facility] Office for People With Developmental Disabilities. If such information is present, then the following [facility] mandated warning applies: This information has [...] law may result in a fine or halfway sentence or both. A general authorization for the release of medical or other information is NOT sufficient authorization for further disc losure. Encounters Encounter Providers Location Date Indications Data Source(s ) Extended Individual Psychotherapy - 45 min Attender: Anai Blood [facility] 05/21/2020 04:30:00 AM EST - 05/21/2020 04:30:00 AM EST [facility] ([facility]) Attender: Anai Blood 05/21/2020 12:00:00 AM EST [facility] ([facility]) Attender: Anai Blood 05/20/2020 12:00:00 AM EST [facility] ([facility]) Extended Individual Psychotherapy - 45 min Attender: Anai Blood [facility] 05/19/2020 05:15:00 AM EST - 05/19/2020 05:15:00 AM EST [facility] ([facility]) Brief Individual Psychotherapy - 30 min Attender: Anai du [facility] 05/17/2020 02:30:00 AM EST - 05/17/2020 02:30:00 AM EST [facility] ([facility]) Attender: Anai Blood 05/17/2020 12:00:00 AM EST [facility] ([facility]) Attender: Anai Blood 05/14/2020 12:00:00 AM EST [facility] ([facility]) Outpatient Attender: Adiel Quinteros [facility] 05/13/2020 07:00:0 0 AM EST [facility] ([facility] Extended Individual Psychotherapy - 45 min Attender: Anai Blood [facility] 05/12/2020 03:30:00 AM EST - 05/12/2020 03:30:00 AM EST [facility] ([facility]) Attender: Anai Blood 05/07/2020 12:00:00 AM EST [facility] ([facility]) Extended Individual Psychotherapy - 45 min Attender: Anai Blood [facility] 05/05/2020 05:00:00 AM EST - 05/05/2020 05:00:00 AM EST [facility] ([facility]) TEMPMHCTelemed-Crisis Brief Attender: Anai Lozoya renetta [facility] 05/04/2020 09:40:00 AM EST - 05/04/2020 09:40:00 AM EST [facility] ([facility]) Attender: Anai Blood 05/04/2020 12:00:00 AM EST [facility] ([facility]) Outpatient Attender: Luci rojas 04/17/2020 02:10:00 PM EST [facility] ([facility]) Outpatient Attender: Judith godwin 04/14/2020 04:40:00 PM EST [facility] ([facility]) Attender: Anai Blood 04/09/2020 12:00:00 AM EST [facility] ([facility]) Brief Individual Psychotherapy - 30 min Attender: Anai du [facility] 04/07/2020 07:30:00 AM EST - 04/07/2020 07:30:00 AM EST [facility] ([facility]) Extended Individual Psychotherapy - 45 min Attender: Anai Blood [facility] 03/29/2020 03:00:00 AM EST - 03/29/2020 03:00:00 AM EST [facility] ([facility]) Attender: Anai Blood 03/29/2020 12:00:00 AM EST [facility] ([facility]) Brief Individual Psychotherapy - 30 min Attender: Anai du [facility] 03/24/2020 07:30:00 AM EST - 03/24/2020 07:30:00 AM EST [facility] ([facility]) Attender: Anai Blood 03/24/2020 12:00:00 AM EST [facility] ([facility]) Brief Individual Psychotherapy - 30 min Attender: Anai Lawson du [facility] 03/08/2020 04:00:00 AM EST - 03/08/2020 04:00:00 AM EST [facility] ([facility]) Attender: Anai Blood 03/08/2020 12:00:00 AM EST [facility] ([facility]) Extended Individual Psychotherapy - 45 min Attender: Anai Blood [facility] 02/18/2020 03:00:00 AM EST - 02/18/2020 03:00:00 AM EST [facility] ([facility]) Attender: Anai Blood 02/18/2020 12:00:00 AM EST [facility] ([facility]) Attender: Anai Blood 02/06/2020 12:00:00 AM EDT [facility] ([facility]) Brief Individual Psychotherapy - 30 min [facility] 04:00:00 AM EDT - 02/05/2020 04:00:00 AM EDT [facility] ([facility]) Attender: Anai Blood 02/05/2020 12:00:00 AM EDT [facility] ([facility]) Brief Individual Psychotherapy - 30 min Attender: Anai Pathak florian [facility] 02/04/2020 07:00:00 AM EDT - 02/04/2020 07:00:00 AM EDT [facility] ([facility]) Attender: Anai Blood 01/22/2020 12:00:00 AM EDT [facility] ([facility]) Extended Individual Psychotherapy - 45 min Attender: Anai Blood [facility] 01/21/2020 01:45:00 AM EDT - 01/21/2020 01:45:00 AM EDT [facility] ([facility]) Attender: Anai Blood 01/06/2020 12:00:00 AM EDT [facility] ([facility]) Extended Individual Psychotherapy - 45 min Attender: Anai Blood [facility] 01/05/2020 02:00:00 AM EDT - 01/05/2020 02:00:00 AM EDT [facility] ([facility]) Psychiatric Diagnostic Evaluation (Non-Medical) Attender: Aamir friedmanhumera Blood [facility] 12/17/2019 05:00:00 AM EDT - 12/17/2019 05:00:00 AM EDT [facility] ([facility]) Attender: Anai Jeremi 12/17/2019 12:00:00 AM EDT [facility] ([facility]) Outpatient Attender: Judith godwin 12/16/2019 11:15:00 AM EDT [facility] ([facility]) Outpatient Attender: MAK [facility] 12/03/2019 01:39:01 PM EDT [facility] Outpatient Attender: MAK [facility] 12/03/2019 01:38:01 PM EDT [facility] Outpatient Attender: MAK [facility] 09/09/2019 05:02:01 PM EDT [facility] Outpatient Attender: MAK [facility] 09/08/2019 10:57:00 AM EDT [facility] Outpatient Attender: MAK [facility] 09/08/2019 10:44:00 AM EDT [facility] Outpatient Attender: MAK [facility] 09/08/2019 10:44:00 AM EDT [facility] 10:10:01 AM EDT [facility] 09/08/2019 10:08:01 AM EDT [facility] Outpatient Attender: [facility] 09/08/2019 09:49:01 AM EDT [facility] 09/08/2019 09:48:00 AM EDT [facility] Outpatient Attender: [facility] 09/08/2019 09:47:01 AM EDT [facility] Outpatient Attender: [facility] 09/08/2019 09:17:00 AM EDT [facility] Outpatient Attender: Judith Tellez NP Kendra godwin 09/05/2019 05:05:00 PM EDT [facility] ([facility]) Medications Medication Brand Name Start Date Product [...] 04/17/2020 12:00:00 AM EST ORAL active [facility] ([facility]) No Active Medications 04/14/2020 12:00:00 AM EST completed [facility] ([facility]) Cyclobenzaprine hydrochloride 5 MG Oral Tablet CYCLOBENZAPRI [...] Prednisone 12/16/2019 12:00:00 AM EDT completed [facility] ([facility]) Cyclobenzaprine hydrochloride 5 MG Oral Tablet Cyclobenzapri ne HCL 12/16/2019 12:00:00 AM EDT ORAL completed [facility] ([facility]) 300 mg 09/08/2019 12:00:00 AM EDT capsule 28 TAKE ONE CAPSULE BY MOUTH EVERY 6 HOURS WITH FOOD UNTIL GONE TAKE ONE CAPSULE BY MOUTH EVERY 6 HOURS WITH FOOD UNTIL GONE SOLD: 09/08/2019 [facility]uprofen 800 MG Oral Tablet Ibuprofen 09/05/2019 12:00:00 AM EDT ORAL completed [facility] ([facility]) Amoxicillin 875 MG / Clavulanate 125 MG Oral Tablet Am oxicillin/Clavulanate Potassium 09/05/2019 12:00:00 AM EDT ORAL completed [facility] ([facility]) 800 mg 09/05/2019 12:00:00 AM EDT tablet [...] to carrion Policy Carr[place] Plan Information BCBS [facility] [id number] SP [id number] BCBS [place] PPO 302/[id number] SP [id number] SP [id number] EXCELLUS BCBS B [id number] S [id number] BCBS 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 [id number] SP [id number] Excellus BCBS P [id number] S [id number] D Healthplex S [id number] S [id number] D Excellus BCBS Dental P [id number] S [id number] Self Pay P UNAVAILABLE S UNAVAILA BLE SELF PAY UNAVAILABLE S UNAVAILA BLE AMNA [id number] SP [id number] Problems, Conditions, and Diagnoses Code Display Name Description Problem Type Effective Dates Data Source(s) F33.9 Major depressive disorder, recurrent, un specified Major Depressive Disorder, Recurrent episode, Unspecified Condition 05/20/2020 12:00:00 AM EST [facility] ([facility]) 520.6 [place] teeth impaction [place] teeth impaction 09/08/2019 10:43:14 AM EDT [facility] Surgeries/Procedures Procedure Description Date Indications Data Source(s) Extended Individual Psychotherapy - 45 min 05/21/2020 12:00:00 AM EST - 05/21/2020 12:00:00 AM EST [facility] ([facility]) Extended Individual Psychotherapy - 45 min 12:00:00 AM EST [facility] ([facility]) Extended Individual Psychotherapy - 45 min 05/20/2020 12:00:00 AM EST - 05/20/2020 12:00:00 AM EST [facility] ([facility]) Extended Individual Psychotherapy - 45 min 12:00:00 AM EST [facility] ([facility]) Brief Individual Psychotherapy - 30 min 05/17/2020 12:00:00 AM EST - 05/17/2020 12:00:00 AM EST [facility] ([facility]) Brief Individual Psychotherapy - 30 min 05/17/2020 12: 00:00 AM EST [facility] ([facility]) Extended Individual Psychotherapy - 45 min 05/14/2020 12:00:00 AM EST - 05/14/2020 12:00:00 AM EST [facility] ([facility]) Extended Individual Psychotherapy - 45 min 12:00:00 AM EST [facility] ([facility]) Extended Individual Psychotherapy - 45 min 05/07/2020 12:00:00 AM EST - 05/07/2020 12:00:00 AM EST [facility] ([facility]) Extended Individual Psychotherapy - 45 min 12:00:00 AM EST [facility] ([facility]) TEMPMHCTelemed-Crisis Brief 05/04/2020 1 2:00:00 AM EST - 05/04/2020 12:00:00 AM EST [facility] ([facility]) TEMPMHCTelemed-Crisis Brief 05/04/2020 12:00:00 AM EST [facility] ([facility]) Brief Individual Psychotherapy - 30 min 04/09/2020 12:00:00 AM EST - 04/09/2020 12:00:00 AM EST [facility] ([facility]) Brief Individual Psychotherapy - 30 min 04/07/2020 12: 00:00 AM EST [facility] ([facility]) Extended Individual Psychotherapy - 45 min 03/29/2020 12:00:00 AM EST - 03/29/2020 12:00:00 AM EST [facility] ([facility]) Extended Individual Psychotherapy - 45 min 0 12:00:00 AM EST [facility] ([facility]) Brief Individual Psychotherapy - 30 min 03/24/2020 12:00:00 AM EST - 03/24/2020 12:00:00 AM EST [facility] ([facility]) Brief Individual Psychotherapy - 30 min 03/24/2020 12: 00:00 AM EST [facility] ([facility]) Brief Individual Psychotherapy - 30 min 03/08/2020 12:00:00 AM EST - 03/08/2020 12:00:00 AM EST [facility] ([facility]) Brief Individual Psychotherapy - 30 min 03/08/2020 12: 00:00 AM EST [facility] ([facility]) Extended Individual Psychotherapy - 45 min 02/18/2020 12:00:00 AM EST - 02/18/2020 12:00:00 AM EST [facility] ([facility]) Extended Individual Psychotherapy - 45 min 0 12:00:00 AM EST [facility] ([facility]) Brief Individual Psychotherapy - 30 min 02/06/2020 12:00:00 AM EDT - 02/06/2020 12:00:00 AM EDT [facility] ([facility]) Brief Individual Psychotherapy - 30 min 02/05/2020 12: 00:00 AM EDT [facility] ([facility]) Brief Individual Psychotherapy - 30 min 02/05/2020 12:00:00 AM EDT - 02/05/2020 12:00:00 AM EDT [facility] ([facility]) Brief Individual Psychotherapy - 30 min 02/04/2020 12: 00:00 AM EDT [facility] ([facility]) Extended Individual Psychotherapy - 45 min 01/22/2020 12:00:00 AM EDT - 01/22/2020 12:00:00 AM EDT [facility] ([facility]) Extended Individual Psychotherapy - 45 min 0 12:00:00 AM EDT [facility] ([facility]) Extended Individual Psychotherapy - 45 min 01/06/2020 12:00:00 AM EDT - 01/06/2020 12:00:00 AM EDT [facility] ([facility]) Extended Individual Psychotherapy - 45 min 0 12:00:00 AM EDT [facility] ([facility]) Psychiatric Diagnostic Evaluation (Non-Medical) 12/17/2019 12:00:00 AM EDT - 12/17/2019 12:00:00 AM EDT [facility] ([facility]) Psychiatric Diagnostic Evaluation (Non-Medical) 2019 12:00:00 AM EDT [facility] ([facility]) Results ID Date Data Source [id number] 09/08/2019 09:45:53 AM EDT [facility] Current Problems: [place] teeth impaction (ICD-520.6) (ZVA28-L00.1)Current Medications: CLINDAMYCIN HCL 300 MG CAPS (CLINDAMYCIN [...] seen with previous antibiotics. [facility] [address] and advised pt. use use ice [...] procedures on this document.Assessment & Plan Problems:Added: [place] teeth impaction (ICD-520.6) (PIJ15-G15.1)Medications:CLINDAMYCIN HCL 300 MG CAPSMedication Changes:New Prescription:CLINDAMYCIN HCL 300 MG CAPS-1 every 6 hours until finished Qty: 28[Capsule] Refills: 0 Method: ElectronicAllergies:No Known Allergies (updated 09/08/2019) Orders:Oral Surgery Referral [[id number]] Name Value Range Interpretation Code Description Data Jonelle rce(s) Supporting Document(s) Procedure Social History Code Duration Value Status Description Data Source(s ) Smoking 05/21/2020 12:00:00 AM EST Unknown if ever smoked comp leted Unknown if ever smoked [facility] ([facility]) Smoking 05/20/2020 12:00:00 AM EST Unknown if ever smoked comp leted Unknown if ever smoked [facility] ([facility]) Smoking 05/17/2020 12:00:00 AM EST Unknown if ever smoked comp leted Unknown if ever smoked [facility] ([facility]) Smoking 05/14/2020 12:00:00 AM EST Unknown if ever smoked comp leted Unknown if ever smoked [facility] ([facility]) Smoking 05/07/2020 12:00:00 AM EST Unknown if ever smoked comp leted Unknown if ever smoked [facility] ([facility]) Smoking 05/04/2020 12:00:00 AM EST Unknown if ever smoked comp leted Unknown if ever smoked [facility] ([facility]) Smoking 04/17/2020 12:00:00 AM EST Patient has never smoked co mpleted Patient has never smoked [facility] ([facility], [facility]) Smoking 04/09/2020 12:00:00 AM EST Unknown if ever smoked comp leted Unknown if ever smoked [facility] Smoking 03/29/2020 12:00:00 AM EST Unknown if ever smoked comp leted Unknown if ever smoked [facility] ([facility]) Smoking 03/24/2020 12:00:00 AM EST Unknown if ever smoked comp leted Unknown if ever smoked [facility] ([facility]) Smoking 03/08/2020 12:00:00 AM EST Unknown if ever smoked comp leted Unknown if ever smoked [facility] ([facility]) Smoking 02/18/2020 12:00:00 AM EST Unknown if ever smoked comp leted Unknown if ever smoked [facility] ([facility]) Smoking 02/06/2020 12:00:00 AM EDT Unknown if ever smoked comp leted Unknown if ever smoked [facility] ([facility]) Smoking 02/05/2020 12:00:00 AM EDT Unknown if ever smoked comp leted Unknown if ever smoked [facility] ([facility]) Smoking 01/22/2020 12:00:00 AM EDT Unknown if ever smoked comp leted Unknown if ever smoked [facility] ([facility]) Smoking 01/06/2020 12:00:00 AM EDT Unknown if ever smoked comp leted Unknown if ever smoked [facility] ([facility]) Smoking 12/17/2019 12:00:00 AM EDT Unknown if ever smoked comp leted Unknown if ever smoked [facility] ([facility]) Vital Signs ID Date Data Source UNK Name Value Range Interpretation Code Description Data Source(s) Body mass index (BMI) [Ratio] 25.8 kg/m2 25.8 k g/m2 [facility] ([facility]) Body weight 165.00 [lb_av] 165.00 [lb_av] [facility] T ([facility]) Body height 67 [in_i] 67 [in_i] [facility] ([facility]) 5'7" Body temperature 96.6 [degF] 96.6 [degF] [facility] ([facility] ) Body weight 160.00 [lb_av] 160.00 [lb_av] [facility] T ([facility], [facility]) Body temperature 98.0 [degF] 98.0 [degF] [facility] ([facility], [facility]) Oxygen saturation in Arterial blood by Pulse oximetry 97 % 97 % [facility] ([facility], [facility]) Respiratory rate 18 /min 18 /min [facility] ( [facility], [facility]) Heart rate 92 /min 92 /min [facility] ([facility], [facility]) Diastolic blood pressure 85 mm[Hg] 85 mm[Hg] [facility] ([facility], [facility]) Systolic blood pressure 128 mm[Hg] 128 mm[Hg] [facility]) Body mass index (BMI) [Ratio] 26.6 kg/m2 26.6 k g/m2 [facility] ([facility], [facility]) Body height 67 [in_i] 67 [in_i] [facility] ([facility], [facility]) 5'7" Body weight 170.00 [lb_av] 170.00 [lb_av] [facility] T ([facility], [facility]) Body temperature 98.0 [degF] 98.0 [degF] [facility] ([facility], [facility]) Oxygen saturation in Arterial blood by Pulse oximetry 98 % 98 % [facility] ([facility], [facility]) Respiratory rate 15 /min 15 /min [facility] ( [facility], [facility]) Heart rate 83 /min 83 /min [facility] ([facility], [facility]) Diastolic blood pressure 78 mm[Hg] 78 mm[Hg] [facility], [facility]) Systolic blood pressure 114 mm[Hg] 114 mm[Hg] [facility] ([facility], [facility]) Body mass index (BMI) [Ratio] 26.9 kg/m2 26.9 k g/m2 [facility] ([facility], [facility]) Body height 67 [in_i] 67 [in_i] [facility] ([facility], [facility]) 5'7" Body weight 172.00 [lb_av] 172.00 [lb_av] MED[facility] T ([facility], [facility]) Body temperature 98.5 [degF] 98.5 [degF] [facility] ([facility], [facility]) Oxygen saturation in Arterial blood by Pulse oximetry 99 % 99 % [facility], [facility]) Heart rate 81 /min 81 /min [facility] ([facility], [facility]) Diastolic blood pressure 76 mm[Hg] 76 mm[Hg] [facility] ([facility], [facility]) Systolic blood pressure 112 mm[Hg] 112 mm[Hg] [facility] ([facility], [facility]) Body mass index (BMI) [Ratio] 26.3 kg/m2 26.3 k g/m2 [facility] ([facility], [facility]) Body height 67 [in_i] 67 [in_i] [facility] ([facility], [facility]) 5'7" Body weight 168.00 [lb_av] 168.00 [lb_av] MED[facility] T ([facility], [facility]) Body temperature 98.6 [degF] 98.6 [degF] [facility] ([facility], [facility]) Oxygen saturation in Arterial blood by Pulse oximetry 98 % 98 % [facility] ([facility], [facility]) Respiratory rate 17 /min 17 /min [facility] ( [facility], [facility]) Heart rate 73 /min 73 /min [facility] ([facility], [facility]) Diastolic blood pressure 84 mm[Hg] 84 mm[Hg] [facility] ([facility], [facility]) Systolic blood pressure 119 mm[Hg] 119 mm[Hg] [facility] ([facility], [facility])
--- NOTE | 2020-05-29 23:05 | REPVR ---
PROCEDURE INFORMATION: Exam: US First Trimester, Transabdominal Exam date and time: 05/29/2020 10:51 PM Age: 34 years old Clinical indication: Lmp or gestational age (in weeks): 03/25/2021; Other: Vaginal spotting; TECHNIQUE: Imaging protocol: Real-time transabdominal obstetrical ultrasound of the maternal pelvis and a first trimester , less than 14 weeks 0 days, with image documentation. COMPARISON: No relevant prior studies available. FINDINGS: Gestation: Gestational sac within the uterus with pole and yolk sac. Mean sac size is 13 mm suggesting an age of 6 weeks 1 day. Embryonic/ heart rate: No heartbeat is seen. Placenta: Unremarkable. No subchorionic bleed. Amniotic fluid: Amniotic fluid is normal for gestational age. BIOMETRY: Gestational age (AUA): Composite age is 6 weeks 1 day. The EDC is 01/21/2021. Vashon-Rump length: Vashon-rump length is 3.4 mm suggesting an age of 6 weeks 0 days. MATERNAL: Uterus: Unremarkable. Cervix: Unremarkable. Right adnexa: The right ovary is not seen. Left adnexa: The left ovary is not seen. Intraperitoneal space: No intraperitoneal free fluid. IMPRESSION: Single intrauterine gestation estimated at 6 weeks 1 day. The EDC is 01/21/2021. No heartbeat is identified. Although findings are viewed with suspicion for failed , findings are not diagnostic and follow-up in 1-2 weeks may be of benefit. Electronically signed by: Steven Gates On 05/29/2020 23:05:47 PM
[2020-05-29 23:37] VITALS: BP 136/78
== END 2020-05-29 23:41 | disposition home or self-care (01) ==
LOC: M ED 20:49
DX: O20.0 Threatened abortion (principal)

== ENCOUNTER 2020-06-02 08:51 | Emergency (ER) | payer BC ==
[~2020-06-02] VITALS: Ht 170.2 cm; Wt 76.4 kg
--- OUTSIDE RECORDS SUMMARY | 2020-06-02 08:59 | CCD ---
Author Author [facility] Organization [facility] Address Unknown Phone Unavailable Care Team Providers Care [employer] Courtesy Clerk Name Role Phone [facility] Unavailable Unavailable Anai Blood Unavailable Tellez, Judith SOIL TECHNICIAN Unavailable Unavailable Tellez, Judith SOIL TECHNICIAN Unavailable Unavailable Tellez, Judith SOIL TECHNICIAN Unavailable Unavailable Tellez, Judith SOIL TECHNICIAN Unavailable Unavailable Tellez, Judith SOIL TECHNICIAN Unavailable Unavailable Tellez, Judith SOIL TECHNICIAN Unavailable Unavailable Tellez, Judith SOIL TECHNICIAN Unavailable Unavailable Tellez, Judith SOIL TECHNICIAN Unavailable Unavailable Tellez, Judith SOIL TECHNICIAN Unavailable Unavailable Tellez, Judith SOIL TECHNICIAN Unavailable Unavailable Tellez, Judith SOIL TECHNICIAN Unavailable Unavailable Quinteros, Adiel Unavailable Unavailable Quinteros, [...] is protected by Article 27-F of the [place] State Public Health law. If you continue you may have access to information: Regarding HIV / AIDS; Provided by facilities licensed or operated by the [facility] Office of Mental Health; or Provided by the [facility] Office for People With Developmental Disabilities. If such information is present, then the following [facility] mandated warning applies: This information has been [...] Psychotherapy - 45 min Attender: Anai Blood [facility] 05/21/2020 04:30:00 AM EST - 05/21/2020 04:30:00 AM EST [facility] ([facility]) Attender: Anai Blood 05/21/2020 12:00:00 AM EST [facility] ([facility]) Attender: Anai Blood 05/20/2020 12:00:00 AM EST [facility] ([facility]) Extended Individual Psychotherapy - 45 min Attender: Anai Blood [facility] 05/19/2020 05:15:00 AM EST - 05/19/2020 05:15:00 AM EST [facility] ([facility]) Brief Individual Psychotherapy - 30 min Attender: Anai du [facility] 05/17/2020 02:30:00 AM EST - 05/17/2020 02:30:00 AM EST [facility] ([facility]) Attender: Anai Blood 05/17/2020 12:00:00 AM EST [facility] ([facility]) Attender: Anai Blood 05/14/2020 12:00:00 AM EST [facility] ([facility]) Outpatient Attender: Adiel [facility] 05/13/2020 07:00:0 0 AM EST [facility] ([facility] ) Extended Individual Psychotherapy - 45 min Attender: Anai Blood [facility] 05/12/2020 03:30:00 AM EST - 05/12/2020 03:30:00 AM EST [facility] ([facility]) Attender: Anai Blood 05/07/2020 12:00:00 AM EST [facility] ([facility]) Extended Individual Psychotherapy - 45 min Attender: Anai Blood [facility] 05/05/2020 05:00:00 AM EST - 05/05/2020 05:00:00 AM EST [facility] ([facility]) TEMPMHCTelemed-Crisis Brief Attender: Anai Lozoya renetta [facility] 05/04/2020 09:40:00 AM EST - 05/04/2020 09:40:00 AM EST [facility] ([facility]) Attender: Anai Blood 05/04/2020 12:00:00 AM EST [facility] ([facility]) Outpatient Attender: Luci rojas 04/17/2020 02:10:00 PM EST [facility] ([facility]) Outpatient Attender: Judith godwin 04/14/2020 04:40:00 PM EST [facility] ([facility]) Attender: Anai Blood 04/09/2020 12:00:00 AM EST [facility] ([facility]) Brief Individual Psychotherapy - 30 min Attender: Anai du [facility] 04/07/2020 07:30:00 AM EST - 04/07/2020 07:30:00 AM EST [facility] ([facility]) Extended Individual Psychotherapy - 45 min Attender: Anai Blood [facility] 03/29/2020 03:00:00 AM EST - 03/29/2020 03:00:00 AM EST [facility] ([facility]) Attender: Anai Blood 03/29/2020 12:00:00 AM EST [facility] ([facility]) Brief Individual Psychotherapy - 30 min Attender: Anai du [facility] 03/24/2020 07:30:00 AM EST - 03/24/2020 07:30:00 AM EST [facility] ([facility]) Attender: Anai Blood 03/24/2020 12:00:00 AM EST [facility] ([facility]) Brief Individual Psychotherapy - 30 min Attender: Anai Lawson du [facility] 03/08/2020 04:00:00 AM EST - 03/08/2020 04:00:00 AM EST [facility] ([facility]) Attender: Anai Blood 03/08/2020 12:00:00 AM EST [facility] ([facility]) Extended Individual Psychotherapy - 45 min Attender: Anai Blood [facility] 02/18/2020 03:00:00 AM EST - 02/18/2020 03:00:00 AM EST [facility] ([facility]) Attender: Anai Blood 02/18/2020 12:00:00 AM EST [facility] ([facility]) Attender: Anai Blood 02/06/2020 12:00:00 AM EDT [facility] ([facility]) Brief Individual Psychotherapy - 30 [facility] 04:00:00 AM EDT - 02/05/2020 04:00:00 AM EDT [facility] ([facility]) Attender: Anai Blood 02/05/2020 12:00:00 AM EDT [facility] ([facility]) Brief Individual Psychotherapy - 30 min Attender: Anai Pathak florian [facility] 02/04/2020 07:00:00 AM EDT - 02/04/2020 07:00:00 AM EDT [facility] ([facility]) Attender: Anai Blood 01/22/2020 12:00:00 AM EDT [facility] ([facility]) Extended Individual Psychotherapy - 45 min Attender: Anai Blood [facility] 01/21/2020 01:45:00 AM EDT - 01/21/2020 01:45:00 AM EDT [facility] ([facility]) Attender: Anai Blood 01/06/2020 12:00:00 AM EDT [facility] ([facility]) Extended Individual Psychotherapy - 45 min Attender: Anai Blood [facility] 01/05/2020 02:00:00 AM EDT - 01/05/2020 02:00:00 AM EDT [facility] ([facility]) Psychiatric Diagnostic Evaluation (Non-Medical) Attender: Aamir friedmanhumera Blood [facility] 12/17/2019 05:00:00 AM EDT - 12/17/2019 05:00:00 AM EDT [facility] ([facility]) Attender: Anai Jeremi 12/17/2019 12:00:00 AM EDT [facility] ([facility]) Outpatient Attender: Judith godwin 12/16/2019 11:15:00 AM EDT [facility] ([facility]) Outpatient Attender: [facility] 12/03/2019 01:39:[address] [facility] Outpatient Attender: [facility] 12/03/2019 01:38:[address] [facility] Outpatient Attender: [facility] 09/09/2019 05:02:[address] [facility] Outpatient Attender: [facility] 09/08/2019 10:57:[address] [facility] Outpatient Attender: [facility] 09/08/2019 10:44:[address] [facility] Outpatient Attender: [facility] 09/08/2019 10:44:[address] [facility] 10:10:[address] [facility]/08/[facility] 10:08:[address] [facility] Outpatient Attender: [facility] 09/08/2019 09:49:[address] [facility] 09/08/[facility] 09:48:[address] [facility] Outpatient Att[facility]: [facility] 09/08/2019 09:47:[address] [facility] Outpatient Attender: [facility] 09/08/2019 09:17:[address] [facility] Outpatient Attender: Judith Tellez NP Kendra godwin 09/05/2019 05:05:00 PM EDT [facility] ([facility]) Medications Medication Brand Name Start Date [...] 04/17/2020 12:00:00 AM EST ORAL active [facility] ([facility]) No Active Medications 04/14/2020 12:00:00 AM EST completed [facility] ([facility]) Cyclobenzaprine hydrochloride 5 MG Oral [...] Prednisone 12/16/2019 12:00:00 AM EDT completed [facility] ([facility]) Cyclobenzaprine hydrochloride 5 MG Oral Tablet Cyclobenzapri ne HCL 12/16/2019 12:00:00 AM EDT ORAL completed [facility] ([facility]) 300 mg 09/08/2019 12:00:00 AM EDT capsule 28 TAKE ONE CAPSULE BY MOUTH EVERY 6 HOURS WITH FOOD UNTIL GONE TAKE ONE CAPSULE BY MOUTH EVERY 6 HOURS WITH FOOD UNTIL GONE SOLD: 09/08/2019 [facility]uprofen 800 MG Oral Tablet Ibuprofen 09/05/2019 12:00:00 AM EDT ORAL completed [facility] ([facility]) Amoxicillin 875 MG / Clavulanate 125 MG Oral Tablet Am oxicillin/Clavulanate Potassium 09/05/2019 12:00:00 AM EDT ORAL completed [facility] ([facility]) 800 mg 09/05/2019 12:00:00 AM [...] to carrion Policy [place] Plan Information BCBS [facility] PPO 302/307 [id number] SP [id number] [facility] [id number] SP [id number] BCBS [facility] [id number] SP [id number] EXCELLUS BCBS B [id number] S [id number] BCBS 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 [id number] SP [id number] Excellus BCBS P [id number] S [id number] D [employer] S [id number] S [id number] D Excellus BCBS Dental P [id number] S [id number] Self Pay P UNAVAILABLE S UNAVAILA BLE SELF PAY UNAVAILABLE S UNAVAILA BLE AMNA [id number] SP [id number] Problems, Conditions, and Diagnoses Code Display Name Description Problem Type Effective Dates Data Source(s) F33.9 Major depressive disorder, recurrent, un specified Major Depressive Disorder, Recurrent episode, Unspecified Condition 05/20/2020 12:00:00 AM EST [facility] ([facility]) 520.6 [place] teeth impaction [place] teeth impaction 09/08/2019 10:43:[address] [facility] Surgeries/Procedures Procedure Description Date Indications Data Source(s) Extended Individual Psychotherapy - 45 min 05/21/2020 12:00:00 AM EST - 05/21/2020 12:00:00 AM EST [facility] ([facility]) Extended Individual Psychotherapy - 45 min 12:00:00 AM EST [facility] ([facility]) Extended Individual Psychotherapy - 45 min 05/20/2020 12:00:00 AM EST - 05/20/2020 12:00:00 AM EST [facility] ([facility]) Extended Individual Psychotherapy - 45 min 12:00:00 AM EST [facility] ([facility]) Brief Individual Psychotherapy - 30 min 05/17/2020 12:00:00 AM EST - 05/17/2020 12:00:00 AM EST [facility] ([facility]) Brief Individual Psychotherapy - 30 min 05/17/2020 12: 00:00 AM EST [facility] ([facility]) Extended Individual Psychotherapy - 45 min 05/14/2020 12:00:00 AM EST - 05/14/2020 12:00:00 AM EST [facility] ([facility]) Extended Individual Psychotherapy - 45 min 12:00:00 AM EST [facility] ([facility]) Extended Individual Psychotherapy - 45 min 05/07/2020 12:00:00 AM EST - 05/07/2020 12:00:00 AM EST [facility] ([facility]) Extended Individual Psychotherapy - 45 min 12:00:00 AM EST [facility] ([facility]) TEMPMHCTelemed-Crisis Brief 05/04/2020 1 2:00:00 AM EST - 05/04/2020 12:00:00 AM EST [facility] ([facility]) TEMPMHCTelemed-Crisis Brief 05/04/2020 12:00:00 AM EST [facility] ([facility]) Brief Individual Psychotherapy - 30 min 04/09/2020 12:00:00 AM EST - 04/09/2020 12:00:00 AM EST [facility] ([facility]) Brief Individual Psychotherapy - 30 min 04/07/2020 12: 00:00 AM EST [facility] ([facility]) Extended Individual Psychotherapy - 45 min 03/29/2020 12:00:00 AM EST - 03/29/2020 12:00:00 AM EST [facility] ([facility]) Extended Individual Psychotherapy - 45 min 0 12:00:00 AM EST [facility] ([facility]) Brief Individual Psychotherapy - 30 min 03/24/2020 12:00:00 AM EST - 03/24/2020 12:00:00 AM EST [facility] ([facility]) Brief Individual Psychotherapy - 30 min 03/24/2020 12: 00:00 AM EST [facility] ([facility]) Brief Individual Psychotherapy - 30 min 03/08/2020 12:00:00 AM EST - 03/08/2020 12:00:00 AM EST [facility] ([facility]) Brief Individual Psychotherapy - 30 min 03/08/2020 12: 00:00 AM EST [facility] ([facility]) Extended Individual Psychotherapy - 45 min 02/18/2020 12:00:00 AM EST - 02/18/2020 12:00:00 AM EST [facility] ([facility]) Extended Individual Psychotherapy - 45 min 0 12:00:00 AM EST [facility] ([facility]) Brief Individual Psychotherapy - 30 min 02/06/2020 12:00:00 AM EDT - 02/06/2020 12:00:00 AM EDT [facility] ([facility]) Brief Individual Psychotherapy - 30 min 02/05/2020 12: 00:00 AM EDT [facility] ([facility]) Brief Individual Psychotherapy - 30 min 02/05/2020 12:00:00 AM EDT - 02/05/2020 12:00:00 AM EDT [facility] ([facility]) Brief Individual Psychotherapy - 30 min 02/04/2020 12: 00:00 AM EDT [facility] ([facility]) Extended Individual Psychotherapy - 45 min 01/22/2020 12:00:00 AM EDT - 01/22/2020 12:00:00 AM EDT [facility] ([facility]) Extended Individual Psychotherapy - 45 min 0 12:00:00 AM EDT [facility] ([facility]) Extended Individual Psychotherapy - 45 min 01/06/2020 12:00:00 AM EDT - 01/06/2020 12:00:00 AM EDT [facility] ([facility]) Extended Individual Psychotherapy - 45 min 0 12:00:00 AM EDT [facility] ([facility]) Psychiatric Diagnostic Evaluation (Non-Medical) 12/17/2019 12:00:00 AM EDT - 12/17/2019 12:00:00 AM EDT [facility] ([facility]) Psychiatric Diagnostic Evaluation (Non-Medical) 2019 12:00:00 AM EDT [facility] ([facility]) Results ID Date Data Source [id number] 09/08/2019 09:45:[address] [facility] Current Problems: [place] teeth impaction (ICD-520.6) (JYP42-E32.1)Current Medications: CLINDAMYCIN HCL 300 MG CAPS (CLINDAMYCIN [...] seen with previous antibiotics. Placed prescription to [facility] on [address] and advised pt. use use ice [...] procedures on this document.Assessment & Plan Problems:Added: [place] teeth impaction (ICD-520.6) (BZS64-V95.1)Medications:CLINDAMYCIN HCL 300 MG CAPSMedication Changes:New Prescription:CLINDAMYCIN HCL 300 MG CAPS-1 every 6 hours until finished Qty: 28[Capsule] Refills: 0 Method: ElectronicAllergies:No Known Allergies (updated 09/08/2019) Orders:Oral Surgery Referral [[id number]] Name Value Range Interpretation Code Description Data Jonelle rce(s) Supporting Document(s) Procedure Social History Code Duration Value Status Description Data Source(s ) Smoking 05/21/2020 12:00:00 AM EST Unknown if ever smoked comp leted Unknown if ever smoked [facility] ([facility]) Smoking 05/20/2020 12:00:00 AM EST Unknown if ever smoked comp leted Unknown if ever smoked [facility] ([facility]) Smoking 05/17/2020 12:00:00 AM EST Unknown if ever smoked comp leted Unknown if ever smoked [facility] ([facility]) Smoking 05/14/2020 12:00:00 AM EST Unknown if ever smoked comp leted Unknown if ever smoked [facility] ([facility]) Smoking 05/07/2020 12:00:00 AM EST Unknown if ever smoked comp leted Unknown if ever smoked [facility] ([facility]) Smoking 05/04/2020 12:00:00 AM EST Unknown if ever smoked comp leted Unknown if ever smoked [facility] ([facility]) Smoking 04/17/2020 12:00:00 AM EST Patient has never smoked co mpleted Patient has never smoked [facility] ([facility]) Smoking 04/09/2020 12:00:00 AM EST Unknown if ever smoked comp leted Unknown if ever smoked [facility] ([facility]) Smoking 03/29/2020 12:00:00 AM EST Unknown if ever smoked comp leted Unknown if ever smoked [facility] ([facility]) Smoking 03/24/2020 12:00:00 AM EST Unknown if ever smoked comp leted Unknown if ever smoked [facility] ([facility]) Smoking 03/08/2020 12:00:00 AM EST Unknown if ever smoked comp leted Unknown if ever smoked [facility] ([facility]) Smoking 02/18/2020 12:00:00 AM EST Unknown if ever smoked comp leted Unknown if ever smoked [facility] ([facility]) Smoking 02/06/2020 12:00:00 AM EDT Unknown if ever smoked comp leted Unknown if ever smoked [facility] ([facility]) Smoking 02/05/2020 12:00:00 AM EDT Unknown if ever smoked comp leted Unknown if ever smoked [facility] ([facility]) Smoking 01/22/2020 12:00:00 AM EDT Unknown if ever smoked comp leted Unknown if ever smoked [facility] ([facility]) Smoking 01/06/2020 12:00:00 AM EDT Unknown if ever smoked comp leted Unknown if ever smoked [facility] ([facility]) Smoking 12/17/2019 12:00:00 AM EDT Unknown if ever smoked comp leted Unknown if ever smoked [facility] ([facility]) Vital Signs ID Date Data Source UNK Name Value Range Interpretation Code Description Data Source(s) Body mass index (BMI) [Ratio] 25.8 kg/m2 25.8 k g/m2 [facility] ([facility]) Body weight 165.00 [lb_av] 165.00 [lb_av] [facility] T ([facility]) Body height 67 [in_i] 67 [in_i] [facility] ([facility]) 5'7" Body temperature 96.6 [degF] 96.6 [degF] [facility] ([facility] ) Body weight 160.00 [lb_av] 160.00 [lb_av] [facility] T ([facility]) Body temperature 98.0 [degF] 98.0 [degF] [facility] ([facility]) Oxygen saturation in Arterial blood by Pulse oximetry 97 % 97 % [facility] ([facility]) Respiratory rate 18 /min 18 /min [facility] ( [facility]) Heart rate 92 /min 92 /min [facility] ([facility]) Diastolic blood pressure 85 mm[Hg] 85 mm[Hg] [facility] ([facility]) Systolic blood pressure 128 mm[Hg] 128 mm[Hg] [facility]) Body mass index (BMI) [Ratio] 26.6 kg/m2 26.6 k g/m2 [facility] ([facility]) Body height 67 [in_i] 67 [in_i] [facility] ([facility]) 5'7" Body weight 170.00 [lb_av] 170.00 [lb_av] [facility] T ([facility]) Body temperature 98.0 [degF] 98.0 [degF] [facility] ([facility]) Oxygen saturation in Arterial blood by Pulse oximetry 98 % 98 % [facility] ([facility]) Respiratory rate 15 /min 15 /min [facility] ( [facility]) Heart rate 83 /min 83 /min [facility] ([facility]) Diastolic blood pressure 78 mm[Hg] 78 mm[Hg] [facility]) Systolic blood pressure 114 mm[Hg] 114 mm[Hg] [facility]) Body mass index (BMI) [Ratio] 26.9 kg/m2 26.9 k g/m2 [facility] ([facility]) Body height 67 [in_i] 67 [in_i] [facility] ([facility]) 5'7" Body weight 172.00 [lb_av] 172.00 [lb_av] [facility] T ([facility], [facility]) Body temperature 98.5 [degF] 98.5 [degF] [facility] ([facility]) Oxygen saturation in Arterial blood by Pulse oximetry 99 % 99 % [facility] ([facility]) Heart rate 81 /min 81 /min [facility] ([facility]) Diastolic blood pressure 76 mm[Hg] 76 mm[Hg] [facility] ([facility]) Systolic blood pressure 112 mm[Hg] 112 mm[Hg] [facility] ([facility]) Body mass index (BMI) [Ratio] 26.3 kg/m2 26.3 k g/m2 [facility] ([facility], [facility]) Body height 67 [in_i] 67 [in_i] [facility] ([facility]) 5'7" Body weight 168.00 [lb_av] 168.00 [lb_av] [facility] T ([facility]) Body temperature 98.6 [degF] 98.6 [degF] [facility]) Oxygen saturation in Arterial blood by Pulse oximetry 98 % 98 % [facility] ([facility]) Respiratory rate 17 /min 17 /min [facility] ( [facility]) Heart rate 73 /min 73 /min [facility] ([facility], [facility]) Diastolic blood pressure 84 mm[Hg] 84 mm[Hg] [facility] ([facility]) Systolic blood pressure 119 mm[Hg] 119 mm[Hg] [facility] ([facility], [facility])
--- OUTSIDE RECORDS SUMMARY | 2020-06-02 09:44 | CCD ---
Author Author [facility] Organization [facility] Address Unknown Phone Unavailable Care Team Providers Care B2B Outside Sales Representative Name Role Phone [facility] Unavailable Unavailable Anai Blood Unavailable Tellez, Judith MARKETING AGENT Unavailable Unavailable Tellez, Judith MARKETING AGENT Unavailable Unavailable Tellez, Judith MARKETING AGENT Unavailable Unavailable Tellez, Judith MARKETING AGENT Unavailable Unavailable Tellez, Judith MARKETING AGENT Unavailable Unavailable Tellez, Judith MARKETING AGENT Unavailable Unavailable Tellez, Judith MARKETING AGENT Unavailable Unavailable Tellez, Judith MARKETING AGENT Unavailable Unavailable Tellez, Judith MARKETING AGENT Unavailable Unavailable Tellez, Judith MARKETING AGENT Unavailable Unavailable Tellez, Judith MARKETING AGENT Unavailable Unavailable Quinteros, Adiel Unavailable Unavailable Quinteros, Adiel Unavailable Unavailable Quinteros, Adiel Unavailable Unavailable Quinteros, Adiel Unavailable Unavailable Quinteros, Adile Unavailable Unavailable Quinteros, Adiel Unavailable Unavailable Quinteros, [...] by facilities licensed or operated by the [facility] Office of Mental Health; or Provided by the [facility] Office for People With Developmental Disabilities. If such information is present, then the following [facility] mandated warning applies: This information has been [...] law may result in a fine or fpc sentence or both. A general authorization for the release of medical or other information is NOT sufficient authorization for further disc losure. Encounters Encounter Providers Location Date Indications Data Source(s ) Extended Individual Psychotherapy - 45 min Attender: Anai Blood [facility] 05/21/2020 04:30:00 AM EST - 05/21/2020 04:30:00 AM EST [facility] ([facility]) Attender: Anai Blood 05/21/2020 12:00:00 AM EST [facility] ([facility]) Attender: Anai Blood 05/20/2020 12:00:00 AM EST [facility] ([facility]) Extended Individual Psychotherapy - 45 min Attender: Anai Blood [facility] 05/19/2020 05:15:00 AM EST - 05/19/2020 05:15:00 AM EST [facility] ([facility]) Brief Individual Psychotherapy - 30 min Attender: Anai du [facility] 05/17/2020 02:30:00 AM EST - 05/17/2020 02:30:00 AM EST [facility] ([facility]) Attender: Anai Blood 05/17/2020 12:00:00 AM EST [facility] ([facility]) Attender: Anai Blood 05/14/2020 12:00:00 AM EST [facility] ([facility]) Outpatient Attender: Adiel Quinteros [facility] 05/13/2020 07:00:0 0 AM EST [facility] ([facility]) Extended Individual Psychotherapy - 45 min Attender: Anai Blood [facility] 05/12/2020 03:30:00 AM EST - 05/12/2020 03:30:00 AM EST [facility] ([facility]) Attender: Anai Blood 05/07/2020 12:00:00 AM EST [facility] ([facility]) Extended Individual Psychotherapy - 45 min Attender: Anai Blood [facility] 05/05/2020 05:00:00 AM EST - 05/05/2020 05:00:00 AM EST [facility] ([facility]) TEMPMHCTelemed-Crisis Brief Attender: Anai Lozoya renetta [facility] 05/04/2020 09:40:00 AM EST - 05/04/2020 09:40:00 AM EST [facility] ([facility]) Attender: Anai Blood 05/04/2020 12:00:00 AM EST [facility] ([facility]) Outpatient Attender: Luci rojas 04/17/2020 02:10:00 PM EST [facility] ([facility]) Outpatient Attender: Judith godwin 04/14/2020 04:40:00 PM EST [facility] ([facility]) Attender: Anai Blood 04/09/2020 12:00:00 AM EST [facility] ([facility]) Brief Individual Psychotherapy - 30 min Attender: Anai du [facility] 04/07/2020 07:30:00 AM EST - 04/07/2020 07:30:00 AM EST [facility] ([facility]) Extended Individual Psychotherapy - 45 min Attender: Anai Blood [facility] 03/29/2020 03:00:00 AM EST - 03/29/2020 03:00:00 AM EST [facility] ([facility]) Attender: Anai Blood 03/29/2020 12:00:00 AM EST [facility] ([facility]) Brief Individual Psychotherapy - 30 min Attender: Anai du [facility] 03/24/2020 07:30:00 AM EST - 03/24/2020 07:30:00 AM EST [facility] ([facility]) Attender: Anai Blood 03/24/2020 12:00:00 AM EST [facility] ([facility]) Brief Individual Psychotherapy - 30 min Attender: Anai Lawson du [facility] 03/08/2020 04:00:00 AM EST - 03/08/2020 04:00:00 AM EST [facility] ([facility]) Attender: Anai Blood 03/08/2020 12:00:00 AM EST [facility] ([facility]) Extended Individual Psychotherapy - 45 min Attender: Anai Blood [facility] 02/18/2020 03:00:00 AM EST - 02/18/2020 03:00:00 AM EST [facility] ([facility]) Attender: Anai Blood 02/18/2020 12:00:00 AM EST [facility] ([facility]) Attender: Anai Blood 02/06/2020 12:00:00 AM EDT [facility] ([facility]) Brief Individual Psychotherapy - 30 min Attender: Anai du [facility] 02/05/2020 04:00:00 AM EDT - 02/05/2020 04:00:00 AM EDT [facility] ([facility]) Attender: Anai Blood 02/05/2020 12:00:00 AM EDT [facility] ([facility]) Brief Individual Psychotherapy - 30 min Attender: Anai Pathak florian [facility] 02/04/2020 07:00:00 AM EDT - 02/04/2020 07:00:00 AM EDT [facility] ([facility]) Attender: Anai Blood 01/22/2020 12:00:00 AM EDT [facility] ([facility]) Extended Individual Psychotherapy - 45 min Attender: Anai Blood [facility] 01/21/2020 01:45:00 AM EDT - 01/21/2020 01:45:00 AM EDT [facility] ([facility]) Attender: Anai Blood 01/06/2020 12:00:00 AM EDT [facility] ([facility]) Extended Individual Psychotherapy - 45 min Attender: Anai Blood [facility] 01/05/2020 02:00:00 AM EDT - 01/05/2020 02:00:00 AM EDT [facility] ([facility]) Psychiatric Diagnostic Evaluation (Non-Medical) Attender: Aamir friedmanhumera Blood [facility] 12/17/2019 05:00:00 AM EDT - 12/17/2019 05:00:00 AM EDT [facility] ([facility]) Attender: Anai Jeremi 12/17/2019 12:00:00 AM EDT [facility] ([facility]) Outpatient Attender: Judith godwin 12/16/2019 11:15:00 AM EDT [facility] ([facility]) Outpatient Attender: [facility] 12/03/2019 01:39:01 PM EDT [facility] Outpatient Attender: [facility] 12/03/2019 01:38:01 PM EDT [facility] Outpatient Attender: [facility] 09/09/2019 05:02:01 PM EDT [facility] Outpatient Attender: [facility] 09/08/2019 10:57:00 AM EDT [facility] Outpatient Attender: [facility] 09/08/2019 10:44:00 AM EDT [facility]patient Attender: [facility] 09/08/2019 10:44:00 AM EDT [facility] Outpatient Attender: [facility] 09/08/2019 10:10:01 AM EDT [facility] Outpatient Attender: [facility] 09/08/2019 10:08:01 AM EDT [facility] Outpatient Attender: [facility] 09/08/2019 09:49:01 AM EDT [facility] Outpatient Attender: [facility] 09/08/2019 09:48:00 AM EDT [facility] Outpatient Attender: [facility] 09/08/2019 09:47:01 AM EDT [facility] Outpatient Attender: [facility] 09/08/2019 09:17:00 AM EDT [facility] Outpatient Attender: Judith Tellez NP Kendra godwin 09/05/2019 05:05:00 PM EDT [facility] ([facility]) Medications Medication Brand Name Start Date [...] 04/17/2020 12:00:00 AM EST ORAL active [facility] ([facility]) No Active Medications 04/14/2020 12:00:00 AM EST completed [facility] ([facility]) Cyclobenzaprine hydrochloride 5 MG Oral Tablet [...] Prednisone 12/16/2019 12:00:00 AM EDT completed [facility] ([facility]) Cyclobenzaprine hydrochloride 5 MG Oral Tablet Cyclobenzapri ne HCL 12/16/2019 12:00:00 AM EDT ORAL completed [facility] ([facility]) 300 mg 09/08/2019 12:00:00 AM EDT capsule 28 TAKE ONE CAPSULE BY MOUTH EVERY 6 HOURS WITH FOOD UNTIL GONE TAKE ONE CAPSULE BY MOUTH EVERY 6 HOURS WITH FOOD UNTIL GONE SOLD: 09/08/2019 [facility] Ibuprofen 800 MG Oral Tablet Ibuprofen 09/05/2019 12:00:00 AM EDT ORAL completed [facility] ([facility]) Amoxicillin 875 MG / Clavulanate 125 MG Oral Tablet Am oxicillin/Clavulanate Potassium 09/05/2019 12:00:00 AM EDT ORAL completed [facility] ([facility]) 800 mg 09/05/2019 12:00:00 AM EDT [...] to carrion Policy [place] Plan Information BCBS [facility] [id number] SP [id number] BCBS [place] PPO [id number] SP [id number] BCBS [facility] [id number] SP [id number] EXCELLUS BCBS B [id number] S YNC [id number] BCBS 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 [id number] SP [id number] Excell[employer] BCBS P [id number] S YNC [id number] D [employer] S [id number] S [id number] D Excell[employer] BCBS Dental P [id number] S [id number] Self Pay P UNAVAILABLE S UNAVAILA BLE SELF PAY UNAVAILABLE S UNAVAILA BLE AMNA [id number] SP [id number] Problems, Conditions, and Diagnoses Code Display Name Description Problem Type Effective Dates Data Source(s) F33.9 Major depressive disorder, recurrent, un specified Major Depressive Disorder, Recurrent episode, Unspecified Condition 05/20/2020 12:00:00 AM EST [facility] ([facility]) 520.6 [place] teeth impaction [place] teeth impaction 09/08/2019 10:43:14 AM EDT [facility] Surgeries/Procedures Procedure Description Date Indications Data Source(s) Extended Individual Psychotherapy - 45 min 05/21/2020 12:00:00 AM EST - 05/21/2020 12:00:00 AM EST [facility] ([facility]) Extended Individual Psychotherapy - 45 min 12:00:00 AM EST [facility] ([facility]) Extended Individual Psychotherapy - 45 min 05/20/2020 12:00:00 AM EST - 05/20/2020 12:00:00 AM EST [facility] ([facility]) Extended Individual Psychotherapy - 45 min 12:00:00 AM EST [facility] ([facility]) Brief Individual Psychotherapy - 30 min 05/17/2020 12:00:00 AM EST - 05/17/2020 12:00:00 AM EST [facility] ([facility]) Brief Individual Psychotherapy - 30 min 05/17/2020 12: 00:00 AM EST [facility] ([facility]) Extended Individual Psychotherapy - 45 min 05/14/2020 12:00:00 AM EST - 05/14/2020 12:00:00 AM EST [facility] ([facility]) Extended Individual Psychotherapy - 45 min 12:00:00 AM EST [facility] ([facility]) Extended Individual Psychotherapy - 45 min 05/07/2020 12:00:00 AM EST - 05/07/2020 12:00:00 AM EST [facility] ([facility]) Extended Individual Psychotherapy - 45 min 12:00:00 AM EST [facility] ([facility]) TEMPMHCTelemed-Crisis Brief 05/04/2020 1 2:00:00 AM EST - 05/04/2020 12:00:00 AM EST [facility] ([facility]) TEMPMHCTelemed-Crisis Brief 05/04/2020 12:00:00 AM EST [facility] ([facility]) Brief Individual Psychotherapy - 30 min 04/09/2020 12:00:00 AM EST - 04/09/2020 12:00:00 AM EST [facility] ([facility]) Brief Individual Psychotherapy - 30 min 04/07/2020 12: 00:00 AM EST [facility] ([facility]) Extended Individual Psychotherapy - 45 min 03/29/2020 12:00:00 AM EST - 03/29/2020 12:00:00 AM EST [facility] ([facility]) Extended Individual Psychotherapy - 45 min 0 12:00:00 AM EST [facility] ([facility]) Brief Individual Psychotherapy - 30 min 03/24/2020 12:00:00 AM EST - 03/24/2020 12:00:00 AM EST [facility] ([facility]) Brief Individual Psychotherapy - 30 min 03/24/2020 12: 00:00 AM EST [facility] ([facility]) Brief Individual Psychotherapy - 30 min 03/08/2020 12:00:00 AM EST - 03/08/2020 12:00:00 AM EST [facility] ([facility]) Brief Individual Psychotherapy - 30 min 03/08/2020 12: 00:00 AM EST [facility] ([facility]) Extended Individual Psychotherapy - 45 min 02/18/2020 12:00:00 AM EST - 02/18/2020 12:00:00 AM EST [facility] ([facility]) Extended Individual Psychotherapy - 45 min 0 12:00:00 AM EST [facility] ([facility]) Brief Individual Psychotherapy - 30 min 02/06/2020 12:00:00 AM EDT - 02/06/2020 12:00:00 AM EDT [facility] ([facility]) Brief Individual Psychotherapy - 30 min 02/05/2020 12: 00:00 AM EDT [facility] ([facility]) Brief Individual Psychotherapy - 30 min 02/05/2020 12:00:00 AM EDT - 02/05/2020 12:00:00 AM EDT [facility] ([facility]) Brief Individual Psychotherapy - 30 min 02/04/2020 12: 00:00 AM EDT [facility] ([facility]) Extended Individual Psychotherapy - 45 min 01/22/2020 12:00:00 AM EDT - 01/22/2020 12:00:00 AM EDT [facility] ([facility]) Extended Individual Psychotherapy - 45 min 0 12:00:00 AM EDT [facility] ([facility]) Extended Individual Psychotherapy - 45 min 01/06/2020 12:00:00 AM EDT - 01/06/2020 12:00:00 AM EDT [facility] ([facility]) Extended Individual Psychotherapy - 45 min 0 12:00:00 AM EDT [facility] ([facility]) Psychiatric Diagnostic Evaluation (Non-Medical) 12/17/2019 12:00:00 AM EDT - 12/17/2019 12:00:00 AM EDT [facility] ([facility]) Psychiatric Diagnostic Evaluation (Non-Medical) 2019 12:00:00 AM EDT [facility] ([facility]) Results ID Date Data Source [id number] 09/08/2019 09:45:53 AM EDT [facility] Current Problems: [place] teeth impaction (ICD-520.6) (AHB84-M79.1)Current Medications: CLINDAMYCIN HCL 300 MG CAPS (CLINDAMYCIN HCL) 1 every 6 hours until finished; Route: ORAL Dental Chart: Procedures:Type - CDT Code - Description B - (D0330) Panoramic film (Performed by Garima Valdez DMD) B - (O3999) Unspecified preventive procedure, by report on Tooth # 1 (Performed by Garima Valdez DMD) B - (D0140) Limited oral evaluation - problem focused on Tooth # 1 (Performed by Garima Valdez DMD) C - (D1889) Unspecified preventive procedure, by report on Tooth [...] on Tooth # 1 (Performed by Garima Valdze DMD) T - (D7140) Extraction, erupted tooth [...] seen with previous antibiotics. Placed prescription to [facility] on [address] and advised pt. use use ice [...] procedures on this document.Assessment & Plan Problems:Added: [place] teeth impaction (ICD-520.6) (DJF64-G47.1)Medications:CLINDAMYCIN HCL 300 MG CAPSMedication Changes:New Prescription:CLINDAMYCIN HCL 300 MG CAPS-1 every 6 hours until finished Qty: 28[Capsule] Refills: 0 Method: ElectronicAllergies:No Known Allergies (updated 09/08/2019) Orders:Oral Surgery Referral [[id number]] Name Value Range Interpretation Code Description Data Jonelle rce(s) Supporting Document(s) Procedure Social History Code Duration Value Status Description Data Source(s ) Smoking 05/21/2020 12:00:00 AM EST Unknown if ever smoked comp leted Unknown if ever smoked [facility] ([facility]) Smoking 05/20/2020 12:00:00 AM EST Unknown if ever smoked comp leted Unknown if ever smoked [facility] ([facility]) Smoking 05/17/2020 12:00:00 AM EST Unknown if ever smoked comp leted Unknown if ever smoked [facility] ([facility]) Smoking 05/14/2020 12:00:00 AM EST Unknown if ever smoked comp leted Unknown if ever smoked [facility] ([facility]) Smoking 05/07/2020 12:00:00 AM EST Unknown if ever smoked comp leted Unknown if ever smoked [facility] ([facility]) Smoking 05/04/2020 12:00:00 AM EST Unknown if ever smoked comp leted Unknown if ever smoked [facility] ([facility]) Smoking 04/17/2020 12:00:00 AM EST Patient has never smoked co mpleted Patient has never smoked [facility] ([facility]) Smoking 04/09/2020 12:00:00 AM EST Unknown if ever smoked comp leted Unknown if ever smoked [facility] ([facility]) Smoking 03/29/2020 12:00:00 AM EST Unknown if ever smoked comp leted Unknown if ever smoked [facility] ([facility]) Smoking 03/24/2020 12:00:00 AM EST Unknown if ever smoked comp leted Unknown if ever smoked [facility] ([facility]) Smoking 03/08/2020 12:00:00 AM EST Unknown if ever smoked comp leted Unknown if ever smoked [facility] ([facility]) Smoking 02/18/2020 12:00:00 AM EST Unknown if ever smoked comp leted Unknown if ever smoked [facility] ([facility]) Smoking 02/06/2020 12:00:00 AM EDT Unknown if ever smoked comp leted Unknown if ever smoked [facility] ([facility]) Smoking 02/05/2020 12:00:00 AM EDT Unknown if ever smoked comp leted Unknown if ever smoked [facility] ([facility]) Smoking 01/22/2020 12:00:00 AM EDT Unknown if ever smoked comp leted Unknown if ever smoked [facility] ([facility]) Smoking 01/06/2020 12:00:00 AM EDT Unknown if ever smoked comp leted Unknown if ever smoked [facility] ([facility]) Smoking 12/17/2019 12:00:00 AM EDT Unknown if ever smoked comp leted Unknown if ever smoked [facility] ([facility]) Vital Signs ID Date Data Source UNK Name Value Range Interpretation Code Description Data Source(s) Body mass index (BMI) [Ratio] 25.8 kg/m2 25.8 k g/m2 [facility] ([facility]) Body weight 165.00 [lb_av] 165.00 [lb_av] [facility] T ([facility]) Body height 67 [in_i] 67 [in_i] [facility] ([facility]) 5'7" Body temperature 96.6 [degF] 96.6 [degF] [facility] ([facility] Body weight 160.00 [lb_av] 160.00 [lb_av] [facility] T ([facility]) Body temperature 98.0 [degF] 98.0 [degF] [facility] ([facility]) Oxygen saturation in Arterial blood by Pulse oximetry 97 % 97 % [facility] ([facility]) Respiratory rate 18 /min 18 /min [facility] ( [facility]) Heart rate 92 /min 92 /min [facility] ([facility]) Diastolic blood pressure 85 mm[Hg] 85 mm[Hg] [facility] ([facility]) Systolic blood pressure 128 mm[Hg] 128 mm[Hg] [facility] Body mass index (BMI) [Ratio] 26.6 kg/m2 26.6 k g/m2 [facility] ([facility]) Body height 67 [in_i] 67 [in_i] [facility] 5'7" Body weight 170.00 [lb_av] 170.00 [lb_av] [facility] T ([facility]) Body temperature 98.0 [degF] 98.0 [degF] [facility] ([facility]) Oxygen saturation in Arterial blood by Pulse oximetry 98 % 98 % [facility] ([facility]) Respiratory rate 15 /min 15 /min [facility] ( [facility]) Heart rate 83 /min 83 /min [facility] ([facility]) Diastolic blood pressure 78 mm[Hg] 78 mm[Hg] [facility]) Systolic blood pressure 114 mm[Hg] 114 mm[Hg] [facility]) Body mass index (BMI) [Ratio] 26.9 kg/m2 26.9 k g/m2 [facility]) Body height 67 [in_i] 67 [in_i] [facility] ([facility]) 5'7" Body weight 172.00 [lb_av] 172.00 [lb_av] MED[facility] T ([facility]) Body temperature 98.5 [degF] 98.5 [degF] [facility] ([facility]) Oxygen saturation in Arterial blood by Pulse oximetry 99 % 99 % [facility]) Heart rate 81 /min 81 /min [facility] ([facility]) Diastolic blood pressure 76 mm[Hg] 76 mm[Hg] [facility] ([facility]) Systolic blood pressure 112 mm[Hg] 112 mm[Hg] [facility] ([facility]) Body mass index (BMI) [Ratio] 26.3 kg/m2 26.3 k g/m2 [facility] ([facility]) Body height 67 [in_i] 67 [in_i] [facility] ([facility]) 5'7" Body weight 168.00 [lb_av] 168.00 [lb_av] [facility] T ([facility]) Body temperature 98.6 [degF] 98.6 [degF] [facility]) Oxygen saturation in Arterial blood by Pulse oximetry 98 % 98 % [facility]) Respiratory rate 17 /min 17 /min [facility] ( [facility]) Heart rate 73 /min 73 /min [facility] ([facility]) Diastolic blood pressure 84 mm[Hg] 84 mm[Hg] [facility] ([facility]) Systolic blood pressure 119 mm[Hg] 119 mm[Hg] [facility])
--- NOTE | 2020-06-02 10:27 | REP ---
INDICATION: threatened AB. COMPARISON: 05/29/2020. TECHNIQUE: Real-time sonographic evaluation of pelvis performed utilizing transabdominal technique. FINDINGS: The previously noted intrauterine gestational sac is not visualized on today's exam. Moderate complex fluid fills the endometrial cavity with scattered internal echoes. This likely represents blood products and probably some degree of products of conception. No gestational sac or pole is visualized. Uterus measures 10.2 x 4.7 x 5.6 cm. The ovaries could not be visualized. There is no gross adnexal mass or free fluid. IMPRESSION: Moderate complex fluid within the endometrial canal without a well-defined gestational sac, pole or yolk sac. The AP thickness is 20 mm. Findings are most consistent with diffuse blood products and possibly some products of conception within the endometrial canal, an in progress. <Electronically signed by Adrián Garcia > 06/02/20 1029
[2020-06-02 13:00] VITALS: BP 118/75
== END 2020-06-02 13:22 | disposition home or self-care (01) ==
LOC: M ED 08:51
DX: O03.4 Incomplete spontaneous abortion without complication (principal); Z79.899 Other long term (current) drug therapy

== ENCOUNTER → 2020-06-07 | Outpatient (CLI) | payer BC | LOC: M PLALAB 11:16 | PROVIDERS: ATTEND Obstetrics & Gynecology | DX: O02.1 Missed abortion (principal) ==

== ENCOUNTER → 2020-06-08 | Outpatient (REF) | payer BC | LOC: M LAB REF 16:25 | PROVIDERS: ATTEND Obstetrics & Gynecology | DX: O03.4 Incomplete spontaneous abortion without complication (principal) ==

== ENCOUNTER → 2020-06-14 | Outpatient (REF) | payer BC | LOC: M PLALAB 14:54 | PROVIDERS: ATTEND Advanced Practice Midwife | DX: O03.4 Incomplete spontaneous abortion without complication (principal) ==

== ENCOUNTER 2021-01-02 14:39 | Emergency (ER) | payer BC ==
[~2021-01-02] VITALS: Ht 170.2 cm; Wt 83.4 kg
[2021-01-02] MEDS ORDERED: BUPR300T92 (14:55)
--- NOTE | 2021-01-02 17:54 | REP ---
INDICATION: right lateral pain, redness r/o fb around head of 5th mt. COMPARISON: None. TECHNIQUE: AP and lateral views only assess for soft tissue foreign body laterally FINDINGS: There is no evidence of a radiopaque foreign body. There is no evidence of an osseous abnormality seen on this limited two view exam. IMPRESSION: No radiopaque foreign bodies identified. <Electronically signed by Chuy Nur > 01/02/21 [id number]
[2021-01-02] MEDS ORDERED: LIDOCAINE 1% MDV 20ML VIAL SC ONE (18:10)
[2021-01-02] MEDS ORDERED: BACT800T5 PO (18:42)
[2021-01-02] MEDS ORDERED: BACTRIM 160MG/800MG DS TAB PO ONE (18:45)
[2021-01-02] MEDS ORDERED: NEOSPORIN OINT 0.9 GM PKT TOP ONE (19:20)
[2021-01-02 19:26] VITALS: BP 131/63
== END 2021-01-02 19:27 | disposition home or self-care (01) ==
LOC: M ED 14:39
DX: L03.115 Cellulitis of right lower limb (principal)

== ENCOUNTER → 2021-05-10 | Outpatient (CLI) | payer BC ==
[~2021-05-10] MED LIST changes: +BACT800T5 PO; +BUPR300T92
== END ==
LOC: M PLALAB 08:37
PROVIDERS: ATTEND Obstetrics & Gynecology
DX: Z53.9 Procedure and treatment not carried out, unspecified reason (principal)

== ENCOUNTER → 2021-06-07 | Outpatient (CLI) | payer BC ==
[2021-06-07 10:24] LABS: HEMATOCRIT 37.7 % (36.0-47.0); MEAN CORPUSCULAR HEMOGLOBIN 31.5 pg (27.0-33.0); MEAN CORPUSCULAR HGB CONC 34.5 g/dl (32.0-36.5); MEAN CORPUSCULAR VOLUME 91.3 fl (80.0-96.0); PLATELET COUNT, AUTOMATED 231 10^3/uL (150-450); RED BLOOD COUNT 4.13 10^6/uL (4.00-5.40); WHITE BLOOD COUNT 7.7 10^3/uL (4.0-10.0)
[2021-06-07 12:16] LABS: HIV 1&2 SCREEN CENTAUR NEGATIVE (NEGATIVE)
[2021-06-07 12:46] LABS: GC DNA AMPLIFICATION NEGATIVE (NEGATIVE)
== END ==
LOC: M PLALAB 08:43
PROVIDERS: ATTEND Advanced Practice Midwife
DX: Z34.81 Encounter for supervision of other normal pregnancy, first trimester (principal)

== ENCOUNTER 2021-06-11 17:50 | Emergency (ER) | payer BC ==
[~2021-06-11] VITALS: Ht 170.2 cm; Wt 87.3 kg
[2021-06-11] MEDS ORDERED: ASPI81CH33 PO (18:00)
[2021-06-11 20:08] VITALS: BP 129/61
== END 2021-06-11 20:08 | disposition home or self-care (01) ==
LOC: M ED 17:50
DX: O26.892 Other specified pregnancy related conditions, second trimester (principal); S39.011A Strain of muscle, fascia and tendon of abdomen, initial encounter; Z3A.17 17 weeks gestation of pregnancy; R51.9 Headache, unspecified; F41.8 Other specified anxiety disorders; Y92.9 Unspecified place or not applicable; Y99.9 Unspecified external cause status; Y93.9 Activity, unspecified

== ENCOUNTER → 2021-08-29 | Outpatient (CLI) | payer BC ==
[~2021-08-29] MED LIST changes: +ASPI81CH33 PO
[2021-08-29 10:40] LABS: HEMATOCRIT 40.7 % (36.0-47.0); HEMOGLOBIN 13.8 g/dl (12.0-15.5); MEAN CORPUSCULAR HEMOGLOBIN 32.7 pg (27.0-33.0); MEAN CORPUSCULAR HGB CONC 33.9 g/dl (32.0-36.5); MEAN CORPUSCULAR VOLUME 96.4 fl (80.0-96.0); PLATELET COUNT, AUTOMATED 210 10^3/uL (150-450); RED BLOOD COUNT 4.22 10^6/uL (4.00-5.40); WHITE BLOOD COUNT 8.9 10^3/uL (4.0-10.0)
== END ==
LOC: M PLALAB 07:26
PROVIDERS: ATTEND Advanced Practice Midwife
DX: Z34.92 Encounter for supervision of normal pregnancy, unspecified, second trimester (principal)

== ENCOUNTER → 2021-10-17 | Outpatient (REF) | payer BC | LOC: M SMT 12:54 | PROVIDERS: ATTEND Obstetrics & Gynecology | DX: O09.523 Supervision of elderly multigravida, third trimester (principal) ==

== ENCOUNTER 2021-11-03 02:33 | Outpatient (CLI) | payer BC ==
[~2021-11-03] VITALS: Ht 170.2 cm; Wt 97.2 kg
[2021-11-03 02:42] VITALS: BP 142/93
[2021-11-03 03:07] VITALS: BP 129/82
[2021-11-03 04:03] VITALS: BP 140/87
[2021-11-03 05:30] VITALS: BP 132/87
[2021-11-03 06:33] VITALS: BP 136/86
== END 2021-11-03 07:03 | disposition home or self-care (01) ==
LOC: M LDO 02:33
PROVIDERS: ATTEND Advanced Practice Midwife
DX: O60.03 Preterm labor without delivery, third trimester (principal); O09.513 Supervision of elderly primigravida, third trimester; Z14.1 Cystic fibrosis carrier; Z3A.38 38 weeks gestation of pregnancy

== ENCOUNTER 2021-11-11 12:00 | Inpatient (IN) | payer BC ==
[~2021-11-11] VITALS: Ht 170.2 cm; Wt 97.2 kg
[2021-11-11] VITALS (16 sets, daily range): BP systolic 112–158; BP diastolic 64–106
[2021-11-11] MEDS ORDERED: HOME MED LIST COMPLETE! XX SCH (12:30)
[2021-11-11] MEDS ORDERED: LIDOCAINE 1% MDV 20ML VIAL INFIL PRN (13:55)
[2021-11-11] MEDS ORDERED: OXYTOCIN DRIP 30 UNITS in IV 1 EA IV PRN ×4 (13:55)
[2021-11-11] MEDS ORDERED: OXYTOCIN INJ 10 UNITS/ML VIAL (J2590) IM PRN (13:55)
[2021-11-11] MEDS ORDERED: TRANEXAMIC ACID INJection 1,000 MG in NS 100 ML IV PRN (13:55)
[2021-11-11] MEDS ORDERED: CARBOPROST TROMETHAMINE 250 MCG/ML AMP IM PRN (13:55)
[2021-11-11] MEDS ORDERED: miSOPROStol 50MCG 1/2 TABLET PO SCH (14:30)
[2021-11-11 14:48] LABS: HEMATOCRIT 40.5 % (36.0-47.0); MEAN CORPUSCULAR HEMOGLOBIN 32.3 pg (27.0-33.0); MEAN CORPUSCULAR HGB CONC 34.6 g/dl (32.0-36.5); MEAN CORPUSCULAR VOLUME 93.5 fl (80.0-96.0); PLATELET COUNT, AUTOMATED 210 10^3/uL (150-450); RED BLOOD COUNT 4.33 10^6/uL (4.00-5.40); WHITE BLOOD COUNT 9.3 10^3/uL (4.0-10.0)
[2021-11-11] MEDS ORDERED: SLF 3 ML SYR IV PRN (15:15)
[2021-11-11 15:26] LABS: ALT/SGPT 26 U/L (12-78); BILIRUBIN,TOTAL 0.4 MG/DL (0.2-1.0); CREATININE FOR GFR 0.46 MG/DL (0.55-1.30); GLOMERULAR FILTRATION RATE > 60.0 (>60); LDH LACTATE DEHYDROGENASE 192 U/L (84-246); URIC ACID 3.9 MG/DL (2.6-6.0)
[2021-11-11] MEDS ORDERED: OXYTOCIN DRIP 30 UNITS in IV 1 EA IV SCH (19:35)
[2021-11-11] MEDS: LR 1,000 ML IV SCH (19:48)
[2021-11-11] MEDS ORDERED: SLF 3 ML SYR IV SCH (22:00)
[2021-11-12] VITALS (55 sets, daily range): BP systolic 66–149; BP diastolic 44–103
[2021-11-12] MEDS: LR 1,000 ML IV SCH ×4 (00:24→19:00)
[2021-11-12] MEDS ORDERED: BUTORPHANOL 2 MG/ML INJ (J0595) IV ONE (01:15)
[2021-11-12] MEDS ORDERED: PROMETHAZINE 25MG/ML 1ML VIAL IV ONE (01:15)
[2021-11-12] MEDS ORDERED: FENTANYL 2MCG/ML ROPIVACAINE 0.2% IN 0.9% NACL 100ML IVBAG As Ordered ONE (08:48)
[2021-11-12] MEDS ORDERED: FENTANYL/ROPIVACAINE/NACL BAG 100 ML EPIDURAL SCH (09:00)
[2021-11-12] MEDS ORDERED: NALOXONE INJ 0.4MG/1ML VIAL (J2310 PER 1MG) IV PRN (09:00)
[2021-11-12] MEDS ORDERED: ePHEDrine SULFATE 25 MG/5 ML(5MG/ML) SYRINGE IVP PRN (09:00)
[2021-11-12] MEDS ORDERED: LR 500 ML IV PRN (09:00)
[2021-11-12] MEDS ORDERED: EPIDURAL/PCA KEYS XX PRN (09:00)
[2021-11-12] MEDS ORDERED: ONDANSETRON 4MG 2ML VIAL IV PRN ×2 (09:00→18:30)
[2021-11-12] MEDS ORDERED: diphenhydrAMINE 50MG/ML VIAL (J1200) IV PRN (09:00)
[2021-11-12] MEDS ORDERED: METHYLERGONOVINE MALEATE 0.2 MG/ML VIAL (J2210) IM STA (17:18)
[2021-11-12] MEDS ORDERED: DIBUCAINE 1% OINTMENT 30GM TOP PRN (18:30)
[2021-11-12] MEDS ORDERED: DOCUSATE SODIUM 100MG CAPSULE PO PRN (18:30)
[2021-11-12] MEDS ORDERED: IBUPROFEN 600MG TAB PO PRN (18:30)
[2021-11-12] MEDS ORDERED: ACETAMINOPHEN TAB 650MG DOSE (2X325MG) PO PRN (18:30)
[2021-11-12] MEDS ORDERED: METHYLERGONOVINE MALEATE 0.2 MG TAB PO PRN (18:30)
[2021-11-12] MEDS ORDERED: RHOGAM 300 MCG (1500 IU) INJ (J2790) IM SCH (18:30)
[2021-11-12] MEDS ORDERED: OXYTOCIN DRIP 30 UNITS in IV 1 EA IV SCH (19:00)
[2021-11-12] MEDS: ACETAMINOPHEN 500 MG TAB PO PRN (19:10)
[2021-11-12] MEDS: IBUPROFEN 800 MG TAB PO PRN (21:54)
[2021-11-13] MEDS: ACETAMINOPHEN 500 MG TAB PO PRN ×2 (03:27→13:58)
[2021-11-13 06:00] VITALS: BP 95/52
[2021-11-13] MEDS: LR 1,000 ML IV SCH (08:02)
[2021-11-13] MEDS: PRENATAL VITAMINS CHEWABLE TABLET PO SCH (09:37)
[2021-11-13] MEDS: IBUPROFEN 800 MG TAB PO PRN ×2 (09:37→18:50)
[2021-11-13 18:23] VITALS: BP 99/61
[2021-11-14 06:00] VITALS: BP 105/55
[2021-11-14] MEDS ORDERED: MEASLES,MUMPS,RUBELLA VACCINE INJ (MMR-II) (90707) SC.IMMUN ONE (09:00)
[2021-11-14] MEDS: PRENATAL VITAMINS CHEWABLE TABLET PO SCH (09:17)
== END 2021-11-14 14:19 | disposition home or self-care (01) | DRG 560 ==
LOC: M LDI 12:00 → M OBS 11-12 19:30
PROVIDERS: ADMIT Advanced Practice Midwife; ATTEND Advanced Practice Midwife
PROC: 3E033VJ Introduction of Other Hormone into Peripheral Vein, Percutaneous Approach (ICD-10-PCS; 2021-11-11)
PROC: 10E0XZZ Delivery of Products of Conception, External Approach (ICD-10-PCS; principal; 2021-11-12)
PROC: 0HQ9XZZ Repair Perineum Skin, External Approach (ICD-10-PCS; 2021-11-12)
DX: O70.0 First degree perineal laceration during delivery (principal); Z37.0 Single live birth; Z3A.39 39 weeks gestation of pregnancy; O09.523 Supervision of elderly multigravida, third trimester

== ENCOUNTER → 2022-01-08 | Outpatient (CLI) | payer BC | LOC: M LABSMTC 11:28 | PROVIDERS: ATTEND Anesthesiology | DX: Z01.812 Encounter for preprocedural laboratory examination (principal); Z20.822 Contact with and (suspected) exposure to COVID-19 ==

== ENCOUNTER 2022-01-11 10:49 | Day surgery (SDC) | payer BC ==
[~2022-01-11] VITALS: Ht 170.2 cm; Wt 93.9 kg
[~2022-01-11 10:49] MED LIST changes: +KETOROLAC 60MG 2ML VIAL As Ordered ONE; +LIDOCAINE 2% 100MG/5ML SDV (FOR ANES.) As Ordered ONE; +LR 1,000 ML IV SCH; +METOCLOPRAMIDE INJ 10MG/2ML VIAL As Ordered ONE; +NS 1,000 ML IV ONE; +ONDANSETRON 4MG 2ML VIAL As Ordered ONE; +ROCURONIUM BROMIDE 50MG/5ML VIAL As Ordered ONE; +SUGAMMADEX SODIUM 500 MG/5 ML VIAL (BRIDION) As Ordered ONE; +propofoL 200 MG/20 ML VIAL As Ordered ONE
[2022-01-11 11:20] LABS: HEMATOCRIT 41.3 % (36.0-47.0); HEMOGLOBIN 13.7 g/dl (12.0-15.5); MEAN CORPUSCULAR HEMOGLOBIN 31.1 pg (27.0-33.0); MEAN CORPUSCULAR HGB CONC 33.2 g/dl (32.0-36.5); MEAN CORPUSCULAR VOLUME 93.7 fl (80.0-96.0); PLATELET COUNT, AUTOMATED 244 10^3/uL (150-450); RED BLOOD COUNT 4.41 10^6/uL (4.00-5.40)
[2022-01-11 11:46] LABS: HCG, SERUM QUALITATIVE NEGATIVE (NEGATIVE)
[2022-01-11] MEDS ORDERED: MIDAZOLAM INJ 2MG/2ML VIAL (J2250 PER 1MG) As Ordered ONE (11:48)
[2022-01-11] MEDS ORDERED: fentaNYL 100 MCG/2 ML INJECTION As Ordered ONE (11:48)
[2022-01-11] MEDS ORDERED: ACETAMINOPHEN 1000MG 100ML IV BAG As Ordered ONE (12:19)
[2022-01-11] MEDS ORDERED: HYDROmorphone HCL 2MG/ML 1ML VIAL As Ordered ONE (12:20)
[2022-01-11] MEDS ORDERED: BUPIVACAINE HCL 0.25% 10ML VIAL As Ordered ONE (12:21)
[2022-01-11] MEDS ORDERED: propofoL 200 MG/20 ML VIAL As Ordered ONE (13:34)
[2022-01-11] MEDS ORDERED: oxyCODONE 5MG TAB PO PRN (13:40)
[2022-01-11] MEDS ORDERED: ONDANSETRON 4MG 2ML VIAL IV PRN (13:40)
[2022-01-11] MEDS ORDERED: fentaNYL 100 MCG/2 ML INJECTION IV PRN (13:40)
[2022-01-11] MEDS ORDERED: LR 1,000 ML IV SCH (13:40)
[2022-01-11] MEDS ORDERED: IBUP80TA PO (13:52)
[2022-01-11] MEDS ORDERED: COLA100C5 PO (13:53)
[2022-01-11] MEDS ORDERED: OXYC1TAB23 PO (13:53)
[2022-01-11 15:03] VITALS: BP 148/84
== END 2022-01-11 15:08 | disposition home or self-care (01) ==
LOC: M SDC 10:49
PROVIDERS: ATTEND Obstetrics & Gynecology
DX: Z30.2 Encounter for sterilization (principal); G43.909 Migraine, unspecified, not intractable, without status migrainosus; F43.10 Post-traumatic stress disorder, unspecified; F41.9 Anxiety disorder, unspecified; F32.A Depression, unspecified
CPT/HCPCS: 36415; 58661; 84703; 85027; 86850; 86900; 86901; 88302; J0131; J1100; J1170; J1885; J2250; J2405; J2765; J3010

== ENCOUNTER 2022-11-11 08:18 | Emergency (ER) | payer BC ==
[~2022-11-11] VITALS: Ht 170.2 cm; Wt 92.1 kg
[2022-11-11 08:18] VITALS: TEMP 97.6; O2SAT 97
[~2022-11-11 08:18] MED LIST changes: +COLA100C5 PO; +IBUP80TA PO; -KETOROLAC 60MG 2ML VIAL As Ordered ONE; -LIDOCAINE 2% 100MG/5ML SDV (FOR ANES.) As Ordered ONE; -LR 1,000 ML IV SCH; -METOCLOPRAMIDE INJ 10MG/2ML VIAL As Ordered ONE; -NS 1,000 ML IV ONE; -ONDANSETRON 4MG 2ML VIAL As Ordered ONE; +OXYC1TAB23 PO; -ROCURONIUM BROMIDE 50MG/5ML VIAL As Ordered ONE; -SUGAMMADEX SODIUM 500 MG/5 ML VIAL (BRIDION) As Ordered ONE; -propofoL 200 MG/20 ML VIAL As Ordered ONE
[2022-11-11 09:04] VITALS: BP 134/77
== END 2022-11-11 09:08 | disposition home or self-care (01) ==
LOC: M ED 08:50
DX: S81.012A Laceration without foreign body, left knee, initial encounter (principal); Y28.0XXA Contact with sharp glass, undetermined intent, initial encounter; Y92.009 Unspecified place in unspecified non-institutional (private) residence as the place of occurrence of the external cause

== ENCOUNTER 2023-09-17 11:20 | Emergency (ER) | payer BC ==
[~2023-09-17] VITALS: Ht 172.7 cm; Wt 90.3 kg
[~2023-09-17 11:20] MED LIST changes: +BUPR-597; -BUPR300T92
[2023-09-17 12:50] LABS: RSV AMPLIFICATION NEGATIVE (NEGATIVE)
[2023-09-17] MEDS ORDERED: BENZ200C70 PO (13:46)
[2023-09-17] MEDS ORDERED: PSEU120T19 PO (13:46)
[2023-09-17 13:59] VITALS: BP 126/78; TEMP 98.7; O2SAT 99
== END 2023-09-17 14:01 | disposition home or self-care (01) ==
LOC: M ED 11:20
DX: J06.9 Acute upper respiratory infection, unspecified (principal); R05.9 Cough, unspecified; F41.9 Anxiety disorder, unspecified; F32.A Depression, unspecified; F10.10 Alcohol abuse, uncomplicated; Z79.811 Long term (current) use of aromatase inhibitors; Z79.899 Other long term (current) drug therapy